=== PATIENT | male | born 1965 | race Caucasian/White ===

== ENCOUNTER 2018-03-22 14:25 | Outpatient (CLI) | payer MEDICAID, SELFPAY ==
--- NOTE | 2018-03-22 13:02 | DI.RAD_ITS ---
SYMPTOM/DIAGNOSIS: BLUNT TRAUMA, LT SIDE OF HEAD, CERVICAL SPINE: Odontoid, AP and lateral and bilateral oblique views were obtained. There are no priors for comparison. There is normal alignment of the cervical spine. The odontoid is intact. The lateral masses are well aligned. No acute or healing fractures or subluxations are seen. Mild degenerative changes are seen in the cervical spine, particularly at the C 5-6 level. The bones are normally mineralized. There is no prevertebral soft tissue swelling. IMPRESSION: No acute or healing fracture or subluxation in the cervical spine.
== END 2018-03-22 14:45 ==
PROVIDERS: PCP Family Medicine; Visit Provider Family Medicine
DX: S09.90XA Unspecified injury of head, initial encounter
CPT/HCPCS: 72050

== ENCOUNTER 2020-11-04 10:31 | Outpatient (CLI) | payer MEDICAID, SELFPAY ==
[2020-11-04 12:32] LABS: Hemoglobin A1C 5.3 % (<5.7)
[2020-11-04 12:37] LABS: ALT 33 U/L (16-63); AST 23 U/L (15-37); Albumin 3.7 g/dL (3.4-5.0); Alkaline Phosphatase 63 U/L (46-116); Anion Gap 7.9 mmol/L (3-11); BUN 14 mg/dL (7-18); Bilirubin, Total 0.8 mg/dL (0.2-1.0); CO2 30.1 mmol/L (21.0-32.0); CREATININE 1.2 mg/dL (0.70-1.30); Calcium 9.2 mg/dL (8.5-10.1); Calculated LDL 143 mg/dL (<100); Chloride 104 mmol/L (98-107); Cholesterol 200 mg/dL (<200); Glucose 98 mg/dL (74-106); HDL Cholesterol 45 mg/dL (40-60); Potassium 4.2 mmol/L (3.5-5.1); Sodium 142 mmol/L (136-145); Total Protein 6.7 g/dL (6.4-8.2); Triglyceride 62 mg/dL (<150)
[2020-11-04 17:00] LABS: PSA, Screening 0.7 ng/mL (0.0-3.5)
== END 2020-11-04 10:32 | disposition home or self-care (01) ==
LOC: LOS 10:32
PROVIDERS: PCP Nurse Practitioner Family; Referring Provider Nurse Practitioner Family; Visit Provider Nurse Practitioner Family
DX: Z13.228 Encounter for screening for other metabolic disorders (principal); Z13.1 Encounter for screening for diabetes mellitus; Z13.220 Encounter for screening for lipoid disorders; Z12.5 Encounter for screening for malignant neoplasm of prostate; Z00.00 Encounter for general adult medical examination without abnormal findings
CPT/HCPCS: 36415; 80053; 80061; 84153; 83036

== ENCOUNTER 2021-02-10 19:05 | Outpatient (REF) | payer MEDICAID, SELFPAY ==
[2021-02-10 22:03] LABS: Bilirubin Negative (Negative); Blood Trace-intact (Negative); Clarity Sl Cloudy (Clear); Glucose Negative (Negative); Ketones Negative (Negative); Leukocyte Esterase Small (Negative); Nitrite Negative (Negative); Specific Gravity 1.025 (1.005-1.025); Urobilinogen 0.2 EU/dL (Up TO 0.2)
[2021-02-10 22:12] LABS: Bacteria Few HPF (Negative); C & S Indicated? Yes; Casts Negative LPF (Negative); Crystals Negative HPF (Negative); Epithelial Cells Few HPF (Negative); Mucus Negative (Negative)
== END 2021-02-10 19:06 | disposition home or self-care (01) ==
LOC: NCHCN 19:05
PROVIDERS: PCP Nurse Practitioner Family; Visit Provider Physician Assistant
DX: N39.0 Urinary tract infection, site not specified (principal)
CPT/HCPCS: 87077; 81003; 81015; 87086; 87186

== ENCOUNTER 2021-05-14 12:18 | Outpatient (CLI) | payer MEDICAID, SELFPAY ==
--- NOTE | 2021-05-14 12:00 | DI.RAD_ITS ---
Exam(s) XR ANKLE RT COMPLETE EXAM: XR ANKLE RT COMPLETE CLINICAL HISTORY: Dropped a dump truck tailgate on right ankle, injury, S92.580D. TECHNIQUE: 2D digital imaging was performed. COMPARISON: No exams were available for comparison FINDINGS: There is soft tissue swelling laterally but no fracture or widening of the mortise. Talar dome unrem arkable. Base of the 5th metatarsal is unremarkable. No osseous tarsal coalition. Bone density nor mal. IMPRESSION: Soft tissue swelling but no acute fractures evident. DATA REPOSITORY: RADIATION DOSE DELIVERED:
== END 2021-05-14 12:38 ==
PROVIDERS: PCP Nurse Practitioner Family; Visit Provider Nurse Practitioner Family
DX: M79.9 Soft tissue disorder, unspecified (principal)
CPT/HCPCS: 73610

== ENCOUNTER 2022-05-12 13:44 | Inpatient (IN) | payer MEDICAID, SELFPAY ==
[2022-05-12] VITALS (25 sets, daily range): BP systolic 111–124; BP diastolic 69–76; PULSE 59–74; RESP 15–27; TEMP 36.9–37; O2SAT 92–99
--- NOTE | 2022-05-12 14:00 | DI.RAD_ITS ---
Exam(s) XR PORTABLE CHEST AP EXAM: XR PORTABLE CHEST AP CLINICAL HISTORY: Covid Positive, Productive cough, R/O PNA. TECHNIQUE: 2D digital imaging was performed. COMPARISON: CR CHEST 2 VIEWS PA,LAT from 07/27/2017 FINDINGS: Single AP portable view. Heart size is upper normal. The mediastinum is not widened. There are extensive patchy bilateral infiltrates throughout both lung carlin. No obvious pleural eff usions. IMPRESSION: Bilateral extensive patchy infiltrates No obvious pleural effusions evident. DATA REPOSITORY: RADIATION DOSE DELIVERED:
--- NOTE | 2022-05-12 14:31 | ED.GENADUL_ITS ---
Discharge Plan Disposition Patient Disposition: Admit to [facility] Condition: Serious Discharge Details Clinical Impression: COVID-19, Hypoxia Admit Date/Time: 05/12/22 16:39 Admit Provider: Kathia Peterson Attending Provider: Kathia Peterson Primary Care Provider: Nathaniel Gallagher ED Provider: Juan Samuels Discharge Data Discharge Date/Time-TO BE ENTERED AT DEPARTURE: 05/12/22 17:28 Medical Decision Making <Martha Valdez NP - Last Filed: 05/14/22 08:40> 56-year-old male presents to the ER with chief complaint of increased shortness of breath and productive cough with thick brown sputum. He reports that a week ago Wednesday he was tested positive for COVID. He reports that this morning he was given a oximeter and after walking to the bathroom his oxygen dropped to 75% on room air he sat down approximately 15 minutes later it came up above 90. He has no significant past medical history other than obesity. He reports increased fatigue decreased appetite and diarrhea fever and body aches. Patient moved to a monitored room to allow for continuous pulse oximetry, labs ordered including procalcitonin chest x-ray shows bilateral patchy infiltrates consistent with COVID-19. Informed staff development coordinator that patient desatted to 85% on room air upon walking to a different room was placed on 2 L nasal cannula and is now satting 97%. Work-up ordered including CBC, CMP, troponin, procalcitonin, dexamethasone 6 mg IV, normal saline and remdesivir. Blood cultures x2 ordered chest CT without contrast. CBC shows white blood cell count of 3.34, leukopenia, BUN 20 creatinine 1.1, calcium slightly low at 8.3, AST and ALT are elevated at 92 and 105 initial troponin within normal limits less than 50, albumin is 2.8 procalcitonin is pending at this time. 1526: Hospitalist paged, I did discuss possible admission due to the hypoxia with patient who verbalizes understanding and is in agreement with plan. Remdesivir was ordered, 1536: Spoke with Dr. Cardoza with hospitalist she would like to wait till CT chest is completed and D-dimer. I did discuss patient case in details with her. She recommends adding on a D-dimer. This was placed. Care is to be handed off to oncoming provider Yash Samuels NP pending CT chest and admission. ND 1600-patient signed out to me pending CT imaging and admission. Please see previous documentation for initial work-up by Martha Valdez NP. We will co yonis to monitor patient. 1635-received verbal report from radiologist as stated significant COVID- pneumonia was noted but no pulmonary embolism. This was communicated to the hospitalist whom stated she would admit patient for further care. Patient remained stable throughout emergency department stay with stable vital signs. Lab Data Lab results reviewed: Yes I reviewed the patient's lab results. Labs: 05/12/22 14:46 Blood Blood Culture - Pending 05/12/22 14:46 Blood Blood Culture - Pending Laboratory Tests Range/Units 05/12/22 05/12/22 05/12/22 14:40 14:40 14:40 WBC (4.4-10.8) 10^3/uL 3.34 L RBC (4.36-5.78) 10^6/uL 4.55 Hgb (13.5-17.5) g/dL 14.8 Hct (40.0-50.0) % 43.6 MCV (80-95) fL 96 H MCH (27.0-33.0) pg 32.5 MCHC (32.0-36.0) % 33.9 RDW (11.8-14.1) % 12.8 Plt Count (130-400) 10^3/uL 157 MPV (8.0-11.0) fL 8.4 Immature Gran % 0.3 Neutrophils % 70.9 Lymphocytes % 21.9 Monocytes % 6.3 Eosinophils % 0.3 Basophils % 0.3 Nucleated RBC % (0.0-0.3) % 0.0 Absolute Neutrophils (1.2-6.7) 10^3/uL 2.37 Absolute Lymphocytes (1.2-3.4) 10^3/uL 0.73 L Absolute Monocytes (0.1-0.8) 10^3/uL 0.21 Absolute Eosinophils (0.0-0.7) 10^3/uL 0.01 Absolute Basophils (0.0-0.2) 10^3/uL 0.01 Sodium (136-145) mmol/L 141 Potassium (3.5-5.1) mmol/L 3.7 Chloride (98-107) mmol/L 105 Carbon Dioxide (21.0-32.0) mmol/L 29.4 Anion Gap (3-11) mmol/L 6.6 BUN (7-18) mg/dL 20 H Creatinine (0.70-1.30) mg/dL 1.1 Est GFR (CKD-EPI 2020) (mL/min/1.73m2) 78.30 Glucose (74-106) mg/dL 101 Calcium (8.5-10.1) mg/dL 8.3 L Magnesium (1.8-2.4) mg/dL 2.2 Total Bilirubin (0.2-1.0) mg/dL 0.3 AST (15-37) U/L 92 H ALT (16-63) U/L 105 H Alkaline Phosphatase (46-116) U/L 102 Troponin I (<or=60) ng/L < 50 Total Protein (6.4-8.2) g/dL 6.7 Albumin (3.4-5.0) g/dL 2.8 L Procalcitonin ng/mL 0.2 <Juan Samuels DULSER - Last Filed: 05/12/22 21:46> 56-year-old male presents to the ER with chief complaint of increased shortness of breath and productive cough with thick brown sputum. He reports that a week ago Wednesday he was tested positive for COVID. He reports that this morning he was given a oximeter and after walking to the bathroom his oxygen dropped to 75% on room air he sat down approximately 15 minutes later it came up above 90. He has no significant past medical history other than obesity. He reports increased fatigue decreased appetite and diarrhea fever and body aches. Patient moved to a monitored room to allow for continuous pulse oximetry, labs ordered including procalcitonin chest x-ray shows bilateral patchy infiltrates consistent with COVID-19. Informed staff development coordinator that patient desatted to 85% on room air upon walking to a different room was placed on 2 L nasal cannula and is now satting 97%. Work-up ordered including CBC, CMP, troponin, procalcitonin, dexamethasone 6 mg IV, normal saline and remdesivir. Blood cultures x2 ordered chest CT without contrast. CBC shows white blood cell count of 3.34, leukopenia, BUN 20 creatinine 1.1, calcium slightly low at 8.3, AST and ALT are elevated at 92 and 105 initial troponin within normal limits less than 50, albumin is 2.8 procalcitonin is pending at this time. 1526: Hospitalist pageselena, I did discuss possible admission due to the hypoxia with patient who verbalizes understanding and is in agreement with plan. 1536: Spoke with Dr. Redding with hospitalist she would like to wait till CT chest is completed and D-dimer. I did discuss patient case in details with her. Care is to be handed off to oncoming provider Yash Samuels NP pending CT chest and admission. ND 1600-patient signed out to me pending CT imaging and admission. Please see previous documentation for initial work-up by Martha Valdez NP. We will continue to monitor patient. 1635-received verbal report from radiologist as stated significant COVID- pneumonia was noted but no pulmonary embolism. This was communicated to the hospitalist whom stated she would admit patient for further care. Patient remained stable throughout emergency department stay with stable vital signs. HPI <Martha Valdez NP - Last Filed: 05/14/22 08:40> General Mode of arrival: ambulatory . Date/Time Provider Initiated Documentation: 05/12/22 13:59 . Limitations to Documentation: no limitations . Information obtained by: patient, RN notes reviewed and old records reviewed . HPI Narrative: 56-year-old male presents to the ER with chief complaint of increased shortness of breath and productive cough with thick brown sputum. He reports that a week ago Wednesday he was tested positive for COVID. He reports that this morning he was given a oximeter and after walking to the bathroom his oxygen dropped to 75% on room air he sat down approximately 15 minutes later it came up above 90. He has no significant past medical history other than obesity. He reports increased fatigue decreased appetite and diarrhea fever and body aches. Upon arrival of breathing and pulse eupneic he is satting 92% on room air. No abdominal pain. Related Data Home Medications Medication Instructions Recorded Confirmed Unknown [No Known Home Meds] 05/14/21 05/12/22 Allergies Allergy/AdvReac Type Severity Reaction Status Date / Time bee venom protein (honey bee) Allergy Unknown Verified 05/12/22 13:55 General Stated Complaint: SOB BECKI: 3 Review of Systems <Martha Valdez NP - Last Filed: 05/14/22 08:40> All systems reviewed & are unremarkable except as noted in HPI and below Constitutional Constitutional: Reports body ache(s), Reports fatigue, Reports fever(s), Reports headache(s), Reports lethargy, Reports malaise and Reports poor appetite ENT Ears, Nose, Mouth, and Throat: Reports headache(s) Cardiovascular Cardiovascular: Reports dyspnea Respiratory Respiratory: Reports as per HPI, Reports cough, Reports excessive phlegm production and Reports dyspnea Gastrointestinal Gastrointestinal: Denies abdominal pain and Reports diarrhea Neurologic Neurologic: Reports headache(s) Endocrine Endocrine: Reports fatigue PFSH <Martha Valdez NP - Last Filed: 05/14/22 08:40> All Active Problems (Updated 05/12/22 @ 19:04 by Carla Martinez NP) Body aches (Acute) Fatigue (Acute) Discharge planning issues (Acute) DVT prophylaxis (Acute) Hypoxia (Acute) COVID-19 (Acute) Onset-05/03/22 Obesity (BMI 30.0-34.9) (Acute) Sprain of left thumb (Acute) Surgical History Colonoscopy - IV Sedation (10/05/16) Family History Mother , 65 No problems noted. Father , 81 No problems noted. Sister No problems noted. Brother No problems noted. Brother , 53 No problems noted. Brother No problems noted. Maternal Grandfather No problems noted. Paternal Grandfather , 77 No problems noted. Maternal Grandmother No problems noted. Paternal Grandmother , 91 No problems noted. Son No problems noted. Son No problems noted. Daughter No problems noted. Social History Smoking/Tobacco Use Status: Never Second Hand Exposure: Yes Smoking risk assessment performed?: Yes Alcohol Intake: never Drug use: Rarely Substance use type: marijuana Caregiver/Support person: No Household members: children Housing: house Communication Needs: None Do you need help understanding health information?: Never current occupation: DATA ENTRY PROCESSOR Pets and animals: Yes Pets and animals: cat(s) Sexually active: No Do you think of yourself as: straight/heterosexual Current gender identity: male What is your relationship status?: How often do you talk on the phone with friends or family?: three or more times per week How often do you get together with friends or relatives?: three or more times per week How often do you attend lutheran or faith services?: 1-3 times per year Do you belong to any clubs or organized social groups?: no Panel score (0-1 are the most socially isolated patients): 1 What type of physical activity do you participate in: other Details: Work Duration: 15-30 minutes/day Frequency: 5-6 times per week Francie/Taoist: Yazdanism Special francie needs: No Seatbelt use: sometimes Helmet use: Yes Helmet use: always Drive intox or ride w/intox after school driver: No Do you feel safe at home: Yes Do you feel safe in your relationship?: Yes Exam <Martha Valdez NP - Last Filed: 05/14/22 08:40> Narrative Exam Narrative: Constitutional: Alert and oriented x3. Appears stated age. Normal body habitus. Head: Normocephalic, no trauma. Eyes: Pupils PERRL, Red reflex noted, EOM's intact. Eyelids symmetrical without lesions, discharge, or swelling. ENT: Bilateral TM's WNL, External ear normal to inspection, no mastoid TTP, swelling, or erythema, Nasal turbinates WNL, no nasal discharge. Normal dentition, Posterior pharynx WNL, no exudate. Chest: RRR, Normal S1, S2, distal pulses intact. Resp: Lungs somewhat diminished on the basis, no wheezes, rales, or rhonchi. Abdomen: Soft, non-distended, Normoactive bowel sounds all 4 quads. Musculoskeletal: Normal gait, 5/5 strength to all four extremities. Skin: No suspicious rashes or lesions. Capillary refill less than 2 sec. Neurologic: Cranial nerves II-XII intact. Alert and oriented x 3. Motor: No deficits noted. Sensory: Intact bilaterally all 4 extremities. Reflexes: DTR's intact bilaterally.. Hematologic/Lymphatic: No ecchymosis, no lymphadenopathy. Course <Martha Valdez NP - Last Filed: 05/14/22 08:40> Vital Signs Vital signs: Vital Signs Temperature 37.0 C 05/12/22 13:53 Pulse 73 05/12/22 13:53 Respiratory Rate 20 05/12/22 13:53 Blood Pressure 111/69 05/12/22 13:53 Pulse Oximetry 92 05/12/22 13:53 Temperature 37.0 C 05/12/22 13:53 Temperature Source Temporal Artery Scan 05/12/22 13:53 Pulse 73 05/12/22 13:53 Respiratory Rate 20 05/12/22 14:20 Respiratory Effort 05/12/22 14:20 Respiratory Depth Normal 05/12/22 14:20 Respiratory Pattern Normal 05/12/22 14:20 Blood Pressure 111/69 05/12/22 13:53 Blood Pressure Position Sitting 05/12/22 13:53 Pulse Oximetry 92 05/12/22 13:53 Oxygen Delivery Method Room Air 05/12/22 13:53 Oxygen Flow Rate 0 05/12/22 13:53 Pain Level 0 05/12/22 13:53 Sign Out <Martha Valdez NP - Last Filed: 05/14/22 08:40> Sign Out Data: Sign Out Comment: COVID-positive, desats to 85% with exertion. Pending CT chest D-dimer and admission. I did speak with hospitalist regarding patient. Last updated by Martha Valdez NP at 05/12/22 15:46
[2022-05-12 14:46] LABS: Abs Immature Grans 0.01 10^3/uL (0.0-0.06); Absolute Basophil Count 0.01 10^3/uL (0.0-0.2); Absolute Eosinophil Count 0.01 10^3/uL (0.0-0.7); Absolute Lymphocyte Count 0.73 10^3/uL (1.2-3.4); Absolute Monocyte Count 0.21 10^3/uL (0.1-0.8); Absolute Neutrophil Count 2.37 10^3/uL (1.2-6.7); Basophils % 0.3; Eosinophils % 0.3; HCT 43.6 % (40.0-50.0); HGB 14.8 g/dL (13.5-17.5); Immature Grans % 0.3; Lymphocytes % 21.9; MCH 32.5 pg (27.0-33.0); MCHC 33.9 % (32.0-36.0); MCV 96 fL (80-95); MPV 8.4 fL (8.0-11.0); Monocytes % 6.3; Neutrophils % 70.9; Platelet Count 157 10^3/uL (130-400); RBC 4.55 10^6/uL (4.36-5.78); RDW 12.8 % (11.8-14.1); RDW-SD 45.3 fL; WBC 3.34 10^3/uL (4.4-10.8)
[2022-05-12 15:07] LABS: ALT 105 U/L (16-63); AST 92 U/L (15-37); Albumin 2.8 g/dL (3.4-5.0); Alkaline Phosphatase 102 U/L (46-116); Anion Gap 6.6 mmol/L (3-11); BUN 20 mg/dL (7-18); Bilirubin, Total 0.3 mg/dL (0.2-1.0); CO2 29.4 mmol/L (21.0-32.0); CREATININE 1.1 mg/dL (0.70-1.30); Calcium 8.3 mg/dL (8.5-10.1); Chloride 105 mmol/L (98-107); Glucose 101 mg/dL (74-106); Magnesium 2.2 mg/dL (1.8-2.4); Potassium 3.7 mmol/L (3.5-5.1); Sodium 141 mmol/L (136-145); Total Protein 6.7 g/dL (6.4-8.2); Troponin I < 50 ng/L (<or=60)
--- NOTE | 2022-05-12 15:15 | RT.EKG_ITS ---
APPROVED REPORT Exam: Resting ECG Reason for Exam: SOB Patient Location: E HR:75 bpm ECG Measurements Heart Rate 75 AXIS ID 178 P 35 QRSd 106 QRS -22 QT 394 T 15 QTc 439 Conclusion Sinus rhythm...normal P axis, V-rate 60- 99 Probable left ventricular hypertrophy...multiple LVH criteria
--- NOTE | 2022-05-12 15:30 | DI.CT_ITS ---
Exam(s) CT CHEST PE CTA EXAM: CT CHEST PE CTA CLINICAL HISTORY: R/O PE, Covid Positive. TECHNIQUE: Imaging Protocol: CT angiography of the chest was performed using pulmonary embolus elsy col. Multi planar reconstructions were performed. CONTRAST MATERIAL: Intravenous: Omnipaque 350 Contrast volume: 100 cc COMPARISON: CR XR PORTABLE CHEST AP from 05/12/2022 FINDINGS: CHEST: PULMONARY ARTERIES: There are no intraluminal filling defects to suggest acute pulmonary emboli. LUNGS: There are extensive bilateral ground-glass infiltrates involving all lobes both lungs, suspici ous for Covid- 19 pneumonia. There are no pleural effusions. MEDIASTINUM: There is no hilar nor mediastinal adenopathy. CARDIAC: Heart size is upper normal. There is no pericardial effusion.Caliber of the thoracic aorta is within normal limits. There is no significant shift of the interventricular septum. PARTIALLY VISUALIZED UPPERMOST ABDOMEN: No obvious findings OSSEOUS: No significant osseous lesions.There is a compression fracture of the mid-lower thoracic bod y superior endplate which does not have an acute appearance.. IMPRESSION: 1. Extensive bilateral ground-glass infiltrates highly suspicious for Covid-19 pneumonia..No pleural effusions. 2. No evidence of acute pulmonary emboli. 3. No evidence of aortic dissection. RADIATION DOSE DELIVERED: 530.3mGy.cm Total DLP DATA REPOSITORY: All CT scans at this facility are submitted to the National Radiology Data Registry (NRDR) Dose Index Registry (DIR) with the [employer] (ACR). RADIATION OPTIMIZATION: All CT scans at this facility use at least one of these dose optimization te chniques: automated exposure control; mA and/or kV adjustment per patient size (includes targeted exa ms where dose is matched to clinical indication); or iterative reconstruction.
[2022-05-12 15:36] LABS: Procalcitonin 0.2 ng/mL
[2022-05-12] MEDS: Dexamethasone 4 MG/ML VIAL 6 MG IVP (15:39)
[2022-05-12] MEDS: REMDESIVIR 200 MG in Normal Saline 250 ML 250 MG IVPB (15:39)
[2022-05-12] MEDS: Albuterol HFA 8 GM 60 PUFF INH IH (15:39)
[2022-05-12] MEDS: Normal Saline 1,000 ML 250 ML IV (15:39)
[2022-05-12 15:44] LABS: Source Nasal/Nares
[2022-05-12] MEDS: Normal Saline - Diluent 50 ML VIAL IV (15:57)
[2022-05-12] MEDS: Omnipaque 350 MG/ML 500 ML BTL-Imaging package IJ (16:03)
[2022-05-12 16:21] LABS: COVID-19 PCR POSITIVE (Negative)
[2022-05-12 16:38] LABS: D-Dimer 767 ng/mlFEU (<500)
[2022-05-12 17:11] LABS: Lab Add On Test DONE
[2022-05-12 17:23] LABS: C-Reactive Protein 9.76 mg/dL (0.0-0.3)
--- NOTE | 2022-05-12 17:58 | HPE_ITS ---
Date of service: 05/12/22 Time of Service: 17:58 Assessment and Plan Assessment and plan (1) COVID-19: Status: Acute Assessment and plan: Positive covid test at home 10 days ago. Positive Covid PCR here today. Increasing diff breathing - dexamethasone and remdesivir; oxygen as needed CTA of chest - No PE; significant bilat pneumonia Telemetry Continuous SPO2 monitoring (2) Fatigue: Status: Acute Assessment and plan: Rest, nutrition, melatonin @ HS (3) Body aches: Status: Acute Assessment and plan: Tylenol prn (4) Hypoxia: Status: Acute Assessment and plan: SPO2 currently > 92% RA Monitor - oxygen prn Acapella & IS (5) DVT prophylaxis: Status: Acute Assessment and plan: Enoxaparin (6) Discharge planning issues: Status: Acute Assessment and plan: Home when stable History of Present Illness History of Present Illness Chief Complaint: Shortness of breath Narrative: This is a 56-year-old male patient with no significant past medical history other than obesity, non-smoker, presented to the [facility] emergency department with the chief complaint of increased shortness of breath and productive cough, with thick brown sputum.? He reports he tested positive for COVID on 05/03/22.? He reports this morning he was given an oximeter and after walking to the bathroom and feeling short of breath, his oxygen dropped to 75% on room air. He states he then sat down for approximately 15 minutes, was not short of breath at rest, rechecked his SPO2 and it was above 90.? He states he feels fatigue, has a decreased appetite, diarrhea fever and body aches.? In the emergency department, he was not short of breath and SPO2 > 92% on room air.? He denied abdominal pain. Chest x-ray shows extensive bilateral patchy infiltrates consistent with COVID-19, no pleural effusions. Chest CT: 1. Extensive bilateral ground-glass infiltrates highly suspicious for Covid-19 pneumonia..No pleural effusions. 2. No evidence of acute pulmonary emboli. 3. No evidence of aortic dissection. CBC 3.34; H/H 14/43; K 3.7; BUN 20 Creat 1.1; Trop neg; procal 0.2 He has significant covid pneumonia, and is placed on observation status for Remdesevir infusion and steroids. He is stable on room air. Review of Systems All systems reviewed & are unremarkable except as noted in HPI and below PFSH All Active Problems (Updated 05/12/22 @ 19:04 by Carla Martinez NP) Body aches (Acute) Fatigue (Acute) Discharge planning issues (Acute) DVT prophylaxis (Acute) Hypoxia (Acute) COVID-19 (Acute) Onset-05/03/22 Obesity (BMI 30.0-34.9) (Acute) Sprain of left thumb (Acute) Surgical History Colonoscopy - IV Sedation (10/05/16) Family History Mother , 65 No problems noted. Father , 81 No problems noted. Sister No problems noted. Brother No problems noted. Brother , 53 No problems noted. Brother No problems noted. Maternal Grandfather No problems noted. Paternal Grandfather , 77 No problems noted. Maternal Grandmother No problems noted. Paternal Grandmother , 91 No problems noted. Son No problems noted. Son No problems noted. Daughter No problems noted. Social History Smoking/Tobacco Use Status: Never Second Hand Exposure: Yes Smoking risk assessment performed?: Yes Alcohol Intake: never Drug use: Rarely Substance use type: marijuana Caregiver/Support person: No Household members: children Housing: house Communication Needs: None Do you need help understanding health information?: Never current occupation: MEDICAL INSTRUMENT TECHNICIAN Pets and animals: Yes Pets and animals: cat(s) Sexually active: No Do you think of yourself as: straight/heterosexual Current gender identity: male What is your relationship status?: How often do you talk on the phone with friends or family?: three or more times per week How often do you get together with friends or relatives?: three or more times per week How often do you attend scientology or samaritan services?: 1-3 times per year Do you belong to any clubs or organized social groups?: no Panel score (0-1 are the most socially isolated patients): 1 What type of physical activity do you participate in: other Details: Work Duration: 15-30 minutes/day Frequency: 5-6 times per week Francie/Episcopalian: Restorationist Special francie needs: No Seatbelt use: sometimes Helmet use: Yes Helmet use: always Drive intox or ride w/intox emergency vehicle driver: No Do you feel safe at home: Yes Do you feel safe in your relationship?: Yes Meds Allergies and Home Medications Allergies Allergy/AdvReac Type Severity Reaction Status Date / Time bee venom protein (honey bee) Allergy Unknown Verified 05/12/22 13:55 Home Medications Medication Instructions Recorded Confirmed Type benzonatate 200 mg capsule 200 mg PO BID-TID PRN #30 caps 05/14/22 Rx prednisone 20 mg tablet 40 mg PO DAILY #10 tabs 05/14/22 Rx Exam Narrative Exam Narrative: Constitutional: Alert and oriented x3. Appears stated age. Normal body habitus. Head: Normocephalic, no trauma. Eyes: Pupils PERRL, Red reflex noted, EOM's intact. Eyelids symmetrical without lesions, discharge, or swelling. ENT: Bilateral TM's WNL, External ear normal to inspection, no mastoid TTP, swelling, or erythema, Nasal turbinates WNL, no nasal discharge. Normal dentiti on, Posterior pharynx WNL, no exudate. Chest: RRR, Normal S1, S2, distal pulses intact. Resp: Lungs somewhat diminished on the basis, no wheezes, rales, or rhonchi. Abdomen: Soft, non-distended, Normoactive bowel sounds all 4 quads. Musculoskeletal: Normal gait, 5/5 strength to all four extremities. Skin: No suspicious rashes or lesions. Capillary refill less than 2 sec. Neurologic: Cranial nerves II-XII intact. Alert and oriented x 3. Motor: No deficits noted. Sensory: Intact bilaterally all 4 extremities. Reflexes: DTR's intact bilaterally.. Hematologic/Lymphatic: No ecchymosis, no lymphadenopathy. Results Labs Result diagrams: 05/14/22 06:55 05/14/22 06:55 Labs: Laboratory Results - last 24 hr 05/12/22 05/12/22 05/12/22 14:40 14:40 14:40 WBC 3.34 L RBC 4.55 Hgb 14.8 Hct 43.6 MCV 96 H MCH 32.5 MCHC 33.9 RDW 12.8 Plt Count 157 MPV 8.4 Immature Gran % 0.3 Neutrophils % 70.9 Lymphocytes % 21.9 Monocytes % 6.3 Eosinophils % 0.3 Basophils % 0.3 Nucleated RBC % 0.0 Absolute Neutrophils 2.37 Absolute Lymphocytes 0.73 L Absolute Monocytes 0.21 Absolute Eosinophils 0.01 Absolute Basophils 0.01 D-Dimer Sodium 141 Potassium 3.7 Chloride 105 Carbon Dioxide 29.4 Anion Gap 6.6 BUN 20 H Creatinine 1.1 Est GFR (CKD-EPI 2020) 78.30 Glucose 101 Calcium 8.3 L Magnesium 2.2 Total Bilirubin 0.3 AST 92 H ALT 105 H Alkaline Phosphatase 102 Troponin I < 50 C-Reactive Protein Total Protein 6.7 Albumin 2.8 L Procalcitonin 0.2 COVID-19 Source SARS-CoV-2 (PCR) Add-On Test Request 05/12/22 05/12/22 05/12/22 14:40 15:30 15:55 WBC RBC Hgb Hct MCV MCH MCHC RDW Plt Count MPV Immature Gran % Neutrophils % Lymphocytes % Monocytes % Eosinophils % Basophils % Nucleated RBC % Absolute Neutrophils Absolute Lymphocytes Absolute Monocytes Absolute Eosinophils Absolute Basophils D-Dimer 767 H Sodium Potassium Chloride Carbon Dioxide Anion Gap BUN Creatinine Est GFR (CKD-EPI 2020) Glucose Calcium Magnesium Total Bilirubin AST ALT Alkaline Phosphatase Troponin I C-Reactive Protein 9.76 H Total Protein Albumin Procalcitonin COVID-19 Source Nasal/Nares SARS-CoV-2 (PCR) POSITIVE A* Add-On Test Request 05/12/22 16:37 WBC RBC Hgb Hct MCV MCH MCHC RDW Plt Count MPV Immature Gran % Neutrophils % Lymphocytes % Monocytes % Eosinophils % Basophils % Nucleated RBC % Absolute Neutrophils Absolute Lymphocytes Absolute Monocytes Absolute Eosinophils Absolute Basophils D-Dimer Sodium Potassium Chloride Carbon Dioxide Anion Gap BUN Creatinine Est GFR (CKD-EPI 2020) Glucose Calcium Magnesium Total Bilirubin AST ALT Alkaline Phosphatase Troponin I C-Reactive Protein Total Protein Albumin Procalcitonin COVID-19 Source SARS-CoV-2 (PCR) Add-On Test Request DONE Last Vital Signs Temp 37.0 C 05/12/22 13:53 Pulse 73 05/12/22 13:53 Resp 24 05/12/22 17:10 BP 111/69 05/12/22 13:53 Pulse Ox 94 05/12/22 17:10 PAWSS Have you Been Recently Intoxicated or Drunk Within the Last 30 days?: No Have you Ever Experienced Previous Episodes of Alcohol Withdrawal?: No Have you ever Experienced Withdrawal Seizures?: No Have you ever Experienced Delirium Tremens(DT)s?: No Have you ever undergone Alcohol Rehabilitation Treatment (i.e, inpt ot outpatient treatment programs)?: No Have you ever Experienced Blackouts?: No Have you ever Combined Alcohol with other Downers within the last 90 days?: No Have you ever Combined Alcohol with any other Substance of Abuse during the last 90 days?: No Positive Blood Alcohol level on Presentation? [PCS.BAL]: No Evidence of Increased Autonomic Activity (i.e. HR>120, tremor, sweating, agitation, nausea)?: No Result: 0
[2022-05-12] MEDS: Enoxaparin 40 MG/0.4 ML SYR SC (18:23)
[2022-05-12] MEDS: Acetaminophen 325 MG TAB PO (18:32)
[2022-05-12 18:46] LABS: Troponin I < 50 ng/L (<or=60)
[2022-05-12] MEDS: Ipratropium/Albuterol 4 GM 120 PUFF INH IH (21:05)
[2022-05-12] MEDS: Benzonatate 200 MG CAP PO (21:05)
[2022-05-12] MEDS: guaiFENesin 600 MG TABCR PO (21:05)
[2022-05-12] MEDS: Ascorbic Acid 500 MG TAB 1000 MG PO (21:05)
[2022-05-12] MEDS: Famotidine 20 MG TAB PO (21:05)
[2022-05-12] MEDS: Melatonin 3 MG TAB PO (21:06)
[2022-05-13] VITALS (15 sets, daily range): BP systolic 104–135; BP diastolic 62–86; PULSE 57–80; RESP 16–22; TEMP 36.2–37; O2SAT 88–98
[2022-05-13 07:07] LABS: Lactate 0.9 mmol/L (0.6-1.4)
[2022-05-13 07:08] LABS: Abs Immature Grans 0.01 10^3/uL (0.0-0.06); HCT 41.6 % (40.0-50.0); HGB 14.4 g/dL (13.5-17.5); MCH 32.8 pg (27.0-33.0); MCHC 34.6 % (32.0-36.0); MCV 95 fL (80-95); MPV 8.6 fL (8.0-11.0); Platelet Count 175 10^3/uL (130-400); RBC 4.39 10^6/uL (4.36-5.78); RDW 12.9 % (11.8-14.1); RDW-SD 45.2 fL; WBC 3.13 10^3/uL (4.4-10.8)
[2022-05-13 07:19] LABS: INR 0.9 (0.9-1.1); Prothrombin Time 9.3 sec (9.3-11.0)
[2022-05-13 07:44] LABS: D-Dimer 610 ng/mlFEU (<500)
[2022-05-13 07:55] LABS: ALT 116 U/L (16-63); AST 99 U/L (15-37); Albumin 2.5 g/dL (3.4-5.0); Alkaline Phosphatase 105 U/L (46-116); Anion Gap 8.5 mmol/L (3-11); BUN 21 mg/dL (7-18); Bilirubin, Direct 0.1 mg/dL (0.0-0.2); Bilirubin, Total 0.3 mg/dL (0.2-1.0); C-Reactive Protein 7.34 mg/dL (0.0-0.3); CO2 25.5 mmol/L (21.0-32.0); CREATININE 1.1 mg/dL (0.70-1.30); Calcium 8.3 mg/dL (8.5-10.1); Chloride 106 mmol/L (98-107); Glucose 114 mg/dL (74-106); Magnesium 2.1 mg/dL (1.8-2.4); PHOSPHORUS 3.8 mg/dL (2.6-4.7); Potassium 4.5 mmol/L (3.5-5.1); Sodium 140 mmol/L (136-145); Total Protein 6.3 g/dL (6.4-8.2)
[2022-05-13 08:07] LABS: Vitamin D 25 Total 98.6 ng/mL (30-100)
[2022-05-13 08:11] LABS: Absolute Neutrophil Count 2.47 10^3/uL (1.2-6.7)
[2022-05-13] MEDS: Zinc Sulfate 220 MG TAB PO (08:11)
[2022-05-13] MEDS: guaiFENesin 600 MG TABCR PO ×2 (08:11→21:19)
[2022-05-13] MEDS: Benzonatate 200 MG CAP PO ×3 (08:11→21:19)
[2022-05-13 08:12] LABS: Absolute Monocyte Count 0.16 10^3/uL (0.1-0.8); Atypical Lymphocytes % 5; Diff Comment Manual Differential; RBC Morphology Normal
[2022-05-13] MEDS: Ascorbic Acid 500 MG TAB 1000 MG PO ×2 (08:12→21:19)
[2022-05-13] MEDS: Cholecalciferol (Vitamin D3) 1,000 UNIT TAB 2000 UNITS PO (08:12)
[2022-05-13] MEDS: Dexamethasone 10 MG/ML VIAL 6 MG IVP (08:12)
[2022-05-13] MEDS: Ipratropium/Albuterol 4 GM 120 PUFF INH IH ×4 (08:21→20:15)
[2022-05-13 09:07] LABS: Ferritin 1857 ng/mL (26-388)
--- NOTE | 2022-05-13 14:00 | PHA.REVIEW2 ---
Pharmacy Admission Review - Admission Clinical Review (Last Reviewed 05/12/22 @ 14:34 by Martha Valdez NP) Body aches (Acute) Fatigue (Acute) Discharge planning issues (Acute) DVT prophylaxis (Acute) Hypoxia (Acute) COVID-19 (Acute) bee venom protein (honey bee) Allergy (Unknown, Verified 05/12/22 13:55) Resuscitation Status Full Code Height 5 ft 9 in Weight 87.8 kg - Comments Comments/Follow Ups: Remdesivir and dexamethasone initiated on 05/12, 0-3L sats in mid nineties - Renal Dosing Renal Dosing: BUN 21 mg/dL (7-18) H 05/13/22 06:55 Creatinine 1.1 mg/dL (0.70-1.30) 05/13/22 06:55 Medications needing adjustments: Reviewed List of meds needing interventions: eCrCl 81 ml/min - Anticoagulation Anticoagulation: Hgb 14.4 g/dL (13.5-17.5) 05/13/22 06:55 Hct 41.6 % (40.0-50.0) 05/13/22 06:55 Plt Count 175 10^3/uL (130-400) 05/13/22 06:55 INR 0.9 (0.9-1.1) 05/13/22 06:55 Creatinine 1.1 mg/dL (0.70-1.30) 05/13/22 06:55 DVT Prophylaxis: Reviewed Medications: Enoxaparin - Opiate Usage Evaluate Pain Scale/Pains Meds: N/A Scheduled Bowel Reg ordered if on Opiates?: No - Relevant Labs Sodium 140 mmol/L (136-145) 05/13/22 06:55 Potassium 4.5 mmol/L (3.5-5.1) 05/13/22 06:55 Chloride 106 mmol/L (98-107) 05/13/22 06:55 Phosphorus 3.8 mg/dL (2.6-4.7) 05/13/22 06:55 Magnesium 2.1 mg/dL (1.8-2.4) 05/13/22 06:55 C-Reactive Protein 7.34 mg/dL (0.0-0.3) H 05/13/22 06:55 Electrolytes, C-Reactive P, ESR: Reviewed - DM Control DM Control: Glucose 114 mg/dL (74-106) H 05/13/22 06:55 DM Control: N/A - Cardiac Review Cardiac Review: Troponin I < 50 ng/L (<or=60) 05/12/22 18:15 BP, HR, EF%: N/A - Qtc Review QTc: Reviewed If Elevated, List meds needing intervention: QTc 439 on admission - IV to PO Switch IV Medications: Reviewed - Home Meds Home Med List reviewed: Reviewed - Current meds Current Medication Order Review: Reviewed
[2022-05-13] MEDS: REMDESIVIR 100 MG in Normal Saline 250 ML 250 MG IVPB (14:20)
[2022-05-13] MEDS: Normal Saline Flush 10 ML SYR IVP (14:21)
[2022-05-13] MEDS: Normal Saline 500 ML IV (14:21)
--- NOTE | 2022-05-13 17:51 | INITIAL_ITS ---
- If Service Date Differs Date of service: 05/13/22 Time of Service: 17:51 Care Management Initial Assess REASON FOR HOSPITALIZATION:: COVID-19 Pneumonia with hypoxia PAST MEDICAL HISTORY/PAST SURGICAL HISTORY:: Body aches (Acute). Fatigue (Acute). Discharge planning issues (Acute). DVT prophylaxis (Acute). Hypoxia (Acute). COVID-19 (Acute). Onset-05/03/22. Obesity (BMI 30.0-34.9) (Acute). Sprain of left thumb (Acute). Surgical History . Colonoscopy - IV Sedation (10/05/16) PREVIOUS FUNCTIONAL STATUS/SOCIAL/FAMILY SUPPORTS:: Resides in [facility] at baseline. His son, Eddie resides in [place]. CURRENT FUNCTIONAL STATUS:: Assessment per chart review only; patient on COVID precautions. ADVANCE DIRECTIVES:: None on file. Has patient been provided with info about the portal/API?: Yes Did the patient sign up for the portal?: Yes CODE STATUS:: Full Code INSURANCE COVERAGE / FINANCIAL ISSUES:: [place] Medicaid PRIMARY CARE PHYSICIAN:: Nathaniel Gallagher POTENTIAL DISCHARGE NEEDS:: Follow up appointments. PATIENT/FAMILY EDUCATION NEEDS:: Review discharge instructions, discuss Ask Me Three. TRANSPORTATION:: Via private vehicle with [id number]. PLAN:: Anticipate Shawn will return home when ready per MD with no additional services anticipated at this time. He will transport via private vehicle with natural support or via EMS due to COVID. He will follow up with his PCP and plan of care as prescribed.
[2022-05-13] MEDS: Enoxaparin 40 MG/0.4 ML SYR SC (18:03)
--- NOTE | 2022-05-13 18:31 | W.PM.PROGNOT ---
Date of Service Date of service: 05/13/22 Time of Service: 18:32 Assessment and Plan Assessment and plan (1) COVID-19: Status: Acute Assessment and plan: Positive covid test at home 10 days ago. Positive Covid PCR here today. Increasing diff breathing - dexamethasone and remdesivir; oxygen as needed CTA of chest - No PE; significant bilat pneumonia Telemetry Continuous SPO2 monitoring (2) Fatigue: Status: Acute Assessment and plan: Rest, nutrition, melatonin @ HS (3) Body aches: Status: Acute Assessment and plan: Tylenol prn (4) Hypoxia: Status: Acute Assessment and plan: SPO2 currently > 92% RA Monitor - oxygen prn Acapella & IS (5) DVT prophylaxis: Status: Acute Assessment and plan: Enoxaparin (6) Discharge planning issues: Status: Acute Assessment and plan: Home when weaned off oxygen, hoping for tomorrow. discussed with DR Peterson Subjective Subjective Patient reports: no new complaints, feels better, tolerating liquids well, tolerating a regular diet, shortness of breath (markedly improved, remains hypoxic with activity) and afebrile Exam Const General: cooperative, healthy appearing, comfortable and no acute distress Nutritional Appearance: overweight Orientation: alert, awake and oriented x3 HENMT Head: normal to inspection, normocephalic and atraumatic Mouth: oral mucosae normal Chest Chest: normal inspection of the chest Resp Effort & Inspection: normal respiratory effort and able to speak in complete sentences Auscultation: rales bilaterally (fine) throughout, no rhonchi and no wheezes GI Inspection: normal to inspection Palpation: soft and nontender Auscultation: normal bowel sounds Skin General skin exam: no rashes or lesions noted Neuro General: patient alert, patient awake, patient oriented x3 and no focal motor deficits Cognition: normal cognition Speech: speech normal Motor: muscle tone normal throughout Extrem General: normal to inspection and full ROM Psych Appearance: grossly normal Speech and Movement: speech and movement normal Affect: normal affect Attitude: cooperative Objective Last Vital Signs Temp 36.2 C L 05/13/22 18:06 Pulse 60 05/13/22 18:06 Resp 20 05/13/22 18:06 BP 110/70 05/13/22 18:06 Pulse Ox 93 05/13/22 18:06 Laboratory Results - last 24 hr 05/12/22 05/13/2205/13/22 18:15 06:55 06:55 WBC RBC Hgb Hct MCV MCH MCHC RDW Plt Count MPV Immature Gran % Neutrophils % Lymphocytes % Atypical Lymphs % Monocytes % Eosinophils % Basophils % Nucleated RBC % Absolute Neutrophils Absolute Lymphocytes Absolute Monocytes Absolute Eosinophils Absolute Basophils RBC Morphology PT INR D-Dimer VBG Lactate Sodium 140 Potassium 4.5 Chloride 106 Carbon Dioxide 25.5 Anion Gap 8.5 BUN 21 H Creatinine 1.1 Est GFR (CKD-EPI 2020) 78.30 Glucose 114 H Calcium 8.3 L Phosphorus 3.8 Magnesium 2.1 Ferritin 1857 H Total Bilirubin 0.3 Conjugated Bilirubin 0.1 AST 99 H ALT 116 H Alkaline Phosphatase 105 Troponin I < 50 C-Reactive Protein 7.34 H Total Protein 6.3 L Albumin 2.5 L 25-OH Vitamin D Total 98.6 05/13/22 05/13/22 05/13/22 06:55 06:55 06:55 WBC 3.13 L RBC 4.39 Hgb 14.4 Hct 41.6 MCV 95 MCH 32.8 MCHC 34.6 RDW 12.9 Plt Count 175 MPV 8.6 Immature Gran % 0.0 Neutrophils % 79.0 Lymphocytes % 11.0 Atypical Lymphs % 5 Monocytes % 5.0 Eosinophils % 0.0 Basophils % 0.0 Nucleated RBC % 0.0 Absolute Neutrophils 2.47 Absolute Lymphocytes 0.50 L Absolute Monocytes 0.16 Absolute Eosinophils 0.00 Absolute Basophils 0.00 RBC Morphology Normal PT 9.3 INR 0.9 D-Dimer 610 H VBG Lactate 0.9 Sodium Potassium Chloride Carbon Dioxide Anion Gap BUN Creatinine Est GFR (CKD-EPI 2020) Glucose Calcium Phosphorus Magnesium Ferritin Total Bilirubin Conjugated Bilirubin AST ALT Alkaline Phosphatase Troponin I C-Reactive Protein Total Protein Albumin 25-OH Vitamin D Total PAWSS Have you Been Recently Intoxicated or Drunk Within the Last 30 days?: No Have you Ever Experienced Previous Episodes of Alcohol Withdrawal?: No Have you ever Experienced Withdrawal Seizures?: No Have you ever Experienced Delirium Tremens(DT)s?: No Have you ever undergone Alcohol Rehabilitation Treatment (i.e, inpt ot outpatient treatment programs)?: No Have you ever Experienced Blackouts?: No Have you ever Combined Alcohol with other Downers within the last 90 days?: No Have you ever Combined Alcohol with any other Substance of Abuse during the last 90 days?: No Positive Blood Alcohol level on Presentation? [PCS.BAL]: No Evidence of Increased Autonomic Activity (i.e. HR>120, tremor, sweating, agitation, nausea)?: No Result: 0
[2022-05-13] MEDS: Famotidine 20 MG TAB PO (21:19)
[2022-05-13] MEDS: Melatonin 3 MG TAB PO (21:19)
[2022-05-14] VITALS (8 sets, daily range): BP systolic 102–119; BP diastolic 64–75; PULSE 52–74; RESP 16–21; TEMP 36.2–36.9; O2SAT 89–95
[2022-05-14 07:17] LABS: Abs Immature Grans 0.04 10^3/uL (0.0-0.06); HCT 41.1 % (40.0-50.0); HGB 13.9 g/dL (13.5-17.5); MCH 32.4 pg (27.0-33.0); MCHC 33.8 % (32.0-36.0); MCV 96 fL (80-95); MPV 8.7 fL (8.0-11.0); Platelet Count 219 10^3/uL (130-400); RBC 4.29 10^6/uL (4.36-5.78); RDW 12.7 % (11.8-14.1); RDW-SD 45.4 fL; WBC 5.72 10^3/uL (4.4-10.8)
[2022-05-14 07:31] LABS: INR 0.9 (0.9-1.1); Prothrombin Time 9.4 sec (9.3-11.0)
[2022-05-14 07:36] LABS: ALT 107 U/L (16-63); AST 65 U/L (15-37); Albumin 2.5 g/dL (3.4-5.0); Alkaline Phosphatase 89 U/L (46-116); Anion Gap 6.5 mmol/L (3-11); BUN 28 mg/dL (7-18); Bilirubin, Direct 0.1 mg/dL (0.0-0.2); Bilirubin, Total 0.3 mg/dL (0.2-1.0); C-Reactive Protein 2.71 mg/dL (0.0-0.3); CO2 27.5 mmol/L (21.0-32.0); CREATININE 1.1 mg/dL (0.70-1.30); Calcium 8.5 mg/dL (8.5-10.1); Chloride 108 mmol/L (98-107); Glucose 114 mg/dL (74-106); Magnesium 2.1 mg/dL (1.8-2.4); Potassium 4.6 mmol/L (3.5-5.1); Sodium 142 mmol/L (136-145); Total Protein 6.4 g/dL (6.4-8.2)
[2022-05-14 07:45] LABS: Absolute Neutrophil Count 4.92 10^3/uL (1.2-6.7); Bands % 0
[2022-05-14 07:46] LABS: Absolute Lymphocyte Count 0.69 10^3/uL (1.2-3.4); Absolute Monocyte Count 0.11 10^3/uL (0.1-0.8); Atypical Lymphocytes % 5; Diff Comment Manual Differential; RBC Morphology Normal
[2022-05-14 07:54] LABS: D-Dimer 420 ng/mlFEU (<500)
[2022-05-14] MEDS: Ipratropium/Albuterol 4 GM 120 PUFF INH IH ×2 (08:08→12:00)
[2022-05-14] MEDS: guaiFENesin 600 MG TABCR PO (08:42)
[2022-05-14] MEDS: Zinc Sulfate 220 MG TAB PO (08:42)
[2022-05-14] MEDS: Ascorbic Acid 500 MG TAB 1000 MG PO (08:42)
[2022-05-14] MEDS: Cholecalciferol (Vitamin D3) 1,000 UNIT TAB 2000 UNITS PO (08:42)
[2022-05-14] MEDS: Benzonatate 200 MG CAP PO ×2 (08:43→13:36)
[2022-05-14] MEDS: Dexamethasone 10 MG/ML VIAL 6 MG IVP (08:43)
[2022-05-14] MEDS: Normal Saline Flush 10 ML SYR IVP (08:43)
--- NOTE | 2022-05-14 09:37 | PDOC.CMPRO ---
- If Service Date Differs Date of service: 05/14/22 Time of Service: 09:38 Care Management Progress Note S/O: A: Shawn is a 56 year old man admitted with Covid and pneumonia on 05/12/22 P:Anticipate Shawn will be discharged home with no new services when medically cleared by provider. He will follow up with his PCP and plan of care and transport with family. CM will support Shawn and assess for discharge planning needs.
[2022-05-14] MEDS: REMDESIVIR 100 MG in Normal Saline 250 ML 250 MG IVPB (13:37)
--- NOTE | 2022-05-14 14:51 | W.PM.DS.N ---
Date of service: 05/14/22 Time of Service: 14:51 DS: Diagnosis Discharge Diagnosis (1) COVID-19: Status: Acute Asessment and Plan: >10 days out; breathing improved; no oxygen requirements (2) Fatigue: Status: Resolved Asessment and Plan: Reports feeling more rested (3) Body aches: Status: Resolved (4) Hypoxia: Status: Resolved Asessment and Plan: no oxygen requirement Discharge Plan Disposition Patient Disposition: Home Condition: Improving Discharge Details Reason For Visit: COVID-19 Pneumonia with Hypoxia Admit Date/Time: 05/12/22 16:39 Admit Provider: Kathia Peterson Attending Provider: Kathia Peterson Primary Care Provider: Nathaniel Gallagher Hospital Course Hospital Course: This is a 56-year-old male patient with no significant past medical history other than obesity, non-smoker, presented to the [facility] emergency department with the chief complaint of increased shortness of breath and productive cough, with thick brown sputum.? He tested positive for COVID 19 on 05/03/22.? He was given an oximeter and after walking to the bathroom and also feeling short of breath, his oxygen dropped to 75% on room air.? He stated he then sat down for approximately 15 minutes, was not short of breath at rest, rechecked his SPO2 and it was above 90.? He complained of fatigue, having a decreased appetite, diarrhea fever and body aches.Chest x-ray showed extensive bilateral patchy infiltrates consistent with COVID-19, no pleural effusions. Chest CT: 1. Extensive bilateral ground-glass infiltrates highly suspicious for Covid-19 pneumonia..No pleural effusions. 2. No evidence of acute pulmonary emboli. 3. No evidence of aortic dissection. ?CBC 3.34; H/H 14/43; K 3.7; BUN 20 Creat 1.1; Trop neg; procal 0.2 He was diagnosed with significant covid pneumonia, and was placed on observation status for Remdesevir infusion and steroids.? He no longer has an oxygen requirement, vital signs have been stable, afebrile. He has received 3 doses of remdesevir. He is discharged stable to home with steroids and Benzonatate for cough as needed, along with albutlerol and combivent with a spacer as needed. Discussed with Dr Cherry Home Meds and New Rx's Prescriptions: New prednisone 20 mg tablet 40 mg PO DAILY Qty: 10 0RF benzonatate 200 mg capsule 200 mg PO BID-TID PRNQty: 30 0RF Discharge Instructions Instructions: Benzonatate (By mouth), Albuterol (By breathing), Ipratropium/Albuterol (By breathing), How to Use an Incentive Spirometer (DC), COVID-19 (Coronavirus Disease 2019) (DC) Stand Alone Forms: Nursing Discharge Form Referrals: Nathaniel Gallagher VINER OPERATOR [Primary Care Provider] - 06/08/22 3:40 pm () Activity:: Activity as Tolerated Equipment/Supplies:: No Equipment Needed Diet:: As Tolerated Discharge Orders Discharge Orders: Discharge Order (Routine); Ordered 05/14/22 Ordered By: Carla Martinez Discharge Data Discharge Date/Time-TO BE ENTERED AT DEPARTURE: 05/14/22 17:38 DS: Summary Time Spent with Patient providing and/or coordinating discharge services: Greater than 30 minutes Status at Discharge Functional status at discharge: independent ambulation Overall status at discharge: patient is back to baseline Mental Status: mental status grossly normal Speech and Movement: speech and movement normal Mood: congruent mood Affect: normal affect Exam Psych Mental Status: mental status grossly normal Speech and Movement: speech and movement normal Mood: congruent mood Affect: normal affect DS: Data Vitals/I&O Vitals and I&O: Vital Signs Temperature 36.9 C 05/14/22 14:38 Temperature Source Tympanic 05/14/22 14:38 Pulse 57 L 05/14/22 14:38 Pulse Rhythm Regular 05/14/22 08:45 Pulse 71 05/12/22 17:10 Respiratory Rate 16 05/14/22 14:38 Respiratory Effort Non-Labored 05/14/22 08:45 Respiratory Depth Normal 05/14/22 08:45 Respiratory Pattern Normal 05/14/22 08:45 Blood Pressure 119/64 05/14/22 14:38 Blood Pressure Position Sitting 05/12/22 13:53 Pulse Oximetry 92 05/14/22 14:38 Oxygen Delivery Method Room Air 05/14/22 14:38 Oxygen Flow Rate 0 05/14/22 14:38 Pain Level 0 05/14/22 14:38 Comment Sinus Rhythm 60-62- on monitor 05/13/22 01:22 Intake & Output 05/13/22 05/14/22 05/14/22 23:59 11:59 23:59 Intake Total 771.677 / 771.677 250 / 250 Output Total 200 / 500 1300 / 1300 Balance 571.677 / 271.677 -1300 / -1050 250 / -1050 Intake: IV 291.677 / 291.677 250 / 250 Oral 480 / 480 Output: Urine 200 / 500 1300 / 1300 Other: Urine Color Yellow Light Marni Urine Appearance Clear Clear Urine Odor None Voiding Methods Toilet Toilet Data Completed and Pending Labs on day of discharge: Labs from last 24 hours 05/14/22 05/14/22 05/14/22 06:55 06:55 06:55 WBC 5.72 RBC 4.29 L Hgb 13.9 Hct 41.1 MCV 96 H MCH 32.4 MCHC 33.8 RDW 12.7 Plt Count 219 MPV 8.7 Immature Gran % 0.0 Neutrophils % 86.0 Band Neutrophils % 0 Lymphocytes % 7.0 Atypical Lymphs % 5 Monocytes % 2.0 Eosinophils % 0.0 Basophils % 0.0 Nucleated RBC % 0.0 Absolute Neutrophils 4.92 Absolute Lymphocytes 0.69 L Absolute Monocytes 0.11 Absolute Eosinophils 0.00 Absolute Basophils 0.00 RBC Morphology Normal PT 9.4 INR 0.9 D-Dimer 420 Sodium 142 Potassium 4.6 Chloride 108 H Carbon Dioxide 27.5 Anion Gap 6.5 BUN 28 H Creatinine 1.1 Est GFR (CKD-EPI 2020) 78.30 Glucose 114 H Calcium 8.5 Magnesium 2.1 Total Bilirubin 0.3 Conjugated Bilirubin 0.1 AST 65 H ALT 107 H Alkaline Phosphatase 89 C-Reactive Protein 2.71 H Total Protein 6.4 Albumin 2.5 L Preliminary micro results at discharge 05/12/22 15:55 Blood Culture - Preliminary Blood NO GROWTH 24 HOURS 05/12/22 15:45 Blood Culture - Preliminary Blood NO GROWTH 24 HOURS PFSH All Active Problems (Updated 05/14/22 @ 17:35 by Carla Martinez NP) Discharge planning issues (Acute) DVT prophylaxis (Acute) COVID-19 (Acute) Onset-05/03/22 Obesity (BMI 30.0-34.9) (Acute) Sprain of left thumb (Acute) Surgical History Colonoscopy - IV Sedation (10/05/16) Family History Mother , 65 No problems noted. Father , 81 No problems noted. Sister No problems noted. Brother No problems noted. Brother , 53 No problems noted. Brother No problems noted. Maternal Grandfather No problems noted. Paternal Grandfather , 77 No problems noted. Maternal Grandmother No problems noted. Paternal Grandmother , 91 No problems noted. Son No problems noted. Son No problems noted. Daughter No problems noted. Social History Smoking/Tobacco Use Status: Never Second Hand Exposure: Yes Smoking risk assessment performed?: Yes Alcohol Intake: never Drug use: Rarely Substance use type: marijuana Caregiver/Support person: No Household members: children Housing: house Communication Needs: None Do you need help understanding health information?: Never current occupation: AMBULATORY TECHNOLOGIST Pets and animals: Yes Pets and animals: cat(s) Sexually active: No Do you think of yourself as: straight/heterosexual Current gender identity: male What is your relationship status?: How often do you talk on the phone with friends or family?: three or more times per week How often do you get together with friends or relatives?: three or more times per week How often do you attend mormonism or congregational services?: 1-3 times per year Do you belong to any clubs or organized social groups?: no Panel score (0-1 are the most socially isolated patients): 1 What type of physical activity do you participate in: other Details: Work Duration: 15-30 minutes/day Frequency: 5-6 times per week Francie/Buddhist: Zoroastrian Special francie needs: No Seatbelt use: sometimes Helmet use: Yes Helmet use: always Drive intox or ride w/intox airport shuttle driver: No Do you feel safe at home: Yes Do you feel safe in your relationship?: Yes
--- NOTE | 2022-05-14 17:11 | PDOC.CMDIS ---
- If Service Date Differs Date of service: 05/14/22 Time of Service: 17:11 LACE Index Scoring Tool - Questions: Length of Stay (in days): 2 Acuity (Admit via E.D.?): Yes E.D. Visits: 1 - Answers: Total Score: 6 Risk of Readmission: Low Risk Care Management Discharge Reason for Hospitalization: COVID-19 Pneumonia with hypoxia Discharge Plan: Shawn will return home with no additional services. He will transport via private vehicle with natural supportand follow up with his PCP and plan of care as prescribed. Patient/Family Education Needs: Review discharge instructions, activity, limitations, and discuss Ask Me Three.
== END 2022-05-14 17:38 | disposition home or self-care (01) | DRG 177 ==
LOC: ER 16:07 → MS 17:32
PROVIDERS: Registered Nurse Emergency; Admitting Provider Internal Medicine; Emergency Provider Nurse Practitioner Family; PCP Nurse Practitioner Family; Visit Provider Internal Medicine
DX: U07.1 COVID-19 (principal); J12.82 Pneumonia due to coronavirus disease 2019; R19.7 Diarrhea, unspecified; R09.02 Hypoxemia; M79.10 Myalgia, unspecified site; R53.83 Other fatigue; F12.90 Cannabis use, unspecified, uncomplicated; E66.9 Obesity, unspecified
CPT/HCPCS: 36415; 71275; 80048; 80053; 80076; 82306; 84145; 87040; 87635; 93005; 94618; 94640; 96361; 96365; 96375; 99285; J1650; 71045; 82728; 83605; 83735; 84100; 84484; 85025; 85379; 85610; 86140; 93010; 94664; 94667; 94760; 99222; 99232; 99239; J0248; J1100; J3490

== ENCOUNTER 2022-05-23 10:56 | Emergency (ER) | payer MEDICAID, SELFPAY ==
--- NOTE | 2022-05-23 10:45 | RT.EKG_ITS ---
APPROVED REPORT Exam: Resting ECG Reason for Exam: SOB Patient Location: E HR:72 bpm ECG Measurements Heart Rate 72 AXIS OR 183 P 32 QRSd 105 QRS -23 QT 376 T 8 QTc 410 Conclusion Sinus rhythm...normal P axis, V-rate 60- 99 Probable left ventricular hypertrophy...multiple LVH criteria
[2022-05-23 11:15] LABS: Lactate 1.6 mmol/L (0.6-1.4)
--- NOTE | 2022-05-23 11:16 | DI.CT_ITS ---
Exam(s) CT CHEST PE CTA EXAM: CT CHEST PE CTA CLINICAL HISTORY: Hx of Covid, SOB, Hypoxia. TECHNIQUE: Imaging Protocol: Axial CT angiography was performed with multi-slice acquisition and mu lti-planar reconstructions as well as axial, coronal and sagittal MIP reconstructions. CONTRAST MATERIAL: Intravenous: Omnipaque 350 Contrast volume:100 ml COMPARISON: CT CT CHEST PE CTA from 05/12/2022 FINDINGS: Pulmonary Arteries: No evidence of filling defect to suggest pulmonary emboli. Tracheobronchial tree: Patent where visualized. Mediastinum and Divya: No dominant adenopathy or fluid collection. Pulmonary parenchyma: Evaluation of the pulmonary parenchyma is limited by expiratory changes. Patch y bilateral infiltrates are again demonstrated, not significantly changed from prior exam, consistent with COVID- 19 pneumonia. Pleura: No effusion or pneumothorax. Heart: The heart is not dilated. No coronary artery calcifications are seen. Aorta: Thoracic aorta non-dilated. No aneurysm. No dissection. Upper abdomen: Unremarkable. Bones: Unremarkable for age. Tubes, Catheters, and Lines: None IMPRESSION: No evidence of pulmonary embolism. Roughly stable bilateral infiltrates. RADIATION DOSE DELIVERED: 485.37mGy.cm Total DLP DATA REPOSITORY: All CT scans at this facility are submitted to the National Radiology Data Registry (NRDR) Dose Index Registry (DIR) with the [employer] (ACR). RADIATION OPTIMIZATION: All CT scans at this facility use at least one of these dose optimization te chniques: automated exposure control; mA and/or kV adjustment per patient size (includes targeted exa ms where dose is matched to clinical indication); or iterative reconstruction.
[2022-05-23 11:18] LABS: Abs Immature Grans 0.06 10^3/uL (0.0-0.06); Absolute Basophil Count 0.02 10^3/uL (0.0-0.2); Absolute Monocyte Count 0.54 10^3/uL (0.1-0.8); Absolute Neutrophil Count 7.53 10^3/uL (1.2-6.7); Basophils % 0.2; HCT 46.2 % (40.0-50.0); HGB 15.7 g/dL (13.5-17.5); Immature Grans % 0.7; Lymphocytes % 8.9; MCH 31.9 pg (27.0-33.0); MCV 94 fL (80-95); MPV 8.5 fL (8.0-11.0); Neutrophils % 84.2; Platelet Count 249 10^3/uL (130-400); RBC 4.92 10^6/uL (4.36-5.78); RDW 11.8 % (11.8-14.1); RDW-SD 41.1 fL; WBC 8.95 10^3/uL (4.4-10.8)
--- NOTE | 2022-05-23 11:19 | W.ED.GENAD ---
Discharge Plan Disposition Patient Disposition: Home Condition: Stable Discharge Details Clinical Impression: Pneumonia due to COVID-19 virus Primary Care Provider: Nathaniel Gallagher ED Provider: Martha Valdez Home Meds and New Rx's Prescriptions: New doxycycline hyclate 100 mg tablet 100 mg PO BID 10 Days Qty: 20 0RF Rx Instructions: Take 1 tablet twice daily x10 days No Action prednisone 20 mg tablet 10 - 60 mg PO DAILY Qty: 11 0RF Rx Instructions: take 2 tabs x 3 days , then 1 tab x 3 days, then 1/2 tab x 4 days benzonatate 200 mg capsule 200 mg PO BID-TID PRNQty: 30 0RF Discharge Instructions Instructions: Pneumonia (ED) Additional Instructions: Please continue to use the inhaler as previously prescribed 1 to 2 puffs every 4-6 hours. Take the antibiotic twice daily with yogurt or probiotic for the next 10 days. Please continue to monitor your oxygen saturation at home please return to the ER for any worsening in condition, continued shortness of breath, O2 sat 85% or less. Follow up with primary care provider in 3-5 days. Return to ED sooner if any worsening or concerns. Increase oral fluids. Please take Tylenol or Ibuprofen with food every 4-6 hours as needed for pain and swelling. At this time until testing positive for COVID however you may continue to do so for the next 7 to 10 days. Referrals: Nathaniel Gallagher, TECHNOLOGY SERVICES MANAGER [Primary Care Provider] - 5 days Medical Decision Making 56-year-old male presents to the ER with chief complaint of shortness of breath. He had a recent diagnosis of COVID-19 pneumonia was admitted into the hospital and released on May 14 he was seen in express care yesterday after having some exertional dyspnea. Patient was placed on a prednisone taper which she is taking currently, had home O2 ordered for him which he has not received yet. Cardiac work-up ordered including serial troponins, EKG was obtained by staff development coordinator, CT chest rule out PE ordered. Lactate blood cultures ordered. proBNP added on due to increase shortness of breath upon lying flat. CBC shows no leukocytosis, absolute neutrophils 7.53, lactate slightly elevated at 1.6, sodium 137 potassium 3.7, glucose 129, ALT 64 which is improved from his previous AST 20 alk phos 92, initial troponin within normal limits less than 50, C-reactive protein is elevated at 3.50, proBNP within normal limits at 56. Procalcitonin is less than 0.1 COVID swab is positive. CT chest shows that previously seen groundglass densities now appear as areas of lung consolidation with continued diffuse and bilateral distribution most likely multifocal pneumonia. No PE. Road test performed with pulse oximeter, RN reports that O2 sat dropped to 88% for couple of seconds and then came back up to 92. Patient has been satting 93-94% the majority of his stay while at rest. Discussed at length options and did offer admission to the patient. Patient prefers to be discharged home for antibiotic trial at this time. He is scheduled to have oxygen on Wednesday. I did discuss strict return instructions instructed him to continue using the inhaler, monitoring his oxygen saturation and to return if you feel sicker at any time. He verbalizes understanding. Patient was given a gram of Rocephin here in the department IV and was prescribed 100 mg of doxycycline twice daily x10 days. This text was generated using [employer] dictation system, please disregard any oddities of phrase or misspellings. Imaging Data Radiologic Study: Imaging: CT Scan Radiologist's impression: CT chest CTA rule out PE: FINDINGS: Pulmonary arteries: Negative for acute pulmonary embolism. Aorta: Unremarkable. No aortic aneurysm. No aortic dissection. Lungs: Previously seen ground-glass densities now appear as areas of lung consolidation, with air bronchograms. Continued diffuse and bilateral distribution. Pleural spaces: Unremarkable. No pneumothorax. No pleural effusion. Heart: Unremarkable. No cardiomegaly. No pericardial effusion. Lymph nodes: Unremarkable. No enlarged lymph nodes. Bones/joints: Unremarkable. No acute fracture. Soft tissues: Unremarkable. IMPRESSION: 1. Negative for acute pulmonary embolism. 2. Previously seen ground-glass densities now appear as areas of lung consolidation, with air bronchograms. Continued diffuse and bilateral distribution. Likely multifocal pneumonia. Thank you for allowing us to participate in the care of your patient. Dictated and Authenticated by: Bonnie Stanford MD Lab Data Lab results reviewed: Yes I reviewed the patient's lab results. Labs: 05/23/22 11:35 Blood Blood Culture - Pending 05/23/22 11:05 Blood Blood Culture - Pending Laboratory Tests Range/Units 05/23/22 05/23/22 05/23/22 11:08 11:08 11:08 WBC (4.4-10.8) 10^3/uL 8.95 RBC (4.36-5.78) 10^6/uL 4.92 Hgb (13.5-17.5) g/dL 15.7 Hct (40.0-50.0) % 46.2 MCV (80-95) fL 94 MCH (27.0-33.0) pg 31.9 MCHC (32.0-36.0) % 34.0 RDW (11.8-14.1) % 11.8 Plt Count (130-400) 10^3/uL 249 MPV (8.0-11.0) fL 8.5 Immature Gran % 0.7 Neutrophils % 84.2 Lymphocytes % 8.9 Monocytes % 6.0 Eosinophils % 0.0 Basophils % 0.2 Nucleated RBC % (0.0-0.3) % 0.0 Absolute Neutrophils (1.2-6.7) 10^3/uL 7.53 H Absolute Lymphocytes (1.2-3.4) 10^3/uL 0.80 L Absolute Monocytes (0.1-0.8) 10^3/uL 0.54 Absolute Eosinophils (0.0-0.7) 10^3/uL 0.00 Absolute Basophils (0.0-0.2) 10^3/uL 0.02 VBG Lactate (0.6-1.4) mmol/L 1.6 H Sodium (136-145) mmol/L 137 Potassium (3.5-5.1) mmol/L 3.7 Chloride (98-107) mmol/L 101 Carbon Dioxide (21.0-32.0) mmol/L 29.1 Anion Gap (3-11) mmol/L 6.9 BUN (7-18) mg/dL 17 Creatinine (0.70-1.30) mg/dL 1.2 Est GFR (CKD-EPI 2020) (mL/min/1.73m2) 70.53 Glucose (74-106) mg/dL 129 H Calcium (8.5-10.1) mg/dL 9.2 Total Bilirubin (0.2-1.0) mg/dL 0.7 AST (15-37) U/L 20 ALT (16-63) U/L 64 H Alkaline Phosphatase (46-116) U/L 92 Troponin I (<or=60) ng/L < 50 C-Reactive Protein (0.0-0.3) mg/dL 3.50 H NT-Pro-B Natriuret Pep (<300) pg/mL 56 Total Protein (6.4-8.2) g/dL 8.0 Albumin (3.4-5.0) g/dL 3.1 L Procalcitonin ng/mL < 0.1 COVID-19 Source SARS-CoV-2 (PCR) (Negative) Range/Units 05/23/22 05/23/22 11:23 11:25 WBC (4.4-10.8) 10^3/uL RBC (4.36-5.78) 10^6/uL Hgb (13.5-17.5) g/dL Hct (40.0-50.0) % MCV (80-95) fL MCH (27.0-33.0) pg MCHC (32.0-36.0) % RDW (11.8-14.1) % Plt Count (130-400) 10^3/uL MPV (8.0-11.0) fL Immature Gran % Neutrophils % Lymphocytes % Monocytes % Eosinophils % Basophils % Nucleated RBC % (0.0-0.3) % Absolute Neutrophils (1.2-6.7) 10^3/uL Absolute Lymphocytes (1.2-3.4) 10^3/uL Absolute Monocytes (0.1-0.8) 10^3/uL Absolute Eosinophils (0.0-0.7) 10^3/uL Absolute Basophils (0.0-0.2) 10^3/uL VBG Lactate (0.6-1.4) mmol/L Sodium (136-145) mmol/L Potassium (3.5-5.1) mmol/L Chloride (98-107) mmol/L Carbon Dioxide (21.0-32.0) mmol/L Anion Gap (3-11) mmol/L BUN (7-18) mg/dL Creatinine (0.70-1.30) mg/dL Est GFR (CKD-EPI 2020) (mL/min/1.73m2) Glucose (74-106) mg/dL Calcium (8.5-10.1) mg/dL Total Bilirubin (0.2-1.0) mg/dL AST (15-37) U/L ALT (16-63) U/L Alkaline Phosphatase (46-116) U/L Troponin I (<or=60) ng/L C-Reactive Protein (0.0-0.3) mg/dL NT-Pro-B Natriuret Pep (<300) pg/mL Cancelled Total Protein (6.4-8.2) g/dL Albumin (3.4-5.0) g/dL Procalcitonin ng/mL COVID-19 Source Nasal/Nares SARS-CoV-2 (PCR) (Negative) POSITIVE A* HPI General Mode of arrival: ambulatory. Date/Time Provider Initiated Documentation: 05/23/22 10:59. Limitations to Documentation: no limitations. Information obtained by: patient, RN/MD (PCP/ Express Care), RN notes reviewed and old records reviewed. HPI Narrative: 56-year-old male presents to the ER with chief complaint of shortness of breath. He had a recent diagnosis of COVID-19 pneumonia was admitted into the hospital and released on May 14 he was seen in express care yesterday after having some exertional dyspnea. Patient was placed on a prednisone taper which she is taking currently, had home O2 ordered for him which he has not received yet. He is reporting some neck stiffness. Denies any nausea vomiting does report some diarrhea which seems to be resolving. No other associated symptoms. He does state that he is taking an inhaler with 2 medications in it he is unsure of the name. Related Data Home Medications Medication Instructions Recorded Confirmed benzonatate 200 mg capsule 200 mg PO BID-TID PRN #30 caps 05/14/22 05/22/22 prednisone 20 mg tablet 10 - 60 mg PO DAILY #11 tabs 05/22/22 05/22/22 doxycycline hyclate 100 mg tablet 100 mg PO BID pneumonia 10 days 05/23/22 #20 tabs Previous Rx's Medication Instructions Recorded benzonatate 200 mg capsule 200 mg PO BID-TID PRN #30 caps 05/14/22 prednisone 20 mg tablet 10 - 60 mg PO DAILY #11 tabs 05/22/22 doxycycline hyclate 100 mg tablet 100 mg PO BID pneumonia 10 days 05/23/22 #20 tabs Allergies Allergy/AdvReac Type Severity Reaction Status Date / Time bee venom protein (honey bee) Allergy Unknown Verified 05/22/22 14:03 General BECKI: 3 Review of Systems All systems reviewed & are unremarkable except as noted in HPI and below Cardiovascular Cardiovascular: Reports dyspnea and Reports dyspnea on exertion Respiratory Respiratory: Reports as per HPI, Reports chest congestion, Reports cough, Denies hemoptysis, Reports dyspnea, Reports dyspnea on exertion and Reports other (Worse with lying flat) PFSH All Active Problems (Updated 05/23/22 @ 14:23 by Martha Valdez NP) Pneumonia due to COVID-19 virus (Acute) COVID-19 (Acute) Onset-05/03/22 Obesity (BMI 30.0-34.9) (Acute) Sprain of left thumb (Acute) Surgical History Colonoscopy - IV Sedation (10/05/16) Family History Mother , 65 No problems noted. Father , 81 No problems noted. Sister No problems noted. Brother No problems noted. Brother , 53 No problems noted. Brother No problems noted. Maternal Grandfather No problems noted. Paternal Grandfather , 77 No problems noted. Maternal Grandmother No problems noted. Paternal Grandmother , 91 No problems noted. Son No problems noted. Son No problems noted. Daughter No problems noted. Social History Smoking/Tobacco Use Status: Never Second Hand Exposure: Yes Smoking risk assessment performed?: Yes Alcohol Intake: never Drug use: Rarely Substance use type: marijuana Caregiver/Support person: No Household members: children Housing: house Communication Needs: None Do you need help understanding health information?: Never current occupation: CIRCULAR DISTRIBUTOR Pets and animals: Yes Pets and animals: cat(s) Sexually active: No Do you think of yourself as: straight/heterosexual Current gender identity: male What is your relationship status?: How often do you talk on the phone with friends or family?: three or more times per week How often do you get together with friends or relatives?: three or more times per week How often do you attend anglican or alevism services?: 1-3 times per year Do you belong to any clubs or organized social groups?: no Panel score (0-1 are the most socially isolated patients): 1 What type of physical activity do you participate in: other Details: Work Duration: 15-30 minutes/day Frequency: 5-6 times per week Francie/Restorationist: Religious Special francie needs: No Seatbelt use: sometimes Helmet use: Yes Helmet use: always Drive intox or ride w/intox restaurant delivery driver: No Do you feel safe at home: Yes Do you feel safe in your relationship?: Yes Exam Narrative Exam Narrative: Constitutional: Alert and oriented x3. Appears stated age. Normal body habitus. Head: Normocephalic, no trauma. Eyes: Pupils PERRL, Red reflex noted, EOM's intact. Eyelids symmetrical without lesions, discharge, or swelling. ENT: Bilateral TM's WNL, External ear normal to inspection, no mastoid TTP, swelling, or erythema, Nasal turbinates WNL, no nasal discharge. Normal dentition, Posterior pharynx WNL, no exudate. Chest: RRR, Normal S1, S2, distal pulses intact. Resp: Lungs clear to auscultation bilaterally, no wheezes, rales, or rhonchi. Abdomen: Soft, non-distended, Normoactive bowel sounds all 4 quads. Musculoskeletal: Unable to assess gait, 5/5 strength to all four extremities. No edema noted to his lower extremities. Skin: No suspicious rashes or lesions. Capillary refill less than 2 sec. Neurologic: Cranial nerves II-XII intact. Alert and oriented x 3. Motor: No deficits noted. Sensory: Intact bilaterally all 4 extremities. Hematologic/Lymphatic: No ecchymosis, no lymphadenopathy. Course Lab/Test Results Lab/Test Results: 05/23/22 11:05 Blood Blood Culture - Pending 05/23/22 11:05 Blood Blood Culture - Pending Laboratory Tests Range/Units 05/23/22 11:08 VBG Lactate (0.6-1.4) mmol/L 1.6 H
[2022-05-23 11:21] VITALS: BP 106/71; PULSE 74; RESP 19; TEMP 36.7; O2SAT 93
[2022-05-23 11:43] LABS: Source Nasal/Nares
[2022-05-23 11:46] LABS: ALT 64 U/L (16-63); AST 20 U/L (15-37); Albumin 3.1 g/dL (3.4-5.0); Alkaline Phosphatase 92 U/L (46-116); Anion Gap 6.9 mmol/L (3-11); BUN 17 mg/dL (7-18); Bilirubin, Total 0.7 mg/dL (0.2-1.0); CO2 29.1 mmol/L (21.0-32.0); CREATININE 1.2 mg/dL (0.70-1.30); Calcium 9.2 mg/dL (8.5-10.1); Chloride 101 mmol/L (98-107); Estimated GFR 70.53 (mL/min/1.73m2); Glucose 129 mg/dL (74-106); NT-proBNP 56 pg/mL (<300); Potassium 3.7 mmol/L (3.5-5.1); Sodium 137 mmol/L (136-145); Troponin I < 50 ng/L (<or=60)
[2022-05-23] MEDS: Normal Saline Flush 10 ML SYR IVP (11:51)
[2022-05-23] MEDS: Normal Saline - Diluent 50 ML VIAL IJ (11:51)
[2022-05-23] MEDS: Omnipaque 350 MG/ML 100 ML BTL IJ (11:52)
[2022-05-23 12:01] LABS: Procalcitonin < 0.1 ng/mL
[2022-05-23 12:41] LABS: COVID-19 PCR POSITIVE (Negative)
--- NOTE | 2022-05-23 12:54 | DI.VRAD_ITS ---
PROCEDURE INFORMATION: Exam: CTA Chest With Contrast Exam date and time: 05/23/2022 12:01 PM Age: 56 years old Clinical indication: Shortness of breath and other: HX of covid x 3 weeks ago, hypoxia TECHNIQUE: Imaging protocol: Computed tomographic angiography of the chest with contrast. 3D rendering (Not supervised by radiologist): MIP and/or 3D reconstructed images were created by the technologist. Contrast material: OMNIPAQUE 350; Contrast volume: 100 ml; Contrast route: INTRAVENOUS (IV); COMPARISON: CT CHEST PE CTA 05/12/2022 3:39 PM FINDINGS: Pulmonary arteries: Negative for acute pulmonary embolism. Aorta: Unremarkable. No aortic aneurysm. No aortic dissection. Lungs: Previously seen ground-glass densities now appear as areas of lung consolidation, with air bronchograms. Continued diffuse and bilateral distribution. Pleural spaces: Unremarkable. No pneumothorax. No pleural effusion. Heart: Unremarkable. No cardiomegaly. No pericardial effusion. Lymph nodes: Unremarkable. No enlarged lymph nodes. Bones/joints: Unremarkable. No acute fracture. Soft tissues: Unremarkable. IMPRESSION: 1. Negative for acute pulmonary embolism. 2. Previously seen ground-glass densities now appear as areas of lung consolidation, with air bronchograms. Continued diffuse and bilateral distribution. Likely multifocal pneumonia. Dictated and Authenticated by: Bonnie Stanford MD. Ordering:ANH Thomas MD
[2022-05-23] MEDS: Normal Saline 1,000 ML 300 ML IV (12:57)
[2022-05-23] MEDS: methylPREDNISolone SUCC 125 MG VIAL IVP (12:57)
[2022-05-23 12:58] VITALS: BP 113/66; PULSE 67; RESP 20; O2SAT 93
[2022-05-23] MEDS: Albuterol/Ipratropium 3 ML UPD VIAL UPD (12:58)
[2022-05-23] MEDS: cefTRIAXone 1 GM/50 ML BAG IVPB (13:11)
[2022-05-23] MEDS: Doxycycline Hyclate 100 MG CAP PO (13:11)
[2022-05-23 13:28] VITALS: PULSE 89; RESP 20; O2SAT 94
[2022-05-23 14:45] VITALS: BP 113/69; PULSE 84; RESP 20; O2SAT 93
== END 2022-05-23 14:40 | disposition home or self-care (01) ==
PROVIDERS: Emergency Provider Registered Nurse Emergency; PCP Nurse Practitioner Family
DX: U07.1 COVID-19 (principal); J12.82 Pneumonia due to coronavirus disease 2019; R74.02 Elevation of levels of lactic acid dehydrogenase [LDH]; R79.82 Elevated C-reactive protein (CRP)
CPT/HCPCS: 36415; 71275; 80053; 84145; 87040; 87635; 93005; 94640; 96361; 96365; 96375; 99285; 83605; 83880; 84484; 85025; 86140; 93010; 99284; J0696; J2930; J3490; J7620

== ENCOUNTER 2022-05-29 11:58 | Outpatient (REF) | payer MEDICAID, SELFPAY ==
[2022-05-29 11:38] LABS: Bilirubin Negative (Negative); Blood Negative (Negative); Clarity Clear (Clear); Glucose Negative (Negative); Ketones Negative (Negative); Leukocyte Esterase Negative (Negative); Nitrite Negative (Negative); Specific Gravity 1.015 (1.005-1.025); Urobilinogen 0.2 EU/dL (Up TO 0.2)
[2022-05-29 12:04] LABS: C-Reactive Protein 0.92 mg/dL (0.0-0.3); TSH (W/Ref FT4) 1.82 uIU/mL (0.36-3.74)
[2022-05-29 19:32] LABS: Rheumatoid Factor 9.9 IU/mL (<12.0)
[2022-05-30 09:39] LABS: HIV-1/2 Ag & Ab Screen Negative (Negative)
[2022-05-31 12:29] LABS: Fungitell Qualitative Negative (Negative); Fungitell Quantitative Value <31 pg/mL (<60 pg/mL)
[2022-06-01 08:53] LABS: IgE 272 IU/mL (<158)
[2022-06-01 09:36] LABS: Cyclic Citrullinated Peptide <2.5 U/mL (<5.0)
[2022-06-01 10:24] LABS: IgA 236 mg/dL (85-499); IgG 905 mg/dL (610-1616); IgM 185 mg/dL (35-242)
[2022-06-01 14:03] LABS: ANA Interpretation Positive (Negative); ANA Titer Pattern 1:640 Speckled
[2022-06-02 20:04] LABS: Blastomyces Ag Result Not Detected; Blastomyces Ag Value Not Detected
== END 2022-05-29 11:59 | disposition home or self-care (01) ==
LOC: LBN 11:58
PROVIDERS: PCP Nurse Practitioner Family; Visit Provider Student in an Organized Health Care Education/Training Program
DX: U07.1 COVID-19 (principal); J84.89 Other specified interstitial pulmonary diseases
CPT/HCPCS: 82784; 86200; 87389; 87449; 81003; 82785; 82787; 84443; 86038; 86140; 86431; 87385

== ENCOUNTER 2022-06-17 03:07 | Outpatient (CLI) | payer MEDICAID, SELFPAY ==
--- NOTE | 2022-06-17 08:15 | DI.CT_ITS ---
Exam(s) CT CHEST WO EXAM: CT CHEST WO CLINICAL HISTORY: f/u infiltrates after treatment,PNEUMONIA,J84.89 TECHNIQUE: Imaging Protocol: Axial computed tomography images with coronal and sagittal reformatted images were created and reviewed CONTRAST MATERIAL: Intravenous: Omnipaque 350 Contrast volume:structured data ml. COMPARISON: CR CHEST 2 VIEWS PA,LAT from 05/14/2017 CR CHEST 2 VIEWS PA,LAT from 07/27/[address] CHEST PE CTA from 05/12/2022 CR XR PORTABLE CHEST AP from 05/12/[address] CHEST PE CTA from 05/23/2022 FINDINGS: Pulmonary parenchyma: Interval improvement in bilateral infiltrates. Residual mild ground-glass opac ities and interstitial coarsening. No dominant measurable mass. Tracheobronchial tree: No bronchiectasis or mucous plugging. Mediastinum and Divya: No dominant adenopathy or fluid collection. Pleura: No effusion or pneumothorax. Heart: The heart is not dilated. No coronary artery calcifications are seen. Aorta: Thoracic aorta non-dilated. Upper abdomen: Unremarkable. Bones: Stable midthoracic compression fracture.Degenerative changes. Soft tissues: Unremarkable. IMPRESSION: Some interval improvement of bilateral infiltrates. Residual infiltrates and interstitial changes pe rsist. RADIATION DOSE DELIVERED: 586.05mGy.cm Total DLP DATA REPOSITORY: All CT scans at this facility are submitted to the National Radiology Data Registry (NRDR) Dose Index Registry (DIR) with the [employer] (ACR). RADIATION OPTIMIZATION: All CT scans at this facility use at least one of these dose optimization te chniques: automated exposure control; mA and/or kV adjustment per patient size (includes targeted exa ms where dose is matched to clinical indication); or iterative reconstruction.
== END 2022-06-17 03:27 ==
PROVIDERS: PCP Nurse Practitioner Family; Visit Provider Student in an Organized Health Care Education/Training Program
DX: J84.89 Other specified interstitial pulmonary diseases (principal); J18.9 Pneumonia, unspecified organism
CPT/HCPCS: 71250

== ENCOUNTER 2022-07-30 10:15 | Inpatient (IN) | payer MEDICAID, SELFPAY ==
[2022-07-30] VITALS (26 sets, daily range): BP systolic 98–114; BP diastolic 55–78; PULSE 74–116; RESP 1–36; TEMP 34–37.4; O2SAT 91–98
--- NOTE | 2022-07-30 10:15 | RT.EKG_ITS ---
APPROVED REPORT Exam: Resting ECG Reason for Exam: sob Patient Location: E HR:70 bpm ECG Measurements Heart Rate 70 AXIS MO 155 P 28 QRSd 99 QRS -21 QT 354 T 33 QTc 384 Conclusion Sinus rhythm...normal P axis, V-rate 60- 99
[2022-07-30] MEDS: methylPREDNISolone SUCC 125 MG VIAL IVP (10:37)
[2022-07-30] MEDS: Albuterol/Ipratropium 3 ML UPD VIAL 6 ML UPD (10:37)
[2022-07-30 10:39] LABS: Absolute Basophil Count 0.03 10^3/uL (0.0-0.2); Absolute Eosinophil Count 0.27 10^3/uL (0.0-0.7); Absolute Lymphocyte Count 2.68 10^3/uL (1.2-3.4); Absolute Monocyte Count 1.05 10^3/uL (0.1-0.8); Absolute Neutrophil Count 9.84 10^3/uL (1.2-6.7); Basophils % 0.2; Eosinophils % 1.9; HCT 46.1 % (40.0-50.0); HGB 15.1 g/dL (13.5-17.5); Immature Grans % 0.7; Lymphocytes % 19.2; MCH 31.5 pg (27.0-33.0); MCHC 32.8 % (32.0-36.0); MCV 96 fL (80-95); MPV 7.9 fL (8.0-11.0); Monocytes % 7.5; Neutrophils % 70.5; Platelet Count 196 10^3/uL (130-400); RDW 13.8 % (11.8-14.1); RDW-SD 48.2 fL; WBC 13.96 10^3/uL (4.4-10.8)
--- NOTE | 2022-07-30 10:41 | W.ED.GENAD ---
Discharge Plan Disposition Patient Disposition: Admit to [facility] Discharge Details Clinical Impression: Dyspnea, COVID-19 robert parker manifesting chronic dyspnea Admit Date/Time: 07/30/22 16:41 Admit Provider: Kathia Peterson Attending Provider: Kathia Peterson Primary Care Provider: Nathaniel Gallagher ED Provider: Juan Samuels Discharge Data Discharge Date/Time-TO BE ENTERED AT DEPARTURE: 07/30/22 17:31 Medical Decision Making Patient presenting to the emergency department for chief complaint of worsening shortness of breath. Patient has had ongoing shortness of breath and has become oxygen dependent after having COVID in April 2022. Since then he has had multiple visits with pulmonology and some med changes. He states that he has been seeing [facility] pulmonology clinic and had been placed recently on Levaquin for consideration of possible secondary pneumonia. He finished his medication yesterday but this morning had continued worsening shortness of breath. Patient has been using his inhalers and taking his steroids. Patient denies fever chills, does state chest pain with cough but otherwise no chest pain noted. Patient denies all other symptoms. Physical exam does show tachypneic patient with obvious shortness of breath, able to speak in 3 word sentences, diminished lung sounds mostly in bases but no obvious crackles are appreciated on my exam. We will plan on checking patient's labs, EKG, D-dimer and advanced imaging to be chest x-ray or CTA pending upon D-dimer results. Pending results we will give 2 DuoNebs [id number] and Solu-Medrol IV. Please see physician interpretation for full interpretation of EKG but upon my review patient is in sinus rhythm and no findings to suggest acute STEMI. Reviewed patient's labs and patient does have slight leukocytosis with WBC of 13.69 neutrophils of 9.84 and monocytes of 1.05. This elevation could be secondary to steroids patient has been on but also considered is that patient does have underlying reported pneumonia secondary to COVID. CMP does show potassium of 3.2 which will give oral potassium to replete that, carbon dioxide is 32.9 albumin of 2.9 otherwise CMP is unremarkable. BNP is 26 and patient is undetectable elevation of troponin. CTA showed no signs of pulmonary embolism but did have interval changes suggesting worsening infiltrate bilaterally. Reassessed patient and he stated slight improvement after the 2 DuoNebs but otherwise denied drastic improvement of symptoms. We will plan on contacting [facility] unix administrator due to patient having worsening CT findings in spite of multiple rounds of antibiotics. Patient is otherwise stable and I do not feel needs any other interventions but continued oxygen via nasal cannula. Spoke with Dr. Rodriguez at [facility] pulmonology department. She recommended sputum cultures, blood cultures, Solu-Medrol 125 daily or 60 twice daily. She reviewed CT imaging and said we could attempt trial of Lasix which 20 mg was ordered as push dose to see if that helps. We discussed antibiotics and she said she did not feel that there was directly any specific recommendation given that patient just finished Levaquin but we could consider doxycycline if we felt it was necessary. She stated there did not have bed capacity there but that patient could follow-up with them if he improved and could be discharged. Reassessed patient and patient stated that he did not feel comfortable going home. Contacted hospitalist for admission. She requested that we reach out to additional facilities to see if there was any availability pulmonology for bronchoscopy. Reached out to [facility] and [facility] which had no capacity for admissions. Recontacted hospitalist who agreed to have patient admitted at our facility. Medical Records Medical records reviewed: Yes I reviewed the patient's medical records. Imaging Data Radiologic Study: Attestation: I personally reviewed and interpreted this imaging study as follows: Imaging: CT Scan Radiologist's impression: Exam(s) CT CHEST PE CTA EXAM: CT CHEST PE CTA CLINICAL HISTORY: Shortness of breath, elevated D-dimer. TECHNIQUE: Imaging Protocol: Axial CT angiography was performed with multi-slice acquisition and multi-planar reconstructions as well as axial, coronal and sagittal MIP reconstructions. CONTRAST MATERIAL: Intravenous: Omnipaque 350 Contrast volume:100 ml COMPARISON: CR XR PORTABLE CHEST AP from 05/12/[address] CHEST PE CTA from 05/12/[address] CHEST PE CTA from 05/23/[address] CHEST WO from 06/17/2022 FINDINGS: Pulmonary Arteries: No evidence of filling defect to suggest pulmonary emboli. Tracheobronchial tree: Patent where visualized. Mediastinum and Divya: No dominant adenopathy or fluid collection. Pulmonary parenchyma: Limited evaluation due due to expiratory changes and respiratory motion. Bilateral infiltrates upper and lower lobe findings appear worse compared with prior. This could in part be secondary due to differences in inspiration. Pleura: No effusion or pneumothorax. Heart: The heart is not dilated. No coronary artery calcifications are seen. Aorta: Thoracic aorta non-dilated. No aneurysm. No dissection. Upper abdomen: Unremarkable. Bones: Stable midthoracic compression fracture. Tubes, Catheters, and Lines: None IMPRESSION: No evidence of pulmonary embolism. Interval worsening of bilateral infiltrates HPI General Mode of arrival: EMS. Date/Time Provider Initiated Documentation: 07/30/22 10:41. Limitations to Documentation: no limitations. Information obtained by: patient, RN notes reviewed and old records reviewed. History of Present Illness 56 year old M presents to the emergency department with the chief complaint of Shortness of breath, described as moderate, severe and similar to prior episodes, with intensity rated at 3. Quality is described as aching, and is localized to the chest. Patient reports no radiation. Patient started experiencing this week(s) (Chronic but worse over the last 3 weeks) and it has been constant. No relieving factors improve symptom(s), Other factors that worsen symptoms (Coughing worsens chest tightness) . Patient notes no other symptoms.. Patient did receive the following treatments prior to arrival, none Related Data Home Medications Medication Instructions Recorded Confirmed sulfamethoxazole 800 1 tab PO DAILY #60 tabs 05/29/22 07/31/22 mg-trimethoprim 160 mg tablet (Bactrim DS) ipratropium 20 mcg-albuterol 100 See Rx Instructions inhalation QID 06/09/22 07/31/22 mcg/actuation mist for inhalation PRN shortness of breath or wheezing #4 grams umeclidinium 62.5 mcg-vilanterol 1 inh inhalation DAILY 07/15/22 07/31/22 25 mcg/actuation powdr for inhalation (Anoro Ellipta) dextromethorphan-guaifenesin 30 1 tab PO BID 07/30/22 07/31/22 mg-600 mg tablet extended [id number] hr (Mucinex DM) prednisone 20 mg tablet 40 mg PO DAILY 07/30/22 07/31/22 Lactobacillus acidophilus 10 10,000 mmu cells PO DAILY 07/31/22 07/31/22 billion cell capsule (Probiotic) azithromycin 500 mg tablet 500 mg PO DAILY 07/31/22 07/31/22 Previous Rx's Medication Instructions Recorded sulfamethoxazole 800 1 tab PO DAILY #60 tabs 05/29/22 mg-trimethoprim 160 mg tablet (Bactrim DS) ipratropium 20 mcg-albuterol 100 See Rx Instructions inhalation QID 06/09/22 mcg/actuation mist for inhalation PRN shortness of breath or wheezing #4 grams Allergies Allergy/AdvReac Type Severity Reaction Status Date / Time bee venom protein (honey bee) Allergy Unknown Verified 07/30/22 10:44 General Stated Complaint: SOB BECKI: 3 Review of Systems Constitutional Constitutional: Denies chills and Denies fever(s) Cardiovascular Cardiovascular: Reports chest pain (Only with coughing), Denies syncope, Denies pedal edema, Denies lightheadedness, Reports dyspnea and Reports dyspnea on exertion Respiratory Respiratory: Reports as per HPI, Reports cough, Reports pain with cough, Reports dyspnea and Reports dyspnea on exertion Neurologic Neurologic: Denies syncope PFSH All Active Problems (Updated 08/08/22 @ 00:01 by NINO MONTOYA) Human metapneumovirus (hMPV) pneumonia (Acute) Right leg DVT (Acute) Edema of right ankle (Acute) Infiltrate of lung present on computed tomography (Acute) Dyspnea (Acute) COVID-19 long hauler manifesting chronic dyspnea (Acute) Respiratory failure with hypoxia (Acute) Organizing pneumonia (Acute) COVID-19 (Acute) Onset-05/03/22 Obesity (BMI 30.0-34.9) (Acute) Sprain of left thumb (Acute) Surgical History Colonoscopy - IV Sedation (10/05/16) H/O right wrist surgery x2 Family History Mother , 65 No problems noted. Father , 81 No problems noted. Sister No problems noted. Brother No problems noted. Brother , 53 No problems noted. Brother No problems noted. Maternal Grandfather No problems noted. Paternal Grandfather , 77 No problems noted. Maternal Grandmother No problems noted. Paternal Grandmother , 91 No problems noted. Son No problems noted. Son No problems noted. Daughter No problems noted. Social History Smoking/Tobacco Use Status: Never Second Hand Exposure: Yes Smoking risk assessment performed?: Yes Alcohol Intake: never Drug use: Rarely Substance use type: marijuana Details: The patient takes a teaspoon of CBD/THC oil at night to help him sleep Caregiver/Support person: No Household members: children Housing: house Communication Needs: None Do you need help understanding health information?: Never current occupation: JOB COUNSELOR Pets and animals: Yes Pets and animals: cat(s) Sexually active: No Do you think of yourself as: straight/heterosexual Current gender identity: male What is your relationship status?: How often do you talk on the phone with friends or family?: three or more times per week How often do you get together with friends or relatives?: three or more times per week How often do you attend pentecostalism or protestant services?: 1-3 times per year Do you belong to any clubs or organized social groups?: no Panel score (0-1 are the most socially isolated patients): 1 What type of physical activity do you participate in: other Details: Work Duration: 15-30 minutes/day Frequency: 5-6 times per week Francie/Cheondoism: Confucianist Special francie needs: No Seatbelt use: sometimes Helmet use: Yes Helmet use: always Drive intox or ride w/intox drivers license examiner: No Do you feel safe at home: Yes Do you feel safe in your relationship?: Yes Exam Const General: cooperative and not diaphoretic Nutritional Appearance: average body habitus Orientation: alert, awake and oriented x3 Limitations: mental status not altered Neck Neck: normal visual inspection, full ROM, trachea midline, supple and no anterior neck swelling Chest Chest: normal inspection of the chest Resp Effort & Inspection: not able to speak in complete sentences, labored, no respiratory distress and tachypneic Auscultation: diminished lung sounds Cardio Jugular venous pressure: no JVD Palpation: normal PMI Rate: regular rate Rhythm: regular rhythm Heart Sounds: S1 normal, S2 normal, no click, no gallops, no murmurs and no rubs Bruits: no abdominal aortic bruits and no carotid bruits Pulses: radial pulses present bilaterally 2+ Skin General skin exam: no rashes or lesions noted Neuro General: patient alert, patient awake, patient oriented x3, tone normal and moves all extremities Course Vital Signs Vital signs: Vital Signs Temperature 37.4 C 07/30/22 10:19 Pulse 99 H 07/30/22 10:19 Respiratory Rate 24 07/30/22 10:19 Blood Pressure 107/75 07/30/22 10:19 Pulse Oximetry 91 L 07/30/22 10:19 Temperature 37.4 C 07/30/22 10:19 Temperature Source Temporal Artery Scan 07/30/22 10:19 Pulse 99 H 07/30/22 10:19 Respiratory Rate 24 07/30/22 10:27 Respiratory Effort Short of Breath, Labored 07/30/22 10:27 Respiratory Depth Normal 07/30/22 10:27 Respiratory Pattern Normal 07/30/22 10:27 Blood Pressure 107/75 07/30/22 10:19 Pulse Oximetry 96 07/30/22 10:37 Oxygen Delivery Method Nasal Cannula 07/30/22 10:37 Oxygen Flow Rate 8 07/30/22 10:37 Pain Level 0 07/30/22 10:19 Lab/Test Results Lab/Test Results: Laboratory Tests Range/Units 07/30/22 10:25 WBC (4.4-10.8) 10^3/uL 13.96 H RBC (4.36-5.78) 10^6/uL 4.80 Hgb (13.5-17.5) g/dL 15.1 Hct (40.0-50.0) % 46.1 MCV (80-95) fL 96 H MCH (27.0-33.0) pg 31.5 MCHC (32.0-36.0) % 32.8 RDW (11.8-14.1) % 13.8 Plt Count (130-400) 10^3/uL 196 MPV (8.0-11.0) fL 7.9 L Immature Gran % 0.7 Neutrophils % 70.5 Lymphocytes % 19.2 Monocytes % 7.5 Eosinophils % 1.9 Basophils % 0.2 Nucleated RBC % (0.0-0.3) % 0.0 Absolute Neutrophils (1.2-6.7) 10^3/uL 9.84 H Absolute Lymphocytes (1.2-3.4) 10^3/uL 2.68 Absolute Monocytes (0.1-0.8) 10^3/uL 1.05 H Absolute Eosinophils (0.0-0.7) 10^3/uL 0.27 Absolute Basophils (0.0-0.2) 10^3/uL 0.03
[2022-07-30 10:55] LABS: PTT Activated 24.1 sec (21.5-31.9); Prothrombin Time 9.9 sec (9.3-11.0)
[2022-07-30 11:04] LABS: ALT 25 U/L (16-63); AST 20 U/L (15-37); Albumin 2.9 g/dL (3.4-5.0); Alkaline Phosphatase 75 U/L (46-116); Anion Gap 4.1 mmol/L (3-11); BUN 16 mg/dL (7-18); Bilirubin, Total 0.7 mg/dL (0.2-1.0); CO2 32.9 mmol/L (21.0-32.0); CREATININE 1.3 mg/dL (0.70-1.30); Calcium 8.9 mg/dL (8.5-10.1); Chloride 102 mmol/L (98-107); Estimated GFR 64.07 (mL/min/1.73m2); Glucose 92 mg/dL (74-106); Magnesium 2.1 mg/dL (1.8-2.4); NT-proBNP 26 pg/mL (<300); Potassium 3.2 mmol/L (3.5-5.1); Sodium 139 mmol/L (136-145); Total Protein 6.7 g/dL (6.4-8.2); Troponin I < 50 ng/L (<or=60)
[2022-07-30 11:13] LABS: D-Dimer 1869 ng/mlFEU (<500)
--- NOTE | 2022-07-30 11:15 | DI.CT_ITS ---
Exam(s) CT CHEST PE CTA EXAM: CT CHEST PE CTA CLINICAL HISTORY: Shortness of breath, elevated D-dimer. TECHNIQUE: Imaging Protocol: Axial CT angiography was performed with multi-slice acquisition and mu lti-planar reconstructions as well as axial, coronal and sagittal MIP reconstructions. CONTRAST MATERIAL: Intravenous: Omnipaque 350 Contrast volume:100 ml COMPARISON: CR XR PORTABLE CHEST AP from 05/12/[address] CHEST PE CTA from 05/12/[address] CHEST PE CTA from 05/23/[address] CHEST WO from 06/17/2022 FINDINGS: Pulmonary Arteries: No evidence of filling defect to suggest pulmonary emboli. Tracheobronchial tree: Patent where visualized. Mediastinum and Divya: No dominant adenopathy or fluid collection. Pulmonary parenchyma: Limited evaluation due due to expiratory changes and respiratory motion. Bilat eral infiltrates upper and lower lobe findings appear worse compared with prior. This could in part be secondary due to differences in inspiration. Pleura: No effusion or pneumothorax. Heart: The heart is not dilated. No coronary artery calcifications are seen. Aorta: Thoracic aorta non-dilated. No aneurysm. No dissection. Upper abdomen: Unremarkable. Bones: Stable midthoracic compression fracture. Tubes, Catheters, and Lines: None IMPRESSION: No evidence of pulmonary embolism. Interval worsening of bilateral infiltrates RADIATION DOSE DELIVERED: 534.77mGy.cm Total DLP DATA REPOSITORY: All CT scans at this facility are submitted to the National Radiology Data Registry (NRDR) Dose Index Registry (DIR) with the [employer] (ACR). RADIATION OPTIMIZATION: All CT scans at this facility use at least one of these dose optimization te chniques: automated exposure control; mA and/or kV adjustment per patient size (includes targeted exa ms where dose is matched to clinical indication); or iterative reconstruction.
[2022-07-30] MEDS: Potassium Chloride 20 MEQ TABCR 40 MEQ PO (11:28)
[2022-07-30] MEDS: Omnipaque 350 MG/ML 500 ML BTL-Imaging package 100 ML IJ (11:56)
[2022-07-30] MEDS: Normal Saline - Diluent 50 ML VIAL IJ (11:57)
--- NOTE | 2022-07-30 13:30 | DI.US_ITS ---
APPROVED REPORT EXAM: Comprehensive 2D, Doppler, and color-flow Echocardiogram Patient Location: ER Room/Bed: 7 Intellectual Property Lawyer: Estelle Rene RDCS (AE) Indications: Dyspne Other Information Study Quality: Fair. Technically limited study due to body habitus exam done bedside er. Conclusion Normal left ventricular wall thickness and chamber size. Estimated ejection fraction is 55 to 60%. Wall motion is normal Normal right ventricular size and systolic function The atria are normal in size There is no structural or hemodynamically significant valvular disease Estimated right ventricular systolic pressure is 33 mmHg Wall motion Left Ventricle The left ventricle is normal size. The overall left ventricular systolic function appears normal. The re is normal left ventricular wall thickness. There is normal LV segmental wall motion. LVEF is 55-6 0%. Right Ventricle Right ventricle is grossly normal in size. Right ventricular systolic function is grossly normal. Atria The left atrium size is normal. The right atrium size is normal. Aortic Valve The aortic valve is normal in structure. Aortic valve is trileaflet. There is no aortic valvular sten osis. No aortic regurgitation is present. Mitral Valve The mitral valve is normal in structure. No evidence of mitral valve stenosis. Trace to mild mitral r egurgitation. Tricuspid Valve The tricuspid valve is normal in structure. There is no tricuspid valve stenosis. Trace tricuspid reg urgitation. Pulmonic Valve The pulmonary valve is normal in structure. There is no pulmonic valvular stenosis. There is no pulmo aliza valvular regurgitation. Great Vessels The aortic root is normal in size. The ascending aorta is normal in size. The IVC was not visualized. Pericardium Technically limited subcostal imaging 2D Dimensions IVSD d PLAX 0.90 cm M: 0.6-1.2 LV Vol A2C d MOD 98.5 mL LVPW d PLAX 0.92 cm M: 0.6 - 1.2 LV Vol A4C d MOD 115.6 mL LVID d PLAX 4.77 cm M: 4.2 - 5.8 LA vol/ BSA A2C s A-L 22.2 mL/m2 LVDs 3.40 cm M: 2.5 - 4.0 LA vol/ BSA A4C s A-L 19.6 mL/m2 Ao Root d 2.84 cm M: 3.1 - 3.7 LA Vol/ BSA Biplane s A-L 21.1 mL/m2 Ao Asc Diam d 2.85 cm M: 2.6 - 3.4 LA Area A4C s MOD 15.35 cm2 LV EF Teichholz 54.1 % LA Area A2C s MOD 16.09 cm2 LVEF (Gasca's) 56.34 % M: 52 - 72 LV EF A4C MOD 55.8 % LV Volume 81.54 mL M: 62 - 150 LV EF A2C MOD 56.4 % LV Volume Index 41.60 mL/m2 M: 34 - 74 LV EF Biplane MOD 56.3 % LV Vol Biplane MOD 108.0 mL SV 60.82 mL FS 27.95 % SV Index 31.06 mL/m2 M-Mode TAPSE 1.52 cm (M/F) >1.7 LV Diastology MV E' medial 0.088 (>0.07 m/s) E/A Ratio 1.0 LV E/e MED 8.90 (<14) MV E Vmax 0.78 (0.4-1.3 m/s) MV E' lateral 0.121 (>0.1 m/s) MV A Vmax 0.75 (0.4-1.3 m/s) LV E/e LAT 6.50 (<14) MV E/A Ratio 1.03 MV E/E' medial 8.91 MV E/E' lateral 6.50 Aortic Valve LVOT Area 3.25 cm2 AoV Area Vmax 2.26 cm2 LVOT Vmax 1.10 m/s AoV Area/ BSA (Vmax) 1.16 cm2/m2 LVOT Mean Yung. 0.70 m/s MALCOLM Mean Yung. 2.07 cm2 LVOT Peak Grad 4.8 mmHg MALCOLM Mean Yung. Index 1.06 cm2/m2 LVOT Mean Grad 2.3 mmHg LVOT VTI 0.183 m LVOT Diam s 2.00 cm AoV Vmax 1.57 m/s Velocity Ratio 0.70 AoV Mean Yung. 1.10 m/s AoV Peak Grad 9.9 mmHg LVOT SV 59.45 mL AoV Mean Grad 5.6 mmHg AoV VTI 0.245 m AoV Area VTI 2.42 cm2 AoV Area/ BSA (VTI) 1.24 cm/m2 Mitral Valve MV DT 207 (160-240 msec) MV PHT 60 msec MV Area PHT 3.66 cm2 MV VTI 0.198 m MV Area VTI 3.00 (4.0-6.0 cm2) Pulmonary Valve PV Vmax 1.37 (0.5-1.5 m/s) RVOT Peak Gr. 3.38 mmHg PV Peak Grad 7.5 mmHg RVOT Mean Gr. 1.90 mmHg PV Mean Grad 4.4 mmHg RVOT VTI 0.180 m PV VTI 0.206 m RVOT Vmax 0.92 m/s Tricuspid Valve TR Peak Grad 30.5 mmHg TR Vmax 2.76 m/s
[2022-07-30 14:15] LABS: COVID-19 PCR Negative (Negative); Influenza A PCR Negative (Negative); Influenza B PCR Negative (Negative); RSV PCR Negative (Negative)
[2022-07-30 14:18] LABS: Source Nasopharynx
[2022-07-30] MEDS: Furosemide 20 MG/2 ML VIAL IVP (14:27)
[2022-07-30 16:28] LABS: Procalcitonin < 0.1 ng/mL
[2022-07-30] MEDS: Enoxaparin 40 MG/0.4 ML SYR SC (18:29)
--- NOTE | 2022-07-30 18:32 | HPE_ITS ---
Date of service: 07/30/22 Time of Service: 18:32 Assessment and Plan Assessment and plan (1) Infiltrate of lung present on computed tomography: Status: Acute Assessment and plan: I am concerned that these are worsening and that the patient, who has been on high dose steroids. He confirms he is on PJP prophylaxis. He describes purulent sputum. He has been taking mucinex DM which perhaps was not permitting him to expectorate easily. I am also not sure about humidification on his home oxygen, which may have made it difficult for him to clear his sputum. Will trial humidified heated high flow, high dose mucinex, cefepime. Obtain sputum culture and pneumonia studies. I believe he would benefit from a bronchoscopy which is not currently available at our facility (our cardio clinician is not in house until 08/03/22 and the patient might be considered too high risk of a procedure for our facility regardless). I will reach out to [facility] and see if they would consider taking the patient as a [id number] transfer for a bronchoscopy. Meanwhile, I will follow [facility] recommendations and treat the patient with high dose steroids. I do not believe that this is a fluid issue with the patient's pro-BNP being low. Will provide scheduled + prn nebs, continue PJP ppx, substitute tiotropium + olodaterol with symbicort + spiriva. (2) Respiratory failure with hypoxia: Status: Acute Assessment and plan: As above (3) Organizing pneumonia: Status: Acute Assessment and plan: As above (4) COVID-19 long hauler manifesting chronic dyspnea: Status: Acute Assessment and plan: As above (5) Edema of right ankle: Status: Acute Assessment and plan: Obtain a venous doppler RLE (6) DVT prophylaxis: Status: Acute Assessment and plan: SC enoxaparin (7) Discharge planning issues: Status: Acute Assessment and plan: Full code History of Present Illness History of Present Illness Chief Complaint: Worsening shortness of breath Narrative: Mr Ospina is a 56 year old male with PMHx of chronic hypoxic respiratory failure post COVID-19 in 05/07, on 5L of O2 by NE at baseline as well as on prednisone 40 mg PO daily and bactrim for PJP prophylaxis, as well as h/o organizing pneumonia, suspected conventional bacterial pneumonia that he just completed levofloxacin for yesterday, Obesity with BMI of 30 kg/m2, who presented to [facility] ED today c/o worsening shortness of breath x 3 weeks, especially so this morning. The patient admits to not sleeping with his oxygen on for the last 4-5 days because he is usually more comfortable in bed without it, but this morning he could not get up from the bed or talk when he woke up. He endorses green hard sputum productive, denies fevers. He also reports RLE/R ankle swelling in the last few days, not normal for him. He remains on 5 L of O2 by NE, but is very symptomatic of his shortness of breath/dyspnea on exertion/tachypnea. His d- dimer was elevated, and he underwent a CTA of the chest which showed no evidence of PE but did reveal an interval worsening of bilateral infiltrates. His procalcitonin was negative. [facility] pulmonology, who follows him, was consulted and recommended high dose steroids (either solumedrol 125 mg daily or 60 mg BID). The role for antibiotics was unclear. There were no beds available at [facility] for inpatient transfer and no ability to do bronchoscopy until next week. [facility] and [facility] were also at capacity. We do not have pulmonology in house until next week. Hospitalist admission was requested. Review of Systems All systems reviewed & are unremarkable except as noted in HPI and below PFSH All Active Problems (Updated 07/30/22 @ 19:19 by Kathia Peterson MD) Edema of right ankle (Acute) Discharge planning issues (Acute) DVT prophylaxis (Acute) Infiltrate of lung present on computed tomography (Acute) Dyspnea (Acute) COVID-19 long hauler manifesting chronic dyspnea (Acute) Respiratory failure with hypoxia (Acute) Organizing pneumonia (Acute) COVID-19 (Acute) Onset-05/03/22 Obesity (BMI 30.0-34.9) (Acute) Sprain of left thumb (Acute) Surgical History (Updated 07/30/22 @ 19:15 by Kathia Peterson MD) Colonoscopy - IV Sedation (10/05/16) H/O right wrist surgery x2 Family History Mother , 65 No problems noted. Father , 81 No problems noted. Sister No problems noted. Brother No problems noted. Brother , 53 No problems noted. Brother No problems noted. Maternal Grandfather No problems noted. Paternal Grandfather , 77 No problems noted. Maternal Grandmother No problems noted. Paternal Grandmother , 91 No problems noted. Son No problems noted. Son No problems noted. Daughter No problems noted. Social History (Updated 07/30/22 @ 19:16 by Kathia Peterson MD) Smoking/Tobacco Use Status: Never Second Hand Exposure: Yes Smoking risk assessment performed?: Yes Alcohol Intake: never Drug use: Rarely Substance use type: marijuana Details: The patient takes a teaspoon of CBD/THC oil at night to help him sleep Caregiver/Support person: No Household members: children Housing: house Communication Needs: None Do you need help understanding health information?: Never current occupation: DIRECTOR OF DISTRICT OFFICE Pets and animals: Yes Pets and animals: cat(s) Sexually active: No Do you think of yourself as: straight/heterosexual Current gender identity: male What is your relationship status?: How often do you talk on the phone with friends or family?: three or more times per week How often do you get together with friends or relatives?: three or more times per week How often do you attend temple or yazdanism services?: 1-3 times per year Do you belong to any clubs or organized social groups?: no Panel score (0-1 are the most socially isolated patients): 1 What type of physical activity do you participate in: other Details: Work Duration: 15-30 minutes/day Frequency: 5-6 times per week Francie/Zoroastrianism: Evangelical Special francie needs: No Seatbelt use: sometimes Helmet use: Yes Helmet use: always Drive intox or ride w/intox taxi driver: No Do you feel safe at home: Yes Do you feel safe in your relationship?: Yes Meds Allergies and Home Medications Allergies Allergy/AdvReac Type Severity Reaction Status Date / Time bee venom protein (honey bee) Allergy Unknown Verified 07/30/22 10:44 Home Medications Medication Instructions Recorded Confirmed Type sulfamethoxazole 800 1 tab PO DAILY #60 tabs 05/29/22 07/30/22 Rx mg-trimethoprim 160 mg tablet (Bactrim DS) ipratropium 20 mcg-albuterol 100 See Rx Instructions inhalation QID 06/09/22 07/30/22 Rx mcg/actuation mist for inhalation PRN shortness of breath or wheezing #4 grams benzonatate 200 mg capsule 200 mg PO BID-TID PRN 07/15/22 07/30/22 History umeclidinium 62.5 mcg-vilanterol 1 inh inhalation DAILY 07/15/22 07/30/22 History 25 mcg/actuation powdr for inhalation (Anoro Ellipta) dextromethorphan-guaifenesin 30 1 tab PO BID 07/30/22 07/30/22 History mg-600 mg tablet extended [id number] hr (Mucinex DM) prednisone 20 mg tablet 40 mg PO DAILY 07/30/22 07/30/22 History Exam Narrative Exam Narrative: General: Pleasant tachypneic middle-aged male who is A&Ox3, quite talkative but does have to pause to breathe after 4-5 words, on 5L of O2 by NC Neurological: A&Ox3, no focal deficits Psychiatric: Appropriate speech pattern/content Skin: Visible skin intact HEENT: Atraumatic, normocephalic, EOMI, dry MM, clear oropharynx, no submandibular or cervical lymphadenopathy, no goiter or JVD Cardiovascular: RRR, no m/r/g Lungs: Diminished breath sounds B. Gastrointestinal: soft, nontender, nondistended Genitourinary: deferred Extremities: +1 edema to ankle on RLE, no edema LLE, trace pedal pulses B, no c/c Results Imaging Additional studies: CTA chest: No evidence of pulmonary embolism. Interval worsening of bilateral infiltrates Echo: Normal left ventricular wall thickness and chamber size.? Estimated ejection fraction is 55 to 60%.? Wall motion is normal Normal right ventricular size and systolic function The atria are normal in size There is no structural or hemodynamically significant valvular disease Estimated right ventricular systolic pressure is 33 mmHg Labs 07/30/22 10:25 07/30/22 10:25 Labs: Laboratory Results - last 24 hr 07/30/22 07/30/22 07/30/22 10:25 10:25 10:25 WBC 13.96 H RBC 4.80 Hgb 15.1 Hct 46.1 MCV 96 H MCH 31.5 MCHC 32.8 RDW 13.8 Plt Count 196 MPV 7.9 L Immature Gran % 0.7 Neutrophils % 70.5 Lymphocytes % 19.2 Monocytes % 7.5 Eosinophils % 1.9 Basophils % 0.2 Nucleated RBC % 0.0 Absolute Neutrophils 9.84 H Absolute Lymphocytes 2.68 Absolute Monocytes 1.05 H Absolute Eosinophils 0.27 Absolute Basophils 0.03 PT 9.9 INR 1.0 APTT 24.1 D-Dimer 1869 H Sodium 139 Potassium 3.2 L Chloride 102 Carbon Dioxide 32.9 H Anion Gap 4.1 BUN 16 Creatinine 1.3 Est GFR (CKD-EPI 2020) 64.07 Glucose 92 Calcium 8.9 Magnesium 2.1 Total Bilirubin 0.7 AST 20 ALT 25 Alkaline Phosphatase 75 Troponin I < 50 NT-Pro-B Natriuret Pep 26 Total Protein 6.7 Albumin 2.9 L Procalcitonin COVID-19 Source SARS-CoV-2 (PCR) Influenza Type A (PCR) Influenza Type B (PCR) RSV (PCR) 07/30/22 07/30/22 10:25 13:30 WBC RBC Hgb Hct MCV MCH MCHC RDW Plt Count MPV Immature Gran % Neutrophils % Lymphocytes % Monocytes % Eosinophils % Basophils % Nucleated RBC % Absolute Neutrophils Absolute Lymphocytes Absolute Monocytes Absolute Eosinophils Absolute Basophils PT INR APTT D-Dimer Sodium Potassium Chloride Carbon Dioxide Anion Gap BUN Creatinine Est GFR (CKD-EPI 2020) Glucose Calcium Magnesium Total Bilirubin AST ALT Alkaline Phosphatase Troponin I NT-Pro-B Natriuret Pep Total Protein Albumin Procalcitonin < 0.1 COVID-19 Source Nasopharynx SARS-CoV-2 (PCR) Negative Influenza Type A (PCR) Negative Influenza Type B (PCR) Negative RSV (PCR) Negative Last Vital Signs Temp 36.7 C 07/30/22 17:30 Pulse 90 07/30/22 17:30 Resp 22 07/30/22 17:30 BP 108/73 07/30/22 17:30 Pulse Ox 95 07/30/22 17:30 Time Spent Time spent with Patient: 55-74 minutes Time was spent: preparing to see the patient(eg.review tests), obtaining and/or reviewing separately otained hiistory, ordering medications,tests, procedures, referring, communicating with other health personal care attendant, indepentently interpreting results, counseling the patient and care coordination
[2022-07-30] MEDS: Albuterol/Ipratropium 3 ML UPD VIAL UPD ×2 (18:38→23:55)
[2022-07-30] MEDS: Normal Saline Flush 10 ML SYR IVP ×2 (19:29→20:35)
[2022-07-30] MEDS: methylPREDNISolone SUCC 125 MG VIAL 60 MG IVP (19:29)
[2022-07-30] MEDS: Benzonatate 200 MG CAP PO (19:29)
[2022-07-30] MEDS: guaiFENesin 600 MG TABCR 1200 MG PO (19:29)
[2022-07-30] MEDS: CEFEPIME 2 GM in Normal Saline 100 ML IVPB (20:29)
[2022-07-31] VITALS (21 sets, daily range): BP systolic 90–113; BP diastolic 54–69; PULSE 65–105; RESP 1–26; TEMP 31–36.8; O2SAT 92–96
--- NOTE | 2022-07-31 | DI.US_ITS ---
Exam(s) US LOWER EXTREMITY VENOUS RT EXAM: US LOWER EXTREMITY VENOUS RT CLINICAL HISTORY: RLE edema post COVID-19 TECHNIQUE: Right lower extremity venous ultrasound performed using grayscale, color-flow, and spectr al Doppler analysis. COMPARISON: No exams were available for comparison FINDINGS: The right common femoral, greater saphenous, per fundal and femoral veins demonstrate normal compress ibility, augmentation, and color Doppler. There is hypoechoic occlusive thrombus seen in the poplitea l vein, posterior tibialis veins and peroneal veins. The saphenofemoral junction is unremarkable. T here is no evidence of a Weaver cyst. The soft tissues are unremarkable. IMPRESSION: 1. Hypoechoic occlusive thrombus seen in the right popliteal, posterior tibialis and peroneal veins. 2. Findings were discussed with Dr. Peterson at 11:11 a.m. on 07/31/2022. DATA REPOSITORY:
[2022-07-31 02:27] LABS: Adenovirus DNA Result Negative (Negative); Metapneumovirus RNA Result Negative (Negative); Parainfluenza Type1 RNA Result Negative (Negative); Parainfluenza Type2 RNA Result Negative (Negative); Parainfluenza Type3 RNA Result Negative (Negative); Parainfluenza Type4 RNA Result Negative (Negative); Rhinovirus RNA Result Negative (Negative)
[2022-07-31] MEDS: CEFEPIME 2 GM in Normal Saline 100 ML IVPB ×3 (03:51→20:09)
[2022-07-31] MEDS: Normal Saline Flush 10 ML SYR IVP ×5 (03:51→20:09)
[2022-07-31] MEDS: Albuterol/Ipratropium 3 ML UPD VIAL UPD ×4 (05:55→23:27)
[2022-07-31 07:18] LABS: Abs Immature Grans 0.06 10^3/uL (0.0-0.06); Absolute Lymphocyte Count 0.84 10^3/uL (1.2-3.4); HCT 40.1 % (40.0-50.0); HGB 13.4 g/dL (13.5-17.5); Immature Grans % 0.6; Lymphocytes % 7.7; MCHC 33.4 % (32.0-36.0); MCV 93 fL (80-95); MPV 8.5 fL (8.0-11.0); Neutrophils % 86.7; Platelet Count 214 10^3/uL (130-400); RBC 4.32 10^6/uL (4.36-5.78); RDW 13.6 % (11.8-14.1); RDW-SD 46.5 fL
[2022-07-31 07:32] LABS: Absolute Monocyte Count 0.55 10^3/uL (0.1-0.8); Absolute Neutrophil Count 9.45 10^3/uL (1.2-6.7)
[2022-07-31 07:35] LABS: Anion Gap 6.5 mmol/L (3-11); BUN 27 mg/dL (7-18); C-Reactive Protein 6.06 mg/dL (0.0-0.3); CO2 28.5 mmol/L (21.0-32.0); Calcium 9.2 mg/dL (8.5-10.1); Chloride 103 mmol/L (98-107); Estimated GFR 87.78 (mL/min/1.73m2); Glucose 136 mg/dL (74-106); Magnesium 2.3 mg/dL (1.8-2.4); Potassium 4.2 mmol/L (3.5-5.1); Sodium 138 mmol/L (136-145)
[2022-07-31] MEDS: Pantoprazole 40 MG TABCR PO (08:24)
[2022-07-31] MEDS: Sulfameth/Trimeth DS TAB 1 TAB PO (08:24)
[2022-07-31] MEDS: Benzonatate 200 MG CAP PO ×3 (08:24→20:10)
[2022-07-31] MEDS: guaiFENesin 600 MG TABCR 1200 MG PO ×2 (08:24→20:10)
[2022-07-31] MEDS: methylPREDNISolone SUCC 125 MG VIAL 60 MG IVP ×2 (08:24→20:10)
[2022-07-31] MEDS: Budesonide/Formoterol 160/4.5 6 GM 60 PUFF INH IH ×2 (08:52→19:19)
[2022-07-31] MEDS: Tiotropium Bromide-Respimat 10 PUFF INH 2 PUFF IH (08:53)
--- NOTE | 2022-07-31 11:52 | TELEP.MEDR_ITS ---
Date of service: 07/31/22 Time of Service: 11:54 Telepharmacy Home Med Rec Allergies Allergies: bee venom protein (honey bee) Allergy (Unknown, Verified 07/30/22 10:44) Interview Person Interviewed: * patient Quality Quality of Interview/Accuracy of Medication List: Excellent Sources Sources used to compile medication list: [facility] Medication List and Patient List Changes made to Home Medication List: ADDITIONS: * Probiotic 1 capsule PO daily * Zithromax 500mg PO daily x 3 days (has not started) DELETIONS: * Benzonatate CHANGES: * none Recommended Changes Attestation: The home medication list is now updated to the best of my knowledge and is ready to be reconciled by the provider. Please contact the TelePharmacy Medication Reconciliation Pharmacist at for any questions.
--- NOTE | 2022-07-31 11:52 | TELEP.MEDREC ---
Date of service: 07/31/22 Time of Service: 11:54 Telepharmacy Home Med Rec Allergies Allergies: bee venom protein (honey bee) Allergy (Unknown, Verified 07/30/22 10:44) Interview Person Interviewed: patient Quality Quality of Interview/Accuracy of Medication List: Excellent Sources Sources used to compile medication list: [facility] Medication List and Patient List Changes made to Home Medication List: ADDITIONS: Probiotic 1 capsule PO daily Zithromax 500mg PO daily x 3 days (has not started) DELETIONS: Benzonatate CHANGES: none Recommended Changes Attestation: The home medication list is now updated to the best of my knowledge and is ready to be reconciled by the provider. Please contact the TelePharmacy Medication Reconciliation Pharmacist at for any questions.
[2022-07-31] MEDS: Enoxaparin 100 MG/ML SYR 90 MG SC ×2 (12:09→21:40)
--- NOTE | 2022-07-31 13:21 | PGE_ITS ---
Date of Service Date of service: 07/31/22 Time of Service: 13:21 Assessment and Plan Assessment and plan (1) Infiltrate of lung present on computed tomography: Status: Acute Assessment and plan: Discussed with [facility] pulmonology. Will expand abx empirically to vancomycin/cefepime. Continue high dose steroids. Repeat PARAM (previously positive - autoimmune process?), check fungitell, blasto/histo urine antigens. Await expanded respiratory panel. Continue hmidified heated high flow O2. Add saline enbs. Await sputum culture and legionella/strep/mycoplasma studies. If not improved over the next couple of days, would benefit from bronchoscopy. Hospitalists are to reach out to Dr Balderrama of [facility] pulmonology on Wednesday to discuss patient's progress. Continue scheduled + prn nebs, continue PJP ppx, substitute tiotropium + olodaterol with symbicort + spiriva. There is a concern that a small PE would not have been picked up on CTA but could be triggering respiratory decompensation, in which case a VQ scan would be more useful. Ultimately, if the patient does not respond to steroids/abx, his prognosis is guarded. A transfer to a tertiary care facility would need to be considered as well as a possible lung transplant. (2) Respiratory failure with hypoxia: Status: Acute Assessment and plan: As above (3) Organizing pneumonia: Status: Acute Assessment and plan: As above (4) Right leg DVT: Status: Acute Assessment and plan: Started on therapeutic lovenox. Would not transition to a DOAC until plans re bronchoscopy are solidified. (5) COVID-19 long hauler manifesting chronic dyspnea: Status: Acute Assessment and plan: As above (6) Discharge planning issues: Status: Acute Assessment and plan: Full code Continues to require hospitalization. Subjective Subjective Interval history since last seen: Mr Ospina states that he is not meaningfully better. He got very winded when he went to the bathroom on 6L of O2 and had to have a wheelchair taking him back. When on humidified heated high flow at rest, he is requiring 30L 35% FIO2 to saturate in the 90s. He did cough up a large amount of green sputum this morning. He now thinks that the leg swelling in his right leg has been going on for a couple of months. (He does have a DVT there as we found out). He denies dizziness, CP, nausea. Case was discussed with Dr Balderrama of pulmonology at [facility] who made the following recommendations: -expand antibiotics by adding vanco and testing MRSA nares -recheck PARAM -checking beta-glucan/histo/blasto urine antigens -adding on saline nebs and ensuring they don't cause bronchospasm as he does have bronchiectasis. -if not better in a few days (we made a preliminary plan for next contact on Wednesday), a bronchoscopy should be pursued. -VQ scan could be considered as the patient does have a DVT. His negative CTA does not rule out small distal PEs. Exam Narrative Exam Narrative: General: Pleasant tachypneic middle-aged male who is A&Ox3, on humidified heated high flow NC (30 L 35% FiO2), looks a little bit less d yspneic. HEENT: EOMI, MMM Cardiovascular: RRR, no m/r/g Lungs: Diminished breath sounds B. Gastrointestinal: soft, nontender, nondistended Extremities: +1 edema to ankle on RLE, no edema LLE, trace pedal pulses B, no c/c Objective Last Vital Signs Temp 36.2 C L 07/31/22 11:32 Pulse 105 H 07/31/22 12:42 Resp 24 07/31/22 12:42 BP 113/67 07/31/22 11:32 Pulse Ox 93 07/31/22 12:42 Laboratory Results - last 24 hr 07/30/22 07/30/22 07/30/22 10:25 13:30 13:30 WBC RBC Hgb Hct MCV MCH MCHC RDW Plt Count MPV Immature Gran % Neutrophils % Lymphocytes % Monocytes % Eosinophils % Basophils % Nucleated RBC % Absolute Neutrophils Absolute Lymphocytes Absolute Monocytes Absolute Eosinophils Absolute Basophils Sodium Potassium Chloride Carbon Dioxide Anion Gap BUN Creatinine Est GFR (CKD-EPI 2020) Glucose Calcium Magnesium C-Reactive Protein Procalcitonin < 0.1 Adenovirus DNA Negative COVID-19 Source Nasopharynx SARS-CoV-2 (PCR) Negative Human Metapneumovir RNA Negative Influenza Type A (PCR) Negative Influenza Type B (PCR) Negative Parainfluenza 1 (PCR) Negative Parainfluenza 2 (PCR) Negative Parainfluenza 3 (PCR) Negative Parainfluenza 4 (PCR) Negative RSV (PCR) Negative Resp Viral Spec Desc Not Applicable Rhinovirus (PCR) Negative 07/31/22 07/31/22 06:10 06:10 WBC 10.90 H RBC 4.32 L Hgb 13.4 L Hct 40.1 MCV 93 MCH 31.0 MCHC 33.4 RDW 13.6 Plt Count 214 MPV 8.5 Immature Gran % 0.6 Neutrophils % 86.7 Lymphocytes % 7.7 Monocytes % 5.0 Eosinophils % 0.0 Basophils % 0.0 Nucleated RBC % 0.0 Absolute Neutrophils 9.45 H Absolute Lymphocytes 0.84 L Absolute Monocytes 0.55 Absolute Eosinophils 0.00 Absolute Basophils 0.00 Sodium 138 Potassium 4.2 D Chloride 103 Carbon Dioxide 28.5 Anion Gap 6.5 BUN 27 H Creatinine 1.0 Est GFR (CKD-EPI 2020) 87.78 Glucose 136 H Calcium 9.2 Magnesium 2.3 C-Reactive Protein 6.06 H Procalcitonin Adenovirus DNA COVID-19 Source SARS-CoV-2 (PCR) Human Metapneumovir RNA Influenza Type A (PCR) Influenza Type B (PCR) Parainfluenza 1 (PCR) Parainfluenza 2 (PCR) Parainfluenza 3 (PCR) Parainfluenza 4 (PCR) RSV (PCR) Resp Viral Spec Desc Rhinovirus (PCR) Objective Narrative Objective Narrative: Venous doppler RLE: 1. Hypoechoic occlusive thrombus seen in the right popliteal, posterior tibialis and peroneal veins. Time Spent with Patient Time Spent with Patient: 35-49 minutes Time was spent: preparing to see the patient(eg.review tests), obtaining and/or reviewing separately otained hiistory, ordering medications,tests, procedures, referring, communicating with other health career law clerk, indepentently interpreting results, counseling the patient and care coordination
--- NOTE | 2022-07-31 15:15 | PDOC.CMIN ---
- If Service Date Differs Date of service: 07/31/22 Time of Service: 15:15 Care Management Initial Assess REASON FOR HOSPITALIZATION:: Organizing pneumonia, pulmonary fibrosis PAST MEDICAL HISTORY/PAST SURGICAL HISTORY:: All Active Problems. Edema of right ankle (Acute). Discharge planning issues (Acute). DVT prophylaxis (Acute). Infiltrate of lung present on computed tomography (Acute). Dyspnea (Acute). COVID-19 long hauler manifesting chronic dyspnea (Acute). Respiratory failure with hypoxia (Acute). Organizing pneumonia (Acute). COVID-19 (Acute). Onset-05/03/22. Obesity (BMI 30.0-34.9) (Acute). Sprain of left thumb (Acute). Surgical History. Colonoscopy - IV Sedation (10/05/16). H/O right wrist surgery. x2 PREVIOUS FUNCTIONAL STATUS/SOCIAL/FAMILY SUPPORTS:: Shawn lives in [place]. He reported that he has several family members who live in close proximity to him. He is independent at baseline, but has been out of work since mid April 2022 due to long haul Covid. CURRENT FUNCTIONAL STATUS:: Shawn was sitting up in bed when CM met with him. His ex was in the room visiting, and Shawn stated that they are still friends. Shawn talked about his experience having Covid in April, and how he is still oxygen dependent, making him unable to work. He remains independent with ADL's, although he struggles, as he can't walk far without becoming short of breath. CM will continue to follow. ADVANCE DIRECTIVES:: Not on file. Has patient been provided with info about the portal/API?: Yes Did the patient sign up for the portal?: No CODE STATUS:: Full Code INSURANCE COVERAGE / FINANCIAL ISSUES:: [employer] CURRENT HOME/COMMUNITY SERVICES/EQUIPMENT:: Home O2 PRIMARY CARE PHYSICIAN:: Nathaniel Gallagher POTENTIAL DISCHARGE NEEDS:: [place] [facility]. PATIENT/FAMILY EDUCATION NEEDS:: Review discharge instructions and limitations, discussion of self care needs including ask me three. ANTICIPATED BARRIERS TO DISCHARGE:: None identified TRANSPORTATION:: Depends on disposition. PLAN:: Shawn may [place] [facility] [place], and will transport via EMS vs return home once medically cleared. He does not feel that services are indicated at this time, as he has support from family and friends. He will follow up with his PCP and discharge plan of care. CM will continue to follow.
[2022-07-31] MEDS: VANCOMYCIN/WATER (PEG) 1.25 GM/250 ML BAG IVPB (16:06)
[2022-07-31] MEDS: Sodium Chloride 0.9% for Inhalation 3 ML VIAL UPD ×2 (18:00→23:28)
[2022-07-31] MEDS: Melatonin 3 MG TAB PO (21:40)
[2022-07-31 23:36] LABS: Legionella Ag Detection Urine Negative (Negative)
[2022-08-01] VITALS (13 sets, daily range): BP systolic 97–111; BP diastolic 59–72; PULSE 57–80; RESP 1–22; TEMP 31–37; O2SAT 92–95
[2022-08-01] MEDS: Normal Saline Flush 10 ML SYR IVP ×3 (01:50→20:51)
[2022-08-01] MEDS: VANCOMYCIN/WATER (PEG) 1.25 GM/250 ML BAG IVPB ×2 (01:50→13:39)
[2022-08-01] MEDS: CEFEPIME 2 GM in Normal Saline 100 ML IVPB ×3 (03:47→21:02)
[2022-08-01] MEDS: Albuterol/Ipratropium 3 ML UPD VIAL UPD ×2 (05:37→13:05)
[2022-08-01] MEDS: Sodium Chloride 0.9% for Inhalation 3 ML VIAL UPD ×2 (05:38→13:10)
[2022-08-01] MEDS: Albuterol 2.5 MG/3 ML INH SOLN VIAL UPD (06:10)
--- NOTE | 2022-08-01 06:33 | RESPIRATORY ---
RT called to patient's room for increased shortness of breath. Patient stated that after patient was given updraft he went to the bathroom and when he returned he started coughing and became short of breath. Patient described rattling in chest. Patient's lung sounds were clear in upper and middle lung carlin, but course crackles in bases bilaterally. RT observed patient's SpO2 decrease to 78% while coughing, but would return to 92% following coughing fits. Highflow was increased to 40 liters and PRN albuterol was given to patient. After albuterol patient stated that he was feeling better. Patient also stated that he would experience similar episodes of shortness of breath caused from coughing and in those instances would have to wait and try not to cough. Patient stated that he felt better and patient appeared to be comfortable. Patient remains on 40 liters, 35% FiO2 Highflow nasal cannula.
[2022-08-01 06:42] LABS: Abs Immature Grans 0.12 10^3/uL (0.0-0.06); Absolute Basophil Count 0.01 10^3/uL (0.0-0.2); Absolute Monocyte Count 0.57 10^3/uL (0.1-0.8); Basophils % 0.1; HCT 40.4 % (40.0-50.0); HGB 13.4 g/dL (13.5-17.5); Immature Grans % 0.8; Lymphocytes % 6.9; MCHC 33.2 % (32.0-36.0); MCV 94 fL (80-95); MPV 8.3 fL (8.0-11.0); Monocytes % 3.9; Neutrophils % 88.3; Platelet Count 212 10^3/uL (130-400); RBC 4.32 10^6/uL (4.36-5.78); RDW 13.4 % (11.8-14.1); RDW-SD 46.2 fL; WBC 14.58 10^3/uL (4.4-10.8)
[2022-08-01 06:45] LABS: Absolute Lymphocyte Count 1.01 10^3/uL (1.2-3.4); Absolute Neutrophil Count 12.87 10^3/uL (1.2-6.7)
[2022-08-01 07:01] LABS: Anion Gap 6.9 mmol/L (3-11); BUN 27 mg/dL (7-18); C-Reactive Protein 2.79 mg/dL (0.0-0.3); CO2 26.1 mmol/L (21.0-32.0); CREATININE 1.1 mg/dL (0.70-1.30); Chloride 104 mmol/L (98-107); Glucose 130 mg/dL (74-106); Magnesium 2.3 mg/dL (1.8-2.4); Potassium 3.9 mmol/L (3.5-5.1); Sodium 137 mmol/L (136-145)
[2022-08-01] MEDS: Budesonide/Formoterol 160/4.5 6 GM 60 PUFF INH IH ×2 (08:44→19:19)
[2022-08-01] MEDS: Tiotropium Bromide-Respimat 10 PUFF INH 2 PUFF IH (08:44)
[2022-08-01] MEDS: Pantoprazole 40 MG TABCR PO (09:09)
[2022-08-01] MEDS: methylPREDNISolone SUCC 125 MG VIAL 60 MG IVP ×2 (09:09→20:50)
[2022-08-01] MEDS: guaiFENesin 600 MG TABCR 1200 MG PO ×2 (09:09→19:15)
[2022-08-01] MEDS: Sulfameth/Trimeth DS TAB 1 TAB PO (09:09)
[2022-08-01] MEDS: Benzonatate 200 MG CAP PO ×3 (09:12→19:14)
[2022-08-01] MEDS: Enoxaparin 100 MG/ML SYR 90 MG SC ×2 (10:08→21:01)
[2022-08-01] MEDS: Normal Saline 500 ML 100 ML IV (13:39)
--- NOTE | 2022-08-01 14:07 | PGE_ITS ---
Date of Service Date of service: 08/01/22 Time of Service: 14:07 Assessment and Plan Assessment and plan (1) Organizing pneumonia: Status: Acute Assessment and plan: blood cultures 07/30: NGTD MRSA screen neg. legionella urine antigen: neg. urine strep pneumoniae antigen: pending fungitell pending histoplasmosis studies pending blastomyces studies pending respiratory viral panel negative (rhinovirus, RSV, parainfluenza, influenza A and influenza B, SARS-COV2). PARAM pending. inflammatory markers are improving: CRP 6.06>2.79 continue Cefepime; dc Vancomycin. continue high dose corticosteroids (solumedorol 60 mg iv q12h), encourage pulmonary toiletry (IS, acapella), continue aerosolized bronchodilators. Professional time spent interviewing and examining patient, discussion of goals of care with hospital team (care management, nursing and consulting professionals) was 30 minutes. (2) Respiratory failure with hypoxia: Status: Acute Assessment and plan: As above (3) Right leg DVT: Status: Acute Assessment and plan: Started on therapeutic lovenox. Would not transition to a DOAC until plans re bronchoscopy are solidified. (4) COVID-19 long hauler manifesting chronic dyspnea: Status: Acute Assessment and plan: As above (5) Discharge planning issues: Status: Acute Assessment and plan: Full code Continues to require hospitalization. Subjective Subjective Interval history since last seen: patient is feeling better. Less dyspneic at rest but still gets dyspneic w/ light activities such as walking to the bathroom. However his oxygen requirements have improved. He has been weaned off HFNC to simple NC @ 5 lpm ( he was on 4 lpm until he was up to the bathroom when they increased it to 5 lpm to alleviate his dyspnea). His cough is still productive but now is more yellow than green. He is afebrile. He remains on Vancomycin and cefepime per Dr. Peterson's discussion w/ [facility] [place] pulmonary. I reviewed his CT of his chest and he has diffuse bilateral interstitial and alveolar densities w/ some ground glass changes. Exam Narrative Exam Narrative: Shawn is sitting up in bed talking on the phone. He is not dyspneic w/ prolon ged conversations. Lungs: diffuse fine dry rales w/ more predominance at the bases; no rhonchi or wheezing Heart: RRR Abdomen: soft, obese, nontender Extremities: no calf swelling or tenderness (despite his venous US being positive for RLE popliteal and post. tibial and peroneal DVT Objective Last Vital Signs Temp 37 C 08/01/22 11:32 Pulse 74 08/01/22 11:32 Resp 22 08/01/22 11:32 BP 103/63 08/01/22 11:32 Pulse Ox 92 08/01/22 13:32 Laboratory Results - last 24 hr 07/31/22 08/01/22 08/01/22 05:54 06:12 06:12 WBC 14.58 H RBC 4.32 L Hgb 13.4 L Hct 40.4 MCV 94 MCH 31.0 MCHC 33.2 RDW 13.4 Plt Count 212 MPV 8.3 Immature Gran % 0.8 Neutrophils % 88.3 Lymphocytes % 6.9 Monocytes % 3.9 Eosinophils % 0.0 Basophils % 0.1 Nucleated RBC % 0.0 Absolute Neutrophils 12.87 H Absolute Lymphocytes 1.01 L Absolute Monocytes 0.57 Absolute Eosinophils 0.00 Absolute Basophils 0.01 Sodium 137 Potassium 3.9 Chloride 104 Carbon Dioxide 26.1 Anion Gap 6.9 BUN 27 H Creatinine 1.1 Est GFR (CKD-EPI 2020) 78.30 Glucose 130 H Calcium 9.0 Magnesium 2.3 C-Reactive Protein 2.79 H Urine Legionella Ag Negative Time Spent with Patient Time Spent with Patient: 25-34 minutes Time was spent: preparing to see the patient(eg.review tests), obtaining and/or reviewing separately otained hiistory, ordering medications,tests, procedures, indepentently interpreting results, counseling the patient and care coordination
[2022-08-01] MEDS: Melatonin 3 MG TAB PO (21:02)
[2022-08-02] VITALS (8 sets, daily range): BP systolic 108–126; BP diastolic 61–78; PULSE 64–93; RESP 4–26; TEMP 36–36.7; O2SAT 88–95
[2022-08-02] MEDS: Albuterol/Ipratropium 3 ML UPD VIAL UPD ×4 (00:59→18:06)
[2022-08-02] MEDS: Sodium Chloride 0.9% for Inhalation 3 ML VIAL UPD ×4 (01:00→18:09)
[2022-08-02] MEDS: CEFEPIME 2 GM in Normal Saline 100 ML IVPB ×3 (03:48→20:09)
[2022-08-02 06:41] LABS: Abs Immature Grans 0.11 10^3/uL (0.0-0.06); Absolute Basophil Count 0.01 10^3/uL (0.0-0.2); Absolute Eosinophil Count 0.01 10^3/uL (0.0-0.7); Absolute Lymphocyte Count 0.66 10^3/uL (1.2-3.4); Absolute Monocyte Count 0.53 10^3/uL (0.1-0.8); Basophils % 0.1; ESR 21 mm/hr (0-20); Eosinophils % 0.1; HCT 40.5 % (40.0-50.0); HGB 13.5 g/dL (13.5-17.5); Immature Grans % 0.9; Lymphocytes % 5.5; MCH 31.3 pg (27.0-33.0); MCHC 33.3 % (32.0-36.0); MCV 94 fL (80-95); MPV 8.5 fL (8.0-11.0); Monocytes % 4.4; Platelet Count 197 10^3/uL (130-400); RBC 4.31 10^6/uL (4.36-5.78); RDW 13.4 % (11.8-14.1); RDW-SD 46.7 fL; WBC 11.94 10^3/uL (4.4-10.8)
[2022-08-02 06:46] LABS: Absolute Neutrophil Count 10.63 10^3/uL (1.2-6.7)
[2022-08-02 07:00] LABS: C-Reactive Protein 1.36 mg/dL (0.0-0.3)
[2022-08-02 07:40] LABS: Procalcitonin < 0.1 ng/mL
[2022-08-02] MEDS: Normal Saline Flush 10 ML SYR IVP ×2 (08:20→12:19)
[2022-08-02] MEDS: Sulfameth/Trimeth DS TAB 1 TAB PO (08:21)
[2022-08-02] MEDS: methylPREDNISolone SUCC 125 MG VIAL 60 MG IVP ×2 (08:21→20:04)
[2022-08-02] MEDS: guaiFENesin 600 MG TABCR 1200 MG PO ×2 (08:21→20:06)
[2022-08-02] MEDS: Benzonatate 200 MG CAP PO ×3 (08:21→19:52)
[2022-08-02] MEDS: Pantoprazole 40 MG TABCR PO (08:22)
[2022-08-02] MEDS: Tiotropium Bromide-Respimat 10 PUFF INH 2 PUFF IH (08:56)
[2022-08-02] MEDS: Budesonide/Formoterol 160/4.5 6 GM 60 PUFF INH IH ×2 (08:56→19:52)
[2022-08-02] MEDS: Enoxaparin 100 MG/ML SYR 90 MG SC ×2 (10:47→21:57)
--- NOTE | 2022-08-02 15:05 | PGE_ITS ---
Date of Service Date of service: 08/02/22 Time of Service: 15:05 Assessment and Plan Assessment and plan (1) Organizing pneumonia: Status: Acute Assessment and plan: blood cultures 07/30: NGTD MRSA screen neg. legionella urine antigen: neg. urine strep pneumoniae antigen: pending fungitell pending histoplasmosis studies pending blastomyces studies pending respiratory viral panel negative (rhinovirus, RSV, parainfluenza, influenza A and influenza B, SARS-COV2). PARAM pending. inflammatory markers are improving: CRP 6.06>2.79 continue Cefepime; now off vancomycin.. continue high dose corticosteroids (solumedorol 60 mg iv q12h), encourage pulmonary toiletry (IS, acapella), continue aerosolized bronchodilators. I will ask our teacher of the deaf/hard of hearing, Dr. Torres consult and review his case tomorrow. Professional time spent interviewing and examining patient, discussion of goals of care with hospital team (care management, nursing and consulting professionals, Dr. Balderrama) was 30 minutes. The patient never received coverage for atyicals w/ doxycycline or azithromycin. However, given that he is improving w/out this and he had levaquin as outpatient, Dr. Balderrama indicated that as he is improving, she does not feel it necessary to add for atypicals however, if he plateaus or worsens, then she would recommend adding atypical coverage. (2) Respiratory failure with hypoxia: Status: Acute Assessment and plan: As above (3) Right leg DVT: Status: Acute Assessment and plan: Started on therapeutic lovenox. Would not transition to a DOAC until plans re bronchoscopy are solidified. (4) COVID-19 long hauler manifesting chronic dyspnea: Status: Acute Assessment and plan: As above (5) Discharge planning issues: Status: Acute Assessment and plan: Full code Continues to require hospitalization. Subjective Subjective Interval history since last seen: Patient is improving he is now down to 4 L/min per nasal cannula w/ SPO2 remaining 91-94%. Still gets winded with prolonged conversations or with ambulating around the room. During paroxysms of coughing he is able to produce some sputum. Unfortunately we did not get a repeat sputum sample for culturing. so far all cultures and infectious workup has been negative (BC no growth, spu viktoria NOF, MRSA screen neg., urine legionella antigen neg., rest of workup still pending including blastomyces, fungitel, TB, histoplasmosis; all respiratory virus panel has been neg. Mr Ospina has been faithful in using his acapella and IS. Exam Narrative Exam Narrative: Middle age white male, sitting up in bed; not dyspneic w/ quiet conversation but if he gets animated and talks incessantly then he will get mildly dyspneic, noted by his need to stop in mid sentence to catch his breath He is not using his accessory muscles Lungs: bilateral diffuse dry rales, more so at both bases Heart: RRR Abdomen: obese, soft, nontender, nondistended lower extremities: no edema or tenderness Objective Last Vital Signs Temp 36.4 C L 08/02/22 11:40 Pulse 88 08/02/22 12:50 Resp 22 08/02/22 11:40 BP 120/61 08/02/22 11:40 Pulse Ox 91 L 08/02/22 12:50 Laboratory Results - last 24 hr 08/02/22 08/02/22 08/02/22 06:12 06:12 06:12 WBC RBC Hgb Hct MCV MCH MCHC RDW Plt Count MPV Immature Gran % Neutrophils % Lymphocytes % Monocytes % Eosinophils % Basophils % Nucleated RBC % Absolute Neutrophils Absolute Lymphocytes Absolute Monocytes Absolute Eosinophils Absolute Basophils ESR 21 H C-Reactive Protein 1.36 H Procalcitonin < 0.1 08/02/22 06:12 WBC 11.94 H RBC 4.31 L Hgb 13.5 Hct 40.5 MCV 94 MCH 31.3 MCHC 33.3 RDW 13.4 Plt Count 197 MPV 8.5 Immature Gran % 0.9 Neutrophils % 89.0 Lymphocytes % 5.5 Monocytes % 4.4 Eosinophils % 0.1 Basophils % 0.1 Nucleated RBC % 0.0 Absolute Neutrophils 10.63 H Absolute Lymphocytes 0.66 L Absolute Monocytes 0.53 Absolute Eosinophils 0.01 Absolute Basophils 0.01 ESR C-Reactive Protein Procalcitonin Reviewed Pertinent PMH: Yes Time Spent with Patient Time Spent with Patient: 25-34 minutes Time was spent: preparing to see the patient(eg.review tests), obtaining and/or reviewing separately otained hiistory, ordering medications,tests, procedures, referring, communicating with other health health and social care teacher (Dr. Balderrama, [facility]), indepentently interpreting results, counseling the patient and care co ordination
[2022-08-02 15:48] LABS: Streptococcus Pneumoniae Ag, U Negative (Negative)
[2022-08-02] MEDS: Melatonin 3 MG TAB PO (21:57)
[2022-08-03] VITALS (8 sets, daily range): BP systolic 105–120; BP diastolic 65–75; PULSE 68–93; RESP 14–20; TEMP 35.7–36.9; O2SAT 89–95
[2022-08-03] MEDS: Albuterol/Ipratropium 3 ML UPD VIAL UPD ×3 (00:33→12:57)
[2022-08-03] MEDS: Sodium Chloride 0.9% for Inhalation 3 ML VIAL UPD ×3 (00:34→12:57)
[2022-08-03] MEDS: Normal Saline Flush 10 ML SYR IVP ×4 (04:22→19:01)
[2022-08-03] MEDS: Normal Saline 500 ML 30 ML IV (04:22)
[2022-08-03] MEDS: CEFEPIME 2 GM in Normal Saline 100 ML IVPB ×3 (04:23→19:02)
[2022-08-03] MEDS: Budesonide/Formoterol 160/4.5 6 GM 60 PUFF INH IH ×2 (07:36→19:02)
[2022-08-03] MEDS: Tiotropium Bromide-Respimat 10 PUFF INH 2 PUFF IH (07:36)
[2022-08-03] MEDS: Benzonatate 200 MG CAP PO ×3 (09:37→19:02)
[2022-08-03] MEDS: Enoxaparin 100 MG/ML SYR 90 MG SC ×2 (09:38→21:28)
--- NOTE | 2022-08-03 09:38 | W.PULMCON ---
General Date Of Service Date of service: 08/03/22 Time of Service: 09:38 Reason for Consult: Abnormal chest CT Assessment and Plan Assessment and plan (1) Infiltrate of lung present on computed tomography: Status: Acute (2) Respiratory failure with hypoxia: Status: Acute (3) Organizing pneumonia: Status: Acute Assessment and plan: This is a 56 yo with worsening pulmonary infiltrates since May (s/p COVID) who has not responded to three course of prednisone and two courses of antibiotics. He has been on steroids for months and although was on ppx for PJP, it is possible he has a fungal infection that is causing this worsening. Blasto and histo urine antigens have been collected, as has a Fungitell, all of which are pending. I will investigate the PARAM more thoroughly with more rheumatologic testing. Ultimately, I do recommend a bronchoscopy for diagnostic purposes. We discussed BAL versus BAL and transbronchial biopsies. In shared decision making we will complete a BAL but forego the biopsies due to his concern for increased complication risk and small added benefit in this case. We discussed the risk given his current oxygen needs and that he may require HFNC as well as a possible ICU observation after the bronchoscopy. He is scheduled for bronchoscopy 08/04/22 at 1200. I have reached out to Dr. Macedo (his bulk plant supervisor) at [facility] to discuss him as well as my plan moving forward. Hypoxic respiratory failure - supplemental O2 for sats >90% Abnormal chest CT - worsening, despite significant steroid courses - histo, blasto and fungitell pending - blood cultures negative - anti-DNA, aspergillus Ag, ANCA, Scl-70, SSA/SSB, anti-Sm ordered - bronchoscopy 08/04/22 at 1200 - sent a message to Dr. Macedo at [facility] pulmonary to discuss - NPO at midnight - order placed History of Present Illness Narrative: This is a 56 yo admitted for hypoxic respiratory failure and an abnromal chest CT. I saw this patient in the outpatient setting in May for long COVID symptoms. I believed he had an organizing pneumonia due to his recent COVID infection. I started him on a prolonged prednisone course. He then saw [facility] pulmonary for a second opinion and opted to continue follow up care with them. Since that time he has had 2 antibiotic courses and two more steroid courses but has not gotten better despite these. He states he did not feel improved with any of the steroid treatments. His chest CT from this admission is worse than his prior image. His oxygen requirements have also been increasing since I saw him last. He is very worried that he is not going to get better. I had previously drawn an PARAM which was significantly positive, but he did not have follow up with me and I cannot see that more rheumatologic testing was performed with [facility]. He has considerable dyspnea even at rest. He does have a cough that is somewhat productive. Review of Systems All systems reviewed & are unremarkable except as noted in HPI and below PFSH All Active Problems (Updated 07/31/22 @ 14:47 by Kathia Peterson MD) Right leg DVT (Acute) Edema of right ankle (Acute) Discharge planning issues (Acute) DVT prophylaxis (Acute) Infiltrate of lung present on computed tomography (Acute) Dyspnea (Acute) COVID-19 long hauler manifesting chronic dyspnea (Acute) Respiratory failure with hypoxia (Acute) Organizing pneumonia (Acute) COVID-19 (Acute) Onset-05/03/22 Obesity (BMI 30.0-34.9) (Acute) Sprain of left thumb (Acute) Surgical History (Updated 07/30/22 @ 19:15 by Kathia Peterson MD) Colonoscopy - IV Sedation (10/05/16) H/O right wrist surgery x2 Family History Mother , 65 No problems noted. Father , 81 No problems noted. Sister No problems noted. Brother No problems noted. Brother , 53 No problems noted. Brother No problems noted. Maternal Grandfather No problems noted. Paternal Grandfather , 77 No problems noted. Maternal Grandmother No problems noted. Paternal Grandmother , 91 No problems noted. Son No problems noted. Son No problems noted. Daughter No problems noted. 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 Pets and animals: Yes Pets and animals: cat(s) Sexually active: No Do you think of yourself as: straight/heterosexual Current gender identity: male What is your relationship status?: How often do you talk on the phone with friends or family?: three or more times per week How often do you get together with friends or relatives?: three or more times per week How often do you attend yazdanism or catholic services?: 1-3 times per year Do you belong to any clubs or organized social groups?: no Panel score (0-1 are the most socially isolated patients): 1 What type of physical activity do you participate in: other Details: Work Duration: 15-30 minutes/day Frequency: 5-6 times per week Francie/Baptism: Evangelical Special francie needs: No Seatbelt use: sometimes Helmet use: Yes Helmet use: always Drive intox or ride w/intox entry level truck driver: No Do you feel safe at home: Yes Do you feel safe in your relationship?: Yes Visit Medication and Allergies Active Medications Generic Name Dose Route Start Last Admin Trade Name Freq PRN Reason Stop Dose Admin Acetaminophen 0 mg 07/30/22 16:40 Acetaminophen 325 Mg Tab PO Q4H PRN PRN Al Hydrox/Mg Hydrox/Simethicone 30 ml 07/30/22 16:40 Mylanta Suspension 30 Ml Cup PO Q2H PRN PRN Albuterol Sulfate 2.5 mg 07/30/22 16:40 08/01/22 06:10 Albuterol 2.5 Mg/3 Ml Inh Soln Vial UPD 2.5 mg Q2H PRN PRN Administration Albuterol/Ipratropium 3 ml 07/30/22 18:00 08/03/22 06:21 Albuterol/Ipratropium 3 Ml Upd Vial UPD 3 ml Q6H DRISS Administration Benzonatate 200 mg 07/30/22 20:00 08/02/22 19:52 Benzonatate 200 Mg Cap PO 200 mg TID DRISS Administration Budesonide/Formoterol Fumarate 2 puff 07/30/22 20:00 08/03/22 07:36 Budesonide/Formoterol 160/4.5 6 Gm 60 Puff Inh IH 2 puffs BID DRISS Administration Device 1 each 07/30/22 19:00 Inhaler, Assist Device MC DIRECTED DRISS Dimethicone/Zinc Oxide 0 gm 07/30/22 16:40 Patrick Protect Cream 142 Gm Tube TP PRN PRN Docusate Sodium 100 mg 07/30/22 16:40 Docusate Sodium 100 Mg Cap PO TID PRN PRN Enoxaparin Sodium 90 mg 07/31/22 10:00 08/02/22 21:57 Enoxaparin 100 Mg/Ml Syr SC 90 mg Q12H DRISS Administration Guaifenesin 1,200 mg 07/30/22 20:00 08/02/22 20:06 Guaifenesin 600 Mg Tabcr PO 1,200 mg BID DRISS Administration Cefepime HCl 2 gm/ Sodium 100 mls @ 200 mls/hr 07/30/22 20:00 08/03/22 04:23 Chloride IVPB 200 mls/hr Q8H DRISS Administration Sodium Chloride 500 mls @ 0 mls/hr 07/30/22 20:33 08/03/22 06:21 Saline 500ml Bag IV 0 mls/hr PRN PRN Infusion As Directed IV Miscellaneous Supplies 1 each 07/30/22 10:30 Iv Access IV DIRECTED DRISS Lactobacillus Acidophilus/Casei 1 cap 08/01/22 08:30 08/02/22 08:21 L. Acidophilus, Casei, Rhamnosus Cap PO 1 cap DAILY DRISS Administration Magnesium Hydroxide 30 ml 07/30/22 16:40 Milk Of Magnesia 30 Ml Cup PO DAILY PRN PRN Melatonin 3 mg 07/31/22 22:00 08/02/22 21:57 Melatonin 3 Mg Tab PO 3 mg HS DRISS Administration Methylprednisolone Sodium Succinate 60 mg 07/30/22 20:00 08/02/22 20:04 Methylprednisolone Succ 125 Mg Vial IVP 60 mg BID DRISS Administration Pantoprazole Sodium 40 mg 07/31/22 07:30 08/02/22 08:22 Pantoprazole 40 Mg Tabcr PO 40 mg DAILY@0730 DRISS Administration Sodium Chloride 0 ml 07/30/22 10:26 08/03/22 04:22 Normal Saline Flush 10 Ml Syr IVP 20 ml PRN PRN Administration Sodium Chloride 3 ml 07/31/22 18:00 08/03/22 06:21 Sodium Chloride 0.9% For Inhalation 3 Ml Vial UPD 3 ml Q6H DRISS Administration Tiotropium [place] 2 puff 07/31/22 08:30 08/03/22 07:36 Tiotropium [place]-Respimat 10 Puff Inh IH 2 puffs DAILY DRISS Administration Trimethoprim/Sulfamethoxazole 1 tab 07/31/22 08:30 08/02/22 08:21 Sulfameth/Trimeth Ds Tab PO 1 tab DAILY DRISS Administration Allergies bee venom protein (honey bee) Allergy (Unknown, Verified 07/30/22 10:44) Exam Narrative Exam Narrative: Gen: in mild to moderate respiratory distress at rest HENT: PERRL Chest: Mild to moderate respiratory distress, crackles present throughout Heart: regular rate and rhythym, no murmurs, rubs or gallops Abdomen: Non-distended, soft, non tender Extremities: No clubbing, edema, cyanosis, rashes Neuro: AAOx3 , non focal Psych: cooperative, appropriate mental affect Results Last Vital Signs Temp 36 C L 08/03/22 07:31 Pulse 93 H 08/03/22 07:31 Resp 14 08/03/22 07:31 BP 112/67 08/03/22 07:31 Pulse Ox 89 L 08/03/22 07:37 Labs 08/02/22 06:12 08/01/22 06:12
[2022-08-03] MEDS: guaiFENesin 600 MG TABCR 1200 MG PO ×2 (09:41→19:02)
[2022-08-03] MEDS: methylPREDNISolone SUCC 125 MG VIAL 60 MG IVP ×2 (09:43→19:00)
[2022-08-03] MEDS: Pantoprazole 40 MG TABCR PO (09:48)
[2022-08-03] MEDS: Sulfameth/Trimeth DS TAB 1 TAB PO (09:48)
--- NOTE | 2022-08-03 10:53 | W.PM.PROGNOT ---
Date of Service Date of service: 08/03/22 Time of Service: 10:53 Assessment and Plan Assessment and plan (1) Organizing pneumonia: Status: Acute Assessment and plan: blood cultures 07/30: NGTD MRSA screen neg. legionella urine antigen: neg. urine strep pneumoniae antigen: pending fungitell pending histoplasmosis studies pending blastomyces studies pending respiratory viral panel negative (rhinovirus, RSV, parainfluenza, influenza A and influenza B, SARS-COV2). PARAM pending. inflammatory markers are improving: CRP 6.06>2.79>1.36>0.64; however his CT findings on admission were worse than over a month ago from 06/17/22. continue Cefepime; now off vancomycin.. continue high dose corticosteroids (solumedorol 60 mg iv q12h), encourage pulmonary toiletry (IS, acapella), continue aerosolized bronchodilators. I spoke w/ Dr. Torres this morning and she is considering whether or not to proceed w/ bronchoscopy. Patient is wary of any bronchial bx d/t family members who had complications from bronchoscopy. . The patient never received coverage for atyicals w/ doxycycline or azithromycin. However, given that he is improving w/out this and he had levaquin as outpatient, Dr. Balderrama indicated that as he is improving, she does not feel it necessary to add for atypicals however, if he plateaus or worsens, then she would recommend adding atypical coverage. Professional time spent interviewing and examining patient, discussion of goals of care with hospital team (care management, nursing and consulting professionals) was 30 minutes. (2) Right leg DVT: Status: Acute Assessment and plan: Started on therapeutic lovenox. Would not transition to a DOAC until plans re bronchoscopy are solidified. (3) COVID-19 long hauler manifesting chronic dyspnea: Status: Acute Assessment and plan: As above (4) Discharge planning issues: Status: Acute Assessment and plan: Full code Continues to require hospitalization. Subjective Subjective Interval history since last seen: Shawn is feeling better although he says that he still gets significantly dyspneic w/ any activity such as performance of ADL and walking to the bathroom. He says that he did cough up a greenish sputum specimen which was collected. I told Shawn that I had been in with Dr. Castillo, pulmonary from [facility] [place] and she was in agreement w/ his treatment. She also relayed that she would contact Dr. Macedo. I also told Shawn that I would have Dr. Torres see him later today. I discussed his care w/ Dr. Torres who indicated she would review his workup, treatment and then make recommendations. 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 Exam Narrative Exam Narrative: Obese white male, talking on his phone w/ his girlfriend whom he had listening to me as I went over his treatment and workup so far He is able to talk in complete sentences w/out getting winded Lungs: diffuse fine rales; no rhonchi or wheezing Heart: RRR w/o murmur or rub Abdomen: soft, nontender (he indicated that he finally has had a BM) Extremities: no edema or tenderness Objective Last Vital Signs Temp 36 C L 08/03/22 07:31 Pulse 93 H 08/03/22 07:31 Resp 14 08/03/22 07:31 BP 112/67 08/03/22 07:31 Pulse Ox 89 L 08/03/22 07:37 Laboratory Results - last 24 hr 07/31/22 05:53 Ur Strep pneumoniae Ag Negative Time Spent with Patient Time Spent with Patient: 25-34 minutes Time was spent: preparing to see the patient(eg.review tests), ordering medications,tests, procedures, referring, communicating with other health floor care specialist (Discussion with Dr. Torres), indepentently interpreting results, counseling the patient and care coordination
[2022-08-03 11:42] LABS: Abs Immature Grans 0.22 10^3/uL (0.0-0.06); Absolute Basophil Count 0.03 10^3/uL (0.0-0.2); Absolute Lymphocyte Count 0.51 10^3/uL (1.2-3.4); Basophils % 0.2; HGB 14.3 g/dL (13.5-17.5); Immature Grans % 1.3; Lymphocytes % 3.1; MCH 30.8 pg (27.0-33.0); MCHC 33.3 % (32.0-36.0); MCV 93 fL (80-95); MPV 8.4 fL (8.0-11.0); Monocytes % 6.7; Neutrophils % 88.7; Platelet Count 201 10^3/uL (130-400); RBC 4.65 10^6/uL (4.36-5.78); RDW 13.6 % (11.8-14.1); RDW-SD 46.5 fL; WBC 16.46 10^3/uL (4.4-10.8)
[2022-08-03 12:15] LABS: ALT 29 U/L (16-63); AST 15 U/L (15-37); Albumin 2.8 g/dL (3.4-5.0); Alkaline Phosphatase 63 U/L (46-116); Anion Gap 6.5 mmol/L (3-11); BUN 28 mg/dL (7-18); Bilirubin, Total 0.4 mg/dL (0.2-1.0); C-Reactive Protein 0.64 mg/dL (0.0-0.3); CO2 32.5 mmol/L (21.0-32.0); CREATININE 1.1 mg/dL (0.70-1.30); Calcium 9.3 mg/dL (8.5-10.1); Chloride 103 mmol/L (98-107); Glucose 119 mg/dL (74-106); Potassium 3.8 mmol/L (3.5-5.1); Sodium 142 mmol/L (136-145); Total Protein 6.4 g/dL (6.4-8.2)
[2022-08-03 14:18] LABS: Mycoplasma Pneumoniae PCR Negative; Specimen source Sputum
[2022-08-03 15:14] LABS: Fungitell Qualitative Negative (Negative); Fungitell Quantitative Value <31 pg/mL (<60 pg/mL)
[2022-08-03 15:15] LABS: Blastomyces Ag Result Not Detected; Blastomyces Ag Value Not Detected
--- NOTE | 2022-08-03 16:45 | CMPROGNOTE_ITS ---
- If Service Date Differs Date of service: 08/03/22 Time of Service: 16:45 Care Management Progress Note S/O: Shawn was sitting up in bed when CM met with him. He stated that he has improved since admission, but is still not feeling well. He reported that he met with Dr. Su, Pulomonologist today who recommended a bronchoscopy, which he is agreeable to. He is not agreeable to a biopsy, as he stated that his brother three days after a lung biopsy. He stated that he is happy with his care at [facility]. CM will continue to follow. A: Shawn is a 56 year old male admitted to [facility] on 07/30/22 for organizing pneumonia. P: Shawn may transfer to [facility] if accepted, and will transport via EMS vs return home once medically cleared. He does not feel that HH services are indicated at this time, as he has support from family and friends. He will follow up with his PCP and discharge plan of care. CM will continue to follow.
[2022-08-03] MEDS: Melatonin 3 MG TAB PO (21:28)
[2022-08-04] VITALS (46 sets, daily range): BP systolic 93–139; BP diastolic 55–83; PULSE 56–90; RESP 1–36; TEMP 31–37.4; O2SAT 79–98; BMI 28.5
[2022-08-04] MEDS: Albuterol/Ipratropium 3 ML UPD VIAL UPD ×5 (00:46→23:52)
[2022-08-04] MEDS: Sodium Chloride 0.9% for Inhalation 3 ML VIAL UPD ×5 (00:46→23:52)
[2022-08-04] MEDS: Normal Saline 500 ML IV (04:12)
[2022-08-04] MEDS: Normal Saline Flush 10 ML SYR IVP ×2 (04:13→10:03)
[2022-08-04] MEDS: CEFEPIME 2 GM in Normal Saline 100 ML IVPB ×2 (04:13→17:27)
[2022-08-04] MEDS: Tiotropium Bromide-Respimat 10 PUFF INH 2 PUFF IH (07:53)
[2022-08-04] MEDS: Budesonide/Formoterol 160/4.5 6 GM 60 PUFF INH IH ×2 (07:53→20:13)
[2022-08-04] MEDS: methylPREDNISolone SUCC 125 MG VIAL 60 MG IVP ×2 (10:02→20:12)
--- NOTE | 2022-08-04 10:13 | W.PULMPROG ---
Assessment and Plan Assessment and plan (1) Infiltrate of lung present on computed tomography: Status: Acute (2) Respiratory failure with hypoxia: Status: Acute (3) Organizing pneumonia: Status: Acute Assessment and plan: This is a 56 yo with worsening pulmonary infiltrates since May (s/p COVID) who has not responded to three course of prednisone and two courses of antibiotics. He has been on steroids for months and although was on ppx for PJP, it is possible he has a fungal infection that is causing this worsening. Blasto and histo urine antigens have been collected, as has a Fungitell, all of which are negative. I have investigated the PARAM more thoroughly with more rheumatologic testing all of which is pending. Ultimately, I do recommend a bronchoscopy for diagnostic purposes. We discussed BAL versus BAL and transbronchial biopsies. In shared decision making we will complete a BAL but forego the biopsies due to his concern for increased complication risk and small added benefit in this case. We discussed the risk given his current oxygen needs and that he may require HFNC as well as a possible ICU observation after the bronchoscopy. He is scheduled for bronchoscopy today at 1200. He was consented for this procedure this morning. Hypoxic respiratory failure - supplemental O2 for sats >90% Abnormal chest CT - worsening, despite significant steroid courses - histo, blasto and fungitell negative - blood cultures negative - anti-DNA, aspergillus Ag, ANCA, Scl-70, SSA/SSB, anti-Sm pending - bronchoscopy today at 1200 - Dr. Macedo on vacation until Wednesday - unable to discuss case with her General Date Of Service Date of service: 08/04/22 Time of Service: 07:25 Reason for Consult: Abnormal chest CT Subjective 24 Hour Events: I received a call from [facility] pulmonary - Dr. Macedo is on vacation and not back until Wednesday so was unable to discuss case with her. Note Note: He continues to require O2 and states he is still not feeling any improvement. He was consented this morning for flexible bronchoscopy. Exam Narrative Exam Narrative: Gen:?in mild to moderate respiratory distress at rest HENT:?PERRL Chest:?Mild to moderate respiratory distress, crackles present throughout Heart:?regular rate and rhythym, no murmurs, rubs or gallops Abdomen:?Non-distended, soft, non tender Extremities:?No clubbing, edema, cyanosis, rashes Neuro:?AAOx3 , non focal Psych:?cooperative, appropriate mental affect Objective Last Vital Signs Temp 36 C L 08/04/22 07:27 Pulse 56 L 08/04/22 07:27 Resp 20 08/04/22 07:27 BP 139/79 08/04/22 07:27 Pulse Ox 93 08/04/22 07:27 Laboratory Results - last 24 hr 07/30/22 07/31/22 07/31/22 17:40 05:53 13:10 WBC RBC Hgb Hct MCV MCH MCHC RDW Plt Count MPV Immature Gran % Neutrophils % Lymphocytes % Monocytes % Eosinophils % Basophils % Nucleated RBC % Absolute Neutrophils Absolute Lymphocytes Absolute Monocytes Absolute Eosinophils Absolute Basophils Sodium Potassium Chloride Carbon Dioxide Anion Gap BUN Creatinine Est GFR (CKD-EPI 2020) Glucose Calcium Total Bilirubin AST ALT Alkaline Phosphatase C-Reactive Protein Total Protein Albumin Blastomyces Ag Result Blastomyces Ag Comment Urine Histoplasma Ag U Histoplasma Ag Index M. pneumoniae Source Sputum M. pneumoniae (PCR) Negative Ur Strep pneumoniae Ag Negative B-(1,3)-D-Glucan Quant <31 B-(1,3)-D-Glucan Qual Negative 07/31/22 07/31/22 08/03/22 14:17 14:17 11:35 WBC 16.46 H RBC 4.65 Hgb 14.3 Hct 43.0 MCV 93 MCH 30.8 MCHC 33.3 RDW 13.6 Plt Count 201 MPV 8.4 Immature Gran % 1.3 Neutrophils % 88.7 Lymphocytes % 3.1 Monocytes % 6.7 Eosinophils % 0.0 Basophils % 0.2 Nucleated RBC % 0.0 Absolute Neutrophils 14.60 H Absolute Lymphocytes 0.51 L Absolute Monocytes 1.10 H Absolute Eosinophils 0.00 Absolute Basophils 0.03 Sodium Potassium Chloride Carbon Dioxide Anion Gap BUN Creatinine Est GFR (CKD-EPI 2020) Glucose Calcium Total Bilirubin AST ALT Alkaline Phosphatase C-Reactive Protein Total Protein Albumin Blastomyces Ag Result Not Detected Blastomyces Ag Comment Not Detected Urine Histoplasma Ag Not Detected U Histoplasma Ag Index Not Detected M. pneumoniae Source M. pneumoniae (PCR) Ur Strep pneumoniae Ag B-(1,3)-D-Glucan Quant B-(1,3)-D-Glucan Qual 08/03/22 11:35 WBC RBC Hgb Hct MCV MCH MCHC RDW Plt Count MPV Immature Gran % Neutrophils % Lymphocytes % Monocytes % Eosinophils % Basophils % Nucleated RBC % Absolute Neutrophils Absolute Lymphocytes Absolute Monocytes Absolute Eosinophils Absolute Basophils Sodium 142 Potassium 3.8 Chloride 103 Carbon Dioxide 32.5 H Anion Gap 6.5 BUN 28 H Creatinine 1.1 Est GFR (CKD-EPI 2020) 78.30 Glucose 119 H Calcium 9.3 Total Bilirubin 0.4 AST 15 ALT 29 Alkaline Phosphatase 63 C-Reactive Protein 0.64 H Total Protein 6.4 Albumin 2.8 L Blastomyces Ag Result Blastomyces Ag Comment Urine Histoplasma Ag U Histoplasma Ag Index M. pneumoniae Source M. pneumoniae (PCR) Ur Strep pneumoniae Ag B-(1,3)-D-Glucan Quant B-(1,3)-D-Glucan Qual Results Medications Medications: Active Medications Generic Name Dose Route Start Last Admin Trade Name Freq PRN Reason Stop Dose Admin Acetaminophen 0 mg 07/30/22 16:40 Acetaminophen 325 Mg Tab PO Q4H PRN PRN Al Hydrox/Mg Hydrox/Simethicone 30 ml 07/30/22 16:40 Mylanta Suspension 30 Ml Cup PO Q2H PRN PRN Albuterol Sulfate 2.5 mg 07/30/22 16:40 08/01/22 06:10 Albuterol 2.5 Mg/3 Ml Inh Soln Vial UPD 2.5 mg Q2H PRN PRN Administration Albuterol/Ipratropium 3 ml 07/30/22 18:00 08/04/22 05:53 Albuterol/Ipratropium 3 Ml Upd Vial UPD 3 ml Q6H DRISS Administration Benzonatate 200 mg 07/30/22 20:00 08/03/22 19:02 Benzonatate 200 Mg Cap PO 200 mg TID DRISS Administration Budesonide/Formoterol Fumarate 2 puff 07/30/22 20:00 08/04/22 07:53 Budesonide/Formoterol 160/4.5 6 Gm 60 Puff Inh IH 2 puffs BID DRISS Administration Device 1 each 07/30/22 19:00 Inhaler, Assist Device DIRECTED DRISS Dimethicone/Zinc Oxide 0 gm 07/30/22 16:40 Patrick Protect Cream 142 Gm Tube TP PRN PRN Docusate Sodium 100 mg 07/30/22 16:40 Docusate Sodium 100 Mg Cap PO TID PRN PRN Enoxaparin Sodium 90 mg 07/31/22 10:00 08/04/22 09:41 Enoxaparin 100 Mg/Ml Syr SC Not Given Q12H DRISS Guaifenesin 1,200 mg 07/30/22 20:00 08/03/22 19:02 Guaifenesin 600 Mg Tabcr PO 1,200 mg BID DRISS Administration Cefepime HCl 2 gm/ Sodium 100 mls @ 200 mls/hr 07/30/22 20:00 08/04/22 04:13 Chloride IVPB 200 mls/hr Q8H DRISS Administration Sodium Chloride 500 mls @ 0 mls/hr 07/30/22 20:33 08/04/22 04:12 Saline 500ml Bag IV 0.1 mls/hr PRN PRN Administration As Directed IV Miscellaneous Supplies 1 each 07/30/22 10:30 Iv Access IV DIRECTED DRISS Lactobacillus Acidophilus/Casei 1 cap 08/01/22 08:30 08/03/22 09:42 L. Acidophilus, Casei, Rhamnosus Cap PO 1 cap DAILY DRISS Administration Magnesium Hydroxide 30 ml 07/30/22 16:40 Milk Of Magnesia 30 Ml Cup PO DAILY PRN PRN Melatonin 3 mg 07/31/22 22:00 08/03/22 21:28 Melatonin 3 Mg Tab PO 3 mg HS DRISS Administration Methylprednisolone Sodium Succinate 60 mg 07/30/22 20:00 08/04/22 10:02 Methylprednisolone Succ 125 Mg Vial IVP 60 mg BID DRISS Administration Pantoprazole Sodium 40 mg 07/31/22 07:30 08/03/22 09:48 Pantoprazole 40 Mg Tabcr PO 40 mg DAILY@0730 DRISS Administration Sodium Chloride 0 ml 07/30/22 10:26 08/04/22 10:03 Normal Saline Flush 10 Ml Syr IVP 10 ml PRN PRN Administration Sodium Chloride 3 ml 07/31/22 18:00 08/04/22 05:53 Sodium Chloride 0.9% For Inhalation 3 Ml Vial UPD 3 ml Q6H DRISS Administration Tiotropium Riggins 2 puff 07/31/22 08:30 08/04/22 07:53 Tiotropium Riggins-Respimat 10 Puff Inh IH 2 puffs DAILY DRISS Administration Trimethoprim/Sulfamethoxazole 1 tab 07/31/22 08:30 08/03/22 09:48 Sulfameth/Trimeth Ds Tab PO 1 tab DAILY DRISS Administration Allergies bee venom protein (honey bee) Allergy (Unknown, Verified 07/30/22 10:44) Labs 08/03/22 11:35 08/03/22 11:35 Labs: 07/30/22 13:44 Blood Blood Culture - Preliminary NO GROWTH 96 HOURS 07/30/22 13:30 Blood Blood Culture - Preliminary NO GROWTH 96 HOURS 08/03/22 09:35 Sputum - Expectorated Sputum Culture - Pending 08/03/22 09:35 Sputum - Expectorated Gram Stain - Final 07/30/22 17:40 Sputum Sputum Culture - Final Normal Beba 07/30/22 17:40 Sputum Gram Stain - Final 07/31/22 14:23 Nose MRSA Screen - Final Laboratory Tests Range/Units 07/30/22 07/30/22 07/30/22 10:25 10:25 10:25 WBC (4.4-10.8) 10^3/uL 13.96 H RBC (4.36-5.78) 10^6/uL 4.80 Hgb (13.5-17.5) g/dL 15.1 Hct (40.0-50.0) % 46.1 MCV (80-95) fL 96 H MCH (27.0-33.0) pg 31.5 MCHC (32.0-36.0) % 32.8 RDW (11.8-14.1) % 13.8 Plt Count (130-400) 10^3/uL 196 MPV (8.0-11.0) fL 7.9 L Immature Gran % 0.7 Neutrophils % 70.5 Lymphocytes % 19.2 Monocytes % 7.5 Eosinophils % 1.9 Basophils % 0.2 Nucleated RBC % (0.0-0.3) % 0.0 Absolute Neutrophils (1.2-6.7) 10^3/uL 9.84 H Absolute Lymphocytes (1.2-3.4) 10^3/uL 2.68 Absolute Monocytes (0.1-0.8) 10^3/uL 1.05 H Absolute Eosinophils (0.0-0.7) 10^3/uL 0.27 Absolute Basophils (0.0-0.2) 10^3/uL 0.03 ESR (0-20) mm/hr PT (9.3-11.0) sec 9.9 INR (0.9-1.1) 1.0 APTT (21.5-31.9) sec 24.1 D-Dimer (<500) ng/mlFEU 1869 H Sodium (136-145) mmol/L 139 Potassium (3.5-5.1) mmol/L 3.2 L Chloride (98-107) mmol/L 102 Carbon Dioxide (21.0-32.0) mmol/L 32.9 H Anion Gap (3-11) mmol/L 4.1 BUN (7-18) mg/dL 16 Creatinine (0.70-1.30) mg/dL 1.3 Est GFR (CKD-EPI 2020) (mL/min/1.73m2) 64.07 Glucose (74-106) mg/dL 92 Calcium (8.5-10.1) mg/dL 8.9 Magnesium (1.8-2.4) mg/dL 2.1 Total Bilirubin (0.2-1.0) mg/dL 0.7 AST (15-37) U/L 20 ALT (16-63) U/L 25 Alkaline Phosphatase (46-116) U/L 75 Troponin I (<or=60) ng/L < 50 C-Reactive Protein (0.0-0.3) mg/dL NT-Pro-B Natriuret Pep (<300) pg/mL 26 Total Protein (6.4-8.2) g/dL 6.7 Albumin (3.4-5.0) g/dL 2.9 L Procalcitonin ng/mL Adenovirus DNA (Negative) Blastomyces Ag Result Blastomyces Ag Comment ng/mL COVID-19 Source SARS-CoV-2 (PCR) (Negative) Urine Histoplasma Ag U Histoplasma Ag Index ng/mL Human Metapneumovir RNA (Negative) Influenza Type A (PCR) (Negative) Influenza Type B (PCR) (Negative) Urine Legionella Ag (Negative) M. pneumoniae Source M. pneumoniae (PCR) Parainfluenza 1 (PCR) (Negative) Parainfluenza 2 (PCR) (Negative) Parainfluenza 3 (PCR) (Negative) Parainfluenza 4 (PCR) (Negative) RSV (PCR) (Negative) Resp Viral Spec Desc Rhinovirus (PCR) (Negative) Ur Strep pneumoniae Ag (Negative) B-(1,3)-D-Glucan Quant (<60 pg/mL) pg/mL B-(1,3)-D-Glucan Qual (Negative) Range/Units 07/30/22 07/30/22 07/30/22 10:25 13:30 13:30 WBC (4.4-10.8) 10^3/uL RBC (4.36-5.78) 10^6/uL Hgb (13.5-17.5) g/dL Hct (40.0-50.0) % MCV (80-95) fL MCH (27.0-33.0) pg MCHC (32.0-36.0) % RDW (11.8-14.1) % Plt Count (130-400) 10^3/uL MPV (8.0-11.0) fL Immature Gran % Neutrophils % Lymphocytes % Monocytes % Eosinophils % Basophils % Nucleated RBC % (0.0-0.3) % Absolute Neutrophils (1.2-6.7) 10^3/uL Absolute Lymphocytes (1.2-3.4) 10^3/uL Absolute Monocytes (0.1-0.8) 10^3/uL Absolute Eosinophils (0.0-0.7) 10^3/uL Absolute Basophils (0.0-0.2) 10^3/uL ESR (0-20) mm/hr PT (9.3-11.0) sec INR (0.9-1.1) APTT (21.5-31.9) sec D-Dimer (<500) ng/mlFEU Sodium (136-145) mmol/L Potassium (3.5-5.1) mmol/L Chloride (98-107) mmol/L Carbon Dioxide (21.0-32.0) mmol/L Anion Gap (3-11) mmol/L BUN (7-18) mg/dL Creatinine (0.70-1.30) mg/dL Est GFR (CKD-EPI 2020) (mL/min/1.73m2) Glucose (74-106) mg/dL Calcium (8.5-10.1) mg/dL Magnesium (1.8-2.4) mg/dL Total Bilirubin (0.2-1.0) mg/dL AST (15-37) U/L ALT (16-63) U/L Alkaline Phosphatase (46-116) U/L Troponin I (<or=60) ng/L C-Reactive Protein (0.0-0.3) mg/dL NT-Pro-B Natriuret Pep (<300) pg/mL Total Protein (6.4-8.2) g/dL Albumin (3.4-5.0) g/dL Procalcitonin ng/mL < 0.1 Adenovirus DNA (Negative) Negative Blastomyces Ag Result Blastomyces Ag Comment ng/mL COVID-19 Source Nasopharynx SARS-CoV-2 (PCR) (Negative) Negative Urine Histoplasma Ag U Histoplasma Ag Index ng/mL Human Metapneumovir RNA (Negative) Negative Influenza Type A (PCR) (Negative) Negative Influenza Type B (PCR) (Negative) Negative Urine Legionella Ag (Negative) M. pneumoniae Source M. pneumoniae (PCR) Parainfluenza 1 (PCR) (Negative) Negative Parainfluenza 2 (PCR) (Negative) Negative Parainfluenza 3 (PCR) (Negative) Negative Parainfluenza 4 (PCR) (Negative) Negative RSV (PCR) (Negative) Negative Resp Viral Spec Desc Not Applicable Rhinovirus (PCR) (Negative) Negative Ur Strep pneumoniae Ag (Negative) B-(1,3)-D-Glucan Quant (<60 pg/mL) pg/mL B-(1,3)-D-Glucan Qual (Negative) Range/Units 07/30/22 07/31/22 07/31/22 17:40 05:53 05:54 WBC (4.4-10.8) 10^3/uL RBC (4.36-5.78) 10^6/uL Hgb (13.5-17.5) g/dL Hct (40.0-50.0) % MCV (80-95) fL MCH (27.0-33.0) pg MCHC (32.0-36.0) % RDW (11.8-14.1) % Plt Count (130-400) 10^3/uL MPV (8.0-11.0) fL Immature Gran % Neutrophils % Lymphocytes % Monocytes % Eosinophils % Basophils % Nucleated RBC % (0.0-0.3) % Absolute Neutrophils (1.2-6.7) 10^3/uL Absolute Lymphocytes (1.2-3.4) 10^3/uL Absolute Monocytes (0.1-0.8) 10^3/uL Absolute Eosinophils (0.0-0.7) 10^3/uL Absolute Basophils (0.0-0.2) 10^3/uL ESR (0-20) mm/hr PT (9.3-11.0) sec INR (0.9-1.1) APTT (21.5-31.9) sec D-Dimer (<500) ng/mlFEU Sodium (136-145) mmol/L Potassium (3.5-5.1) mmol/L Chloride (98-107) mmol/L Carbon Dioxide (21.0-32.0) mmol/L Anion Gap (3-11) mmol/L BUN (7-18) mg/dL Creatinine (0.70-1.30) mg/dL Est GFR (CKD-EPI 2020) (mL/min/1.73m2) Glucose (74-106) mg/dL Calcium (8.5-10.1) mg/dL Magnesium (1.8-2.4) mg/dL Total Bilirubin (0.2-1.0) mg/dL AST (15-37) U/L ALT (16-63) U/L Alkaline Phosphatase (46-116) U/L Troponin I (<or=60) ng/L C-Reactive Protein (0.0-0.3) mg/dL NT-Pro-B Natriuret Pep (<300) pg/mL Total Protein (6.4-8.2) g/dL Albumin (3.4-5.0) g/dL Procalcitonin ng/mL Adenovirus DNA (Negative) Blastomyces Ag Result Blastomyces Ag Comment ng/mL COVID-19 Source SARS-CoV-2 (PCR) (Negative) Urine Histoplasma Ag U Histoplasma Ag Index ng/mL Human Metapneumovir RNA (Negative) Influenza Type A (PCR) (Negative) Influenza Type B (PCR) (Negative) Urine Legionella Ag (Negative) Negative M. pneumoniae Source Sputum M. pneumoniae (PCR) Negative Parainfluenza 1 (PCR) (Negative) Parainfluenza 2 (PCR) (Negative) Parainfluenza 3 (PCR) (Negative) Parainfluenza 4 (PCR) (Negative) RSV (PCR) (Negative) Resp Viral Spec Desc Rhinovirus (PCR) (Negative) Ur Strep pneumoniae Ag (Negative) Negative B-(1,3)-D-Glucan Quant (<60 pg/mL) pg/mL B-(1,3)-D-Glucan Qual (Negative) Range/Units 07/31/22 07/31/22 07/31/22 06:10 06:10 13:10 WBC (4.4-10.8) 10^3/uL 10.90 H RBC (4.36-5.78) 10^6/uL 4.32 L Hgb (13.5-17.5) g/dL 13.4 L Hct (40.0-50.0) % 40.1 MCV (80-95) fL 93 MCH (27.0-33.0) pg 31.0 MCHC (32.0-36.0) % 33.4 RDW (11.8-14.1) % 13.6 Plt Count (130-400) 10^3/uL 214 MPV (8.0-11.0) fL 8.5 Immature Gran % 0.6 Neutrophils % 86.7 Lymphocytes % 7.7 Monocytes % 5.0 Eosinophils % 0.0 Basophils % 0.0 Nucleated RBC % (0.0-0.3) % 0.0 Absolute Neutrophils (1.2-6.7) 10^3/uL 9.45 H Absolute Lymphocytes (1.2-3.4) 10^3/uL 0.84 L Absolute Monocytes (0.1-0.8) 10^3/uL 0.55 Absolute Eosinophils (0.0-0.7) 10^3/uL 0.00 Absolute Basophils (0.0-0.2) 10^3/uL 0.00 ESR (0-20) mm/hr PT (9.3-11.0) sec INR (0.9-1.1) APTT (21.5-31.9) sec D-Dimer (<500) ng/mlFEU Sodium (136-145) mmol/L 138 Potassium (3.5-5.1) mmol/L 4.2 D Chloride (98-107) mmol/L 103 Carbon Dioxide (21.0-32.0) mmol/L 28.5 Anion Gap (3-11) mmol/L 6.5 BUN (7-18) mg/dL 27 H Creatinine (0.70-1.30) mg/dL 1.0 Est GFR (CKD-EPI 2020) (mL/min/1.73m2) 87.78 Glucose (74-106) mg/dL 136 H Calcium (8.5-10.1) mg/dL 9.2 Magnesium (1.8-2.4) mg/dL 2.3 Total Bilirubin (0.2-1.0) mg/dL AST (15-37) U/L ALT (16-63) U/L Alkaline Phosphatase (46-116) U/L Troponin I (<or=60) ng/L C-Reactive Protein (0.0-0.3) mg/dL 6.06 H NT-Pro-B Natriuret Pep (<300) pg/mL Total Protein (6.4-8.2) g/dL Albumin (3.4-5.0) g/dL Procalcitonin ng/mL Adenovirus DNA (Negative) Blastomyces Ag Result Blastomyces Ag Comment ng/mL COVID-19 Source SARS-CoV-2 (PCR) (Negative) Urine Histoplasma Ag U Histoplasma Ag Index ng/mL Human Metapneumovir RNA (Negative) Influenza Type A (PCR) (Negative) Influenza Type B (PCR) (Negative) Urine Legionella Ag (Negative) M. pneumoniae Source M. pneumoniae (PCR) Parainfluenza 1 (PCR) (Negative) Parainfluenza 2 (PCR) (Negative) Parainfluenza 3 (PCR) (Negative) Parainfluenza 4 (PCR) (Negative) RSV (PCR) (Negative) Resp Viral Spec Desc Rhinovirus (PCR) (Negative) Ur Strep pneumoniae Ag (Negative) B-(1,3)-D-Glucan Quant (<60 pg/mL) pg/mL <31 B-(1,3)-D-Glucan Qual (Negative) Negative Range/Units 07/31/22 07/31/22 07/31/22 14:17 14:17 Unknown WBC (4.4-10.8) 10^3/uL RBC (4.36-5.78) 10^6/uL Hgb (13.5-17.5) g/dL Hct (40.0-50.0) % MCV (80-95) fL MCH (27.0-33.0) pg MCHC (32.0-36.0) % RDW (11.8-14.1) % Plt Count (130-400) 10^3/uL MPV (8.0-11.0) fL Immature Gran % Neutrophils % Lymphocytes % Monocytes % Eosinophils % Basophils % Nucleated RBC % (0.0-0.3) % Absolute Neutrophils (1.2-6.7) 10^3/uL Absolute Lymphocytes (1.2-3.4) 10^3/uL Absolute Monocytes (0.1-0.8) 10^3/uL Absolute Eosinophils (0.0-0.7) 10^3/uL Absolute Basophils (0.0-0.2) 10^3/uL ESR (0-20) mm/hr PT (9.3-11.0) sec INR (0.9-1.1) APTT (21.5-31.9) sec D-Dimer (<500) ng/mlFEU Sodium (136-145) mmol/L Potassium (3.5-5.1) mmol/L Chloride (98-107) mmol/L Carbon Dioxide (21.0-32.0) mmol/L Anion Gap (3-11) mmol/L BUN (7-18) mg/dL Creatinine (0.70-1.30) mg/dL Est GFR (CKD-EPI 2020) (mL/min/1.73m2) Glucose (74-106) mg/dL Calcium (8.5-10.1) mg/dL Magnesium (1.8-2.4) mg/dL Total Bilirubin (0.2-1.0) mg/dL AST (15-37) U/L ALT (16-63) U/L Alkaline Phosphatase (46-116) U/L Troponin I (<or=60) ng/L C-Reactive Protein (0.0-0.3) mg/dL NT-Pro-B Natriuret Pep (<300) pg/mL Total Protein (6.4-8.2) g/dL Albumin (3.4-5.0) g/dL Procalcitonin ng/mL Adenovirus DNA (Negative) Blastomyces Ag Result Not Detected Cancelled Blastomyces Ag Comment ng/mL Not Detected Cancelled COVID-19 Source SARS-CoV-2 (PCR) (Negative) Urine Histoplasma Ag Not Detected U Histoplasma Ag Index ng/mL Not Detected Human Metapneumovir RNA (Negative) Influenza Type A (PCR) (Negative) Influenza Type B (PCR) (Negative) Urine Legionella Ag (Negative) M. pneumoniae Source M. pneumoniae (PCR) Parainfluenza 1 (PCR) (Negative) Parainfluenza 2 (PCR) (Negative) Parainfluenza 3 (PCR) (Negative) Parainfluenza 4 (PCR) (Negative) RSV (PCR) (Negative) Resp Viral Spec Desc Rhinovirus (PCR) (Negative) Ur Strep pneumoniae Ag (Negative) B-(1,3)-D-Glucan Quant (<60 pg/mL) pg/mL B-(1,3)-D-Glucan Qual (Negative) Range/Units 08/01/22 08/01/22 08/02/22 06:12 06:12 06:12 WBC (4.4-10.8) 10^3/uL 14.58 H RBC (4.36-5.78) 10^6/uL 4.32 L Hgb (13.5-17.5) g/dL 13.4 L Hct (40.0-50.0) % 40.4 MCV (80-95) fL 94 MCH (27.0-33.0) pg 31.0 MCHC (32.0-36.0) % 33.2 RDW (11.8-14.1) % 13.4 Plt Count (130-400) 10^3/uL 212 MPV (8.0-11.0) fL 8.3 Immature Gran % 0.8 Neutrophils % 88.3 Lymphocytes % 6.9 Monocytes % 3.9 Eosinophils % 0.0 Basophils % 0.1 Nucleated RBC % (0.0-0.3) % 0.0 Absolute Neutrophils (1.2-6.7) 10^3/uL 12.87 H Absolute Lymphocytes (1.2-3.4) 10^3/uL 1.01 L Absolute Monocytes (0.1-0.8) 10^3/uL 0.57 Absolute Eosinophils (0.0-0.7) 10^3/uL 0.00 Absolute Basophils (0.0-0.2) 10^3/uL 0.01 ESR (0-20) mm/hr PT (9.3-11.0) sec INR (0.9-1.1) APTT (21.5-31.9) sec D-Dimer (<500) ng/mlFEU Sodium (136-145) mmol/L 137 Potassium (3.5-5.1) mmol/L 3.9 Chloride (98-107) mmol/L 104 Carbon Dioxide (21.0-32.0) mmol/L 26.1 Anion Gap (3-11) mmol/L 6.9 BUN (7-18) mg/dL 27 H Creatinine (0.70-1.30) mg/dL 1.1 Est GFR (CKD-EPI 2020) (mL/min/1.73m2) 78.30 Glucose (74-106) mg/dL 130 H Calcium (8.5-10.1) mg/dL 9.0 Magnesium (1.8-2.4) mg/dL 2.3 Total Bilirubin (0.2-1.0) mg/dL AST (15-37) U/L ALT (16-63) U/L Alkaline Phosphatase (46-116) U/L Troponin I (<or=60) ng/L C-Reactive Protein (0.0-0.3) mg/dL 2.79 H 1.36 H NT-Pro-B Natriuret Pep (<300) pg/mL Total Protein (6.4-8.2) g/dL Albumin (3.4-5.0) g/dL Procalcitonin ng/mL Adenovirus DNA (Negative) Blastomyces Ag Result Blastomyces Ag Comment ng/mL COVID-19 Source SARS-CoV-2 (PCR) (Negative) Urine Histoplasma Ag U Histoplasma Ag Index ng/mL Human Metapneumovir RNA (Negative) Influenza Type A (PCR) (Negative) Influenza Type B (PCR) (Negative) Urine Legionella Ag (Negative) M. pneumoniae Source M. pneumoniae (PCR) Parainfluenza 1 (PCR) (Negative) Parainfluenza 2 (PCR) (Negative) Parainfluenza 3 (PCR) (Negative) Parainfluenza 4 (PCR) (Negative) RSV (PCR) (Negative) Resp Viral Spec Desc Rhinovirus (PCR) (Negative) Ur Strep pneumoniae Ag (Negative) B-(1,3)-D-Glucan Quant (<60 pg/mL) pg/mL B-(1,3)-D-Glucan Qual (Negative) Range/Units 08/02/22 08/02/22 08/02/22 06:12 06:12 06:12 WBC (4.4-10.8) 10^3/uL 11.94 H RBC (4.36-5.78) 10^6/uL 4.31 L Hgb (13.5-17.5) g/dL 13.5 Hct (40.0-50.0) % 40.5 MCV (80-95) fL 94 MCH (27.0-33.0) pg 31.3 MCHC (32.0-36.0) % 33.3 RDW (11.8-14.1) % 13.4 Plt Count (130-400) 10^3/uL 197 MPV (8.0-11.0) fL 8.5 Immature Gran % 0.9 Neutrophils % 89.0 Lymphocytes % 5.5 Monocytes % 4.4 Eosinophils % 0.1 Basophils % 0.1 Nucleated RBC % (0.0-0.3) % 0.0 Absolute Neutrophils (1.2-6.7) 10^3/uL 10.63 H Absolute Lymphocytes (1.2-3.4) 10^3/uL 0.66 L Absolute Monocytes (0.1-0.8) 10^3/uL 0.53 Absolute Eosinophils (0.0-0.7) 10^3/uL 0.01 Absolute Basophils (0.0-0.2) 10^3/uL 0.01 ESR (0-20) mm/hr 21 H PT (9.3-11.0) sec INR (0.9-1.1) APTT (21.5-31.9) sec D-Dimer (<500) ng/mlFEU Sodium (136-145) mmol/L Potassium (3.5-5.1) mmol/L Chloride (98-107) mmol/L Carbon Dioxide (21.0-32.0) mmol/L Anion Gap (3-11) mmol/L BUN (7-18) mg/dL Creatinine (0.70-1.30) mg/dL Est GFR (CKD-EPI 2020) (mL/min/1.73m2) Glucose (74-106) mg/dL Calcium (8.5-10.1) mg/dL Magnesium (1.8-2.4) mg/dL Total Bilirubin (0.2-1.0) mg/dL AST (15-37) U/L ALT (16-63) U/L Alkaline Phosphatase (46-116) U/L Troponin I (<or=60) ng/L C-Reactive Protein (0.0-0.3) mg/dL NT-Pro-B Natriuret Pep (<300) pg/mL Total Protein (6.4-8.2) g/dL Albumin (3.4-5.0) g/dL Procalcitonin ng/mL < 0.1 Adenovirus DNA (Negative) Blastomyces Ag Result Blastomyces Ag Comment ng/mL COVID-19 Source SARS-CoV-2 (PCR) (Negative) Urine Histoplasma Ag U Histoplasma Ag Index ng/mL Human Metapneumovir RNA (Negative) Influenza Type A (PCR) (Negative) Influenza Type B (PCR) (Negative) Urine Legionella Ag (Negative) M. pneumoniae Source M. pneumoniae (PCR) Parainfluenza 1 (PCR) (Negative) Parainfluenza 2 (PCR) (Negative) Parainfluenza 3 (PCR) (Negative) Parainfluenza 4 (PCR) (Negative) RSV (PCR) (Negative) Resp Viral Spec Desc Rhinovirus (PCR) (Negative) Ur Strep pneumoniae Ag (Negative) B-(1,3)-D-Glucan Quant (<60 pg/mL) pg/mL B-(1,3)-D-Glucan Qual (Negative) Range/Units 08/03/22 08/03/22 11:35 11:35 WBC (4.4-10.8) 10^3/uL 16.46 H RBC (4.36-5.78) 10^6/uL 4.65 Hgb (13.5-17.5) g/dL 14.3 Hct (40.0-50.0) % 43.0 MCV (80-95) fL 93 MCH (27.0-33.0) pg 30.8 MCHC (32.0-36.0) % 33.3 RDW (11.8-14.1) % 13.6 Plt Count (130-400) 10^3/uL 201 MPV (8.0-11.0) fL 8.4 Immature Gran % 1.3 Neutrophils % 88.7 Lymphocytes % 3.1 Monocytes % 6.7 Eosinophils % 0.0 Basophils % 0.2 Nucleated RBC % (0.0-0.3) % 0.0 Absolute Neutrophils (1.2-6.7) 10^3/uL 14.60 H Absolute Lymphocytes (1.2-3.4) 10^3/uL 0.51 L Absolute Monocytes (0.1-0.8) 10^3/uL 1.10 H Absolute Eosinophils (0.0-0.7) 10^3/uL 0.00 Absolute Basophils (0.0-0.2) 10^3/uL 0.03 ESR (0-20) mm/hr PT (9.3-11.0) sec INR (0.9-1.1) APTT (21.5-31.9) sec D-Dimer (<500) ng/mlFEU Sodium (136-145) mmol/L 142 Potassium (3.5-5.1) mmol/L 3.8 Chloride (98-107) mmol/L 103 Carbon Dioxide (21.0-32.0) mmol/L 32.5 H Anion Gap (3-11) mmol/L 6.5 BUN (7-18) mg/dL 28 H Creatinine (0.70-1.30) mg/dL 1.1 Est GFR (CKD-EPI 2020) (mL/min/1.73m2) 78.30 Glucose (74-106) mg/dL 119 H Calcium (8.5-10.1) mg/dL 9.3 Magnesium (1.8-2.4) mg/dL Total Bilirubin (0.2-1.0) mg/dL 0.4 AST (15-37) U/L 15 ALT (16-63) U/L 29 Alkaline Phosphatase (46-116) U/L 63 Troponin I (<or=60) ng/L C-Reactive Protein (0.0-0.3) mg/dL 0.64 H NT-Pro-B Natriuret Pep (<300) pg/mL Total Protein (6.4-8.2) g/dL 6.4 Albumin (3.4-5.0) g/dL 2.8 L Procalcitonin ng/mL Adenovirus DNA (Negative) Blastomyces Ag Result Blastomyces Ag Comment ng/mL COVID-19 Source SARS-CoV-2 (PCR) (Negative) Urine Histoplasma Ag U Histoplasma Ag Index ng/mL Human Metapneumovir RNA (Negative) Influenza Type A (PCR) (Negative) Influenza Type B (PCR) (Negative) Urine Legionella Ag (Negative) M. pneumoniae Source M. pneumoniae (PCR) Parainfluenza 1 (PCR) (Negative) Parainfluenza 2 (PCR) (Negative) Parainfluenza 3 (PCR) (Negative) Parainfluenza 4 (PCR) (Negative) RSV (PCR) (Negative) Resp Viral Spec Desc Rhinovirus (PCR) (Negative) Ur Strep pneumoniae Ag (Negative) B-(1,3)-D-Glucan Quant (<60 pg/mL) pg/mL B-(1,3)-D-Glucan Qual (Negative)
--- NOTE | 2022-08-04 10:19 | W.ANESPRE ---
General Info Date of Service Date Performed: 08/04/22 Height: 5 ft 7 in Weight: 82.8 kg Body Mass Index (BMI): 28.5 Surgical Procedure: Operation Date: 08/04/22 12:10 Proposed Procedure Side Surgeon p Bronchoscopy w/IRENE Torres MD Meds Allergies and Home Medications Allergies Allergy/AdvReac Type Severity Reaction Status Date / Time bee venom protein (honey bee) Allergy Unknown Verified 07/30/22 10:44 Home Medication Medication Instructions Recorded sulfamethoxazole 800 1 tab PO DAILY #60 tabs 05/29/22 mg-trimethoprim 160 mg tablet (Bactrim DS) ipratropium 20 mcg-albuterol 100 See Rx Instructions inhalation QID 06/09/22 mcg/actuation mist for inhalation PRN shortness of breath or wheezing #4 grams umeclidinium 62.5 mcg-vilanterol 1 inh inhalation DAILY 07/15/22 25 mcg/actuation powdr for inhalation (Anoro Ellipta) dextromethorphan-guaifenesin 30 1 tab PO BID 07/30/22 mg-600 mg tablet extended [id number] hr (Mucinex DM) prednisone 20 mg tablet 40 mg PO DAILY 07/30/22 Lactobacillus acidophilus 10 10,000 mmu cells PO DAILY 07/31/22 billion cell capsule (Probiotic) azithromycin 500 mg tablet 500 mg PO DAILY 07/31/22 Current Visit Medications: Current Medications Generic Name Dose Route Start Last Admin Trade Name Freq PRN Reason Stop Dose Admin Acetaminophen 0 mg 07/30/22 16:40 Acetaminophen 325 Mg Tab PO Q4H PRN PRN Al Hydrox/Mg Hydrox/Simethicone 30 ml 07/30/22 16:40 Mylanta Suspension 30 Ml Cup PO Q2H PRN PRN Albuterol Sulfate 2.5 mg 07/30/22 16:40 08/01/22 06:10 Albuterol 2.5 Mg/3 Ml Inh Soln Vial UPD 2.5 mg Q2H PRN PRN Administration Albuterol/Ipratropium 3 ml 07/30/22 18:00 08/04/22 05:53 Albuterol/Ipratropium 3 Ml Upd Vial UPD 3 ml Q6H DRISS Administration Benzonatate 200 mg 07/30/22 20:00 08/03/22 19:02 Benzonatate 200 Mg Cap PO 200 mg TID DRISS Administration Budesonide/Formoterol Fumarate 2 puff 07/30/22 20:00 08/04/22 07:53 Budesonide/Formoterol 160/4.5 6 Gm 60 Puff Inh IH 2 puffs BID DRISS Administration Device 1 each 07/30/22 19:00 Inhaler, Assist Device DIRECTED DRISS Dimethicone/Zinc Oxide 0 gm 07/30/22 16:40 Patrick Protect Cream 142 Gm Tube TP PRN PRN Docusate Sodium 100 mg 07/30/22 16:40 Docusate Sodium 100 Mg Cap PO TID PRN PRN Enoxaparin Sodium 90 mg 07/31/22 10:00 08/04/22 09:41 Enoxaparin 100 Mg/Ml Syr SC Not Given Q12H DRISS Guaifenesin 1,200 mg 07/30/22 20:00 08/03/22 19:02 Guaifenesin 600 Mg Tabcr PO 1,200 mg BID DRISS Administration Cefepime HCl 2 gm/ Sodium 100 mls @ 200 mls/hr 07/30/22 20:00 08/04/22 04:13 Chloride IVPB 200 mls/hr Q8H DRISS Administration Sodium Chloride 500 mls @ 0 mls/hr 07/30/22 20:33 08/04/22 04:12 Saline 500ml Bag IV 0.1 mls/hr PRN PRN Administration As Directed IV Miscellaneous Supplies 1 each 07/30/22 10:30 Iv Access IV DIRECTED DRISS Lactobacillus Acidophilus/Casei 1 cap 08/01/22 08:30 08/03/22 09:42 L. Acidophilus, Casei, Rhamnosus Cap PO 1 cap DAILY DRISS Administration Magnesium Hydroxide 30 ml 07/30/22 16:40 Milk Of Magnesia 30 Ml Cup PO DAILY PRN PRN Melatonin 3 mg 07/31/22 22:00 08/03/22 21:28 Melatonin 3 Mg Tab PO 3 mg HS DRISS Administration Methylprednisolone Sodium Succinate 60 mg 07/30/22 20:00 08/04/22 10:02 Methylprednisolone Succ 125 Mg Vial IVP 60 mg BID DRISS Administration Pantoprazole Sodium 40 mg 07/31/22 07:30 08/03/22 09:48 Pantoprazole 40 Mg Tabcr PO 40 mg DAILY@0730 DRISS Administration Sodium Chloride 0 ml 07/30/22 10:26 08/04/22 10:03 Normal Saline Flush 10 Ml Syr IVP 10 ml PRN PRN Administration Sodium Chloride 3 ml 07/31/22 18:00 08/04/22 05:53 Sodium Chloride 0.9% For Inhalation 3 Ml Vial UPD 3 ml Q6H DRISS Administration Tiotropium [place] 2 puff 07/31/22 08:30 08/04/22 07:53 Tiotropium [place]-Respimat 10 Puff Inh IH 2 puffs DAILY DRISS Administration Trimethoprim/Sulfamethoxazole 1 tab 07/31/22 08:30 08/03/22 09:48 Sulfameth/Trimeth Ds Tab PO 1 tab DAILY DRISS Administration PFSH Active Problems Active Problems: Problem Status Onset Code Right leg DVT I82.401 Edema of right ankle M25.471 Discharge planning issues Z02.9 DVT prophylaxis Z29.9 Infiltrate of lung present on computed tomography R91.8 Dyspnea R06.00 COVID-19 long hauler manifesting chronic dyspnea R06.09, U09.9 Respiratory failure with hypoxia J96.91 Organizing pneumonia J84.89 COVID-19 U07.1 Obesity (BMI 30.0-34.9) E66.9 Sprain of left thumb S63.602A Surgical History Surgical History (Updated 07/30/22 @ 19:15 by Kathia Peterson MD) Colonoscopy - IV Sedation (10/05/16) H/O right wrist surgery x2 Tobacco Smoking/Tobacco Use Status: Never Passive smoking exposure: Yes Second hand exposure: Yes Alcohol Alcohol Intake: never Substance Use Substance use: Rarely Substance use type: marijuana Details: The patient takes a teaspoon of CBD/THC oil at night to help him sleep Vital Signs and Lab Results Vital Signs Most Recent Vital Signs in EMR: Most Recent Vital Signs Temp Pulse Resp BP Pulse Ox 36 C L 56 L 20 139/79 93 08/04/22 07:27 08/04/22 07:27 08/04/22 07:27 08/04/22 07:27 08/04/22 07:27 Lab Results 08/03/22 11:35 08/03/22 11:35 Blood Type / Crossmatch: No Data to Display Complete Blood Count: White Blood Count 16.46 10^3/uL (4.4-10.8) H 08/03/22 11:35 Red Blood Count 4.65 10^6/uL (4.36-5.78) 08/03/22 11:35 Hemoglobin 14.3 g/dL (13.5-17.5) 08/03/22 11:35 Hematocrit 43.0 % (40.0-50.0) 08/03/22 11:35 Platelet Count 201 10^3/uL (130-400) 08/03/22 11:35 Complete Metabolic Panel: Sodium 142 mmol/L (136-145) 08/03/22 11:35 Potassium 3.8 mmol/L (3.5-5.1) 08/03/22 11:35 Chloride 103 mmol/L (98-107) 08/03/22 11:35 Carbon Dioxide 32.5 mmol/L (21.0-32.0) H 08/03/22 11:35 BUN 28 mg/dL (7-18) H 08/03/22 11:35 Creatinine 1.1 mg/dL (0.70-1.30) 08/03/22 11:35 Est GFR (CKD-EPI 2020) 78.30 (mL/min/1.73m2) 08/03/22 11:35 Magnesium 2.3 mg/dL (1.8-2.4) 08/01/22 06:12 Calcium 9.3 mg/dL (8.5-10.1) 08/03/22 11:35 Albumin 2.8 g/dL (3.4-5.0) L 08/03/22 11:35 Glucose 119 mg/dL (74-106) H 08/03/22 11:35 C-Reactive Protein 0.64 mg/dL (0.0-0.3) H 08/03/22 11:35 Liver Function Panel: Alanine Aminotransferase (ALT/SGPT) 29 U/L (16-63) 08/03/22 11:35 Aspartate Amino Transf (AST/SGOT) 15 U/L (15-37) 08/03/22 11:35 Coagulation Panel: INR International Normalized Ratio 1.0 (0.9-1.1) 07/30/22 10:25 Prothrombin Time 9.9 sec (9.3-11.0) 07/30/22 10:25 Activated Partial Thromboplast Time 24.1 sec (21.5-31.9) 07/30/22 10:25 D-Dimer 1869 ng/mlFEU (<500) H 07/30/22 10:25 Cardiac Panel: Troponin I < 50 ng/L (<or=60) 07/30/22 NT-Pro-B Natriuret Pep 26 pg/mL (<300) 07/30/22 Arterial Blood Gas: No Data to Display Venous Blood Gas: No Data to Display Pancreas Panel: No Data to Display Thyroid Panel: No Data to Display Infectious Disease: Coronavirus (COVID-19)(PCR) Negative (Negative) 07/30/22 13:30 Coronavirus 2019 Source Nasopharynx 07/30/22 13:30 Influenza Virus Type A (PCR) Negative (Negative) 07/30/22 13:30 Influenza Virus Type B (PCR) Negative (Negative) 07/30/22 13:30 Respiratory Syncytial Virus (PCR) Negative (Negative) 07/30/22 13:30 Blood Cultures: No Data to Display Toxicology Panel: No Data to Display Imaging and Studies Imaging and Studies Study information below may be from another EMR and interpreted by another provider. Please see original notes in EMR for more complete details. EKG Summary: 07/30/2022: Exam: Resting ECG Reason for Exam: sob Patient Location: E HR:70 bpm ECG Measurements Heart Rate 70 AXIS OK 155 P 28 QRSd 99 QRS -21 QT 354 T33 QTc 384 Conclusion Sinus rhythm...normal P axis, V-rate 60- 99 I have reviewed and I agree with the emergency room physician's ECG interpretation. Echocardiogram Summary: 07/30/2022: Conclusion Normal left ventricular wall thickness and chamber size. Estimated ejection fraction is 55 to 60%. Wall motion is normal Normal right ventricular size and systolic function The atria are normal in size There is no structural or hemodynamically significant valvular disease Estimated right ventricular systolic pressure is 33 mmHg Anesthesia Assessment and Plan Anesthesia History Personal History: No History of Anesthesia Complications Family History: No Family History of Anesthesia Complications Exercise Tolerance Exercise Tolerance: Metabolic Equivalents<4 Pertinent Negatives Pertinent Negatives: No Symptoms of GERD and No Major Cardiovascular Symptoms or Complaints Cardiac & Pulmonary Exam Cardiac Exam: Normal S1/S2 Heart Sounds Pulmonary Exam: Other (Baseline SOB, on 8/L) Implantable Cardiac Device Does patient have a Pacemaker or an ICD?: No Airway Exam Known Difficult Airway: No Mallampati Class: 2 Mouth Opening: Normal (> 3cm) Thyromental Distance: Greater than 3 cm Neck Range of Motion: Full ROM Neck Circumference: Normal Teeth Condition: Normal Dentition ASA Classification ASA Score: ASA 3 Emergency Case?: No NPO Status NPO Status: NPO Clears >2 hours, Solids >8 hours Anesthesia Plan Resuscitation Status: Full Code Anesthesia Technique: General Anesthesia Airway Planned: Endotracheal Tube Monitors Used: Standard Monitors Preoperative Comments:: [employer] was down, updating preop from paper record.
[2022-08-04 11:06] LABS: TB Interpretation Negative (Negative)
[2022-08-04] MEDS: Lactated Ringers 1,000 ML 30 ML IV (12:22)
--- NOTE | 2022-08-04 12:40 | PAPNONF_PTH ---
PATIENT: Shawn Ospina LOC: ICU U#:[id number] AGE/SX: 56/M ROOM: ICU.222 RE07/30/[address]: Kathia Peterson : 1965 BED: A DIS: 08/07/2022 SPEC #: [id number] RECD: 08/04/22 17:52 STATUS: MILEY REQ #: [id number] BASIA: 08/04/22 12:[address]: Kathia Peterson DEPT: [facility] Cytology RECD BY: Luanne Encarnacion ENTERED: 08/04/22 17:53 SP TYPE: BEBETO ONTIVEROS DR: Nathaniel Gallagher, COMFORT FILLER Tissues: 1 - BODY FLUID CYTO(NOT S/U/N/EM)[facility] Procedures: BODY FLUID CYTO(NOT SPU/UR/NIP/ENDOM)[facility] SPECIAL STAIN 1 Comments: [id number] (TV = 10 ml, SENT FRESH) (REFRIGERATED)
[2022-08-04] MEDS: Lidocaine 1% Pres-Free 30 ML VIAL (12:48)
--- NOTE | 2022-08-04 13:54 | W.ANESPOSTOP ---
Postoperative Evaluation Date, Time and Location Date Performed: 08/04/22 Time Performed: 13:54 Patient Location: PACU Vital Signs Most Recent Imported Vital Signs: Most Recent Vital Signs Temp Pulse Resp BP Pulse Ox 36.6 C 70 28 H 104/65 96 08/04/22 13:45 08/04/22 13:45 08/04/22 13:45 08/04/22 13:45 08/04/22 13:45 Pain Score Most Recent Pain Score: Most Recent Pain Score Pain Level [Generalized] 0 08/02/22 16:00 Pain Level 0 08/04/22 13:45 Assessment Mental Status: Awake (Alert & Oriented to Patient Baseline) Airway and Respiratory Function: Patient has been admitted and is receiving care as an inpatient Cardiovascular Function: Hemodynamically Stable Hydration Status: Adequately Hydrated Nausea & Vomiting: No Nausea or Vomiting Pain: Pt. Denies Any Pain Peripheral Nerve Block: Patient did not receive a nerve block
--- NOTE | 2022-08-04 14:02 | W.PM.OP ---
Date of service: 08/04/22 Time of Service: 12:00 Operative Note Operative Note PRE-OP DIAGNOSIS: Abnormal Chest CT Refer to Anesthesia Record Procedure Description: Bronchoscopy Indication:Worsening respiratory failure, abnormal chest CT Procedure performed: Flexible bronchoscopy with BAL Sedation plan: General anesthesia Informed consent was obtained after the risks and benefits or the procedure were discussed. Patient was sedated and intubated by anesthesia. A proper and complete OR compliant time out was performed. The therapeutic 6.2mm Olympus bronchoscope was inserted through the endotracheal tube. The bronchoscope was inserted into the airways, where 3cc in total of 1% topical lidocaine was used the anesthetize the airways. The trachea was midline and without lesion or injury. The mucosa appeared normal and there were no signs of tracheomalacia. There were diverticuli present throughout the airways. The gurvinder was sharp. All bronchial subsegments were visualized within each lobe and showed normal mucosa with minimal white and easy to clear secretions. A bronchoalveolar lavage was performed in the KIRSTEN. A total of 120cc of saline was administered with a return of 40cc. The fluid was slightly cloudy in appearance with visible mucus plugs. The bronchoscope was then removed and the case terminated. The patient was taken to PACU in stable condition but requiring HFNC 60LPM, 75% at the end of the case. Samples collected:KIRSTEN BAL, bronchial washings Testing ordered:cell diff, cytopathology and silver stain, bacterial, fungal and AFB cultures, extended respiratory viral panel Complications: worsened post operative hypoxia. Recommend ICU observation overnight with CPAP [id number]. Manju Torres MD Pulmonary & Critical Care Medicine
[2022-08-04 15:28] LABS: ANA Interpretation Positive (Negative); ANA Titer Pattern 1:320 Speckled
--- NOTE | 2022-08-04 16:59 | PDOC.CMPRO ---
- If Service Date Differs Date of service: 08/04/22 Time of Service: 16:59 Care Management Progress Note S/O: Shawn was not in his room when CM attempted to visit, as he was in the OR having a bronchoscopy. CM will continue to follow. A: Shawn is a 56 year old male admitted to [facility] on 07/30/22 for organizing pneumonia. P: Shawn may transfer to [facility] if accepted, and will transport via EMS vs return home once medically cleared. He does not feel that services are indicated at this time, as he has support from family and friends. He will follow up with his PCP and discharge plan of care. CM will continue to follow.
--- NOTE | 2022-08-04 17:21 | PGE_ITS ---
Date of Service Date of service: 08/04/22 Time of Service: 17:21 Assessment and Plan Assessment and plan (1) Organizing pneumonia: Status: Acute Assessment and plan: blood cultures 07/30: NGTD MRSA screen neg. legionella urine antigen: neg. urine strep pneumoniae antigen: pending fungitell pending histoplasmosis studies pending blastomyces studies pending respiratory viral panel negative (rhinovirus, RSV, parainfluenza, influenza A and influenza B, SARS-COV2). PARAM positive at 1:320 speckled, anti-DS DNA, SSA, SSB, Smiley, scleroderma 70, and ANCA are all pending. inflammatory markers are improving: CRP 6.06>2.79>1.36>0.64; however his CT findings on admission were worse than over a month ago from 06/17/22. continue Cefepime; now off vancomycin.. continue high dose corticosteroids (solumedorol 60 mg iv q12h), encourage pulmonary toiletry (IS, acapella), continue aerosolized bronchodilators. S/P bronchoscopy and BAL today. Bacterial, fungal cultures, AFB, cytology and viral panel and silver methenamine stain were all sent and are pending. The patient never received coverage for atyicals w/ doxycycline or azithromycin. However, given that he is improving w/out this and he had levaquin as outpatient, Dr. Balderrama indicated that as he is improving, she does not feel it necessary to add for atypicals however, if he plateaus or worsens, then she would recommend adding atypical coverage. Dr. Torres was in agreement w/ this plan. Professional time spent interviewing and examining patient, discussion of goals of care with hospital team (care management, nursing and consulting professionals) was 15 minutes. (2) Right leg DVT: Status: Acute Assessment and plan: continue lovenox tonight (was held for bronchoscopy this mornning). Tomorrow he can go on a DOAC and stop the lovenox (3) COVID-19 long hauler manifesting chronic dyspnea: Status: Acute Assessment and plan: As above (4) Discharge planning issues: Status: Acute Assessment and plan: Full code Continues to require hospitalization. Subjective Subjective Interval history since last seen: Patient underwent fiberoptic bronchoscopy w/ BAL of his KIRSTEN. Post op he had wo rsening hypoxemia and required HFNC. He will recover in the ICU overnight. I saw him after his return to ICU. He is doing well. He does not feel anymore dyspneic than he did prior to the bronchoscopy. In fact he seems less dyspneic and talking to me in lengthy sentences w/out having to stop to catch his breath. Exam Narrative Exam Narrative: Shawn is sitting up in bed asking for dinner. he already has had a kalpana ileana and yogurt without any difficulty Lungs: diffuse fine rales, unchanged from prior Heart: RRR Abdomen: soft, nontender Objective Last Vital Signs Temp 37.2 C 08/04/22 16:00 Pulse 87 08/04/22 16:30 Resp 19 08/04/22 16:30 BP 106/71 08/04/22 16:30 Pulse Ox 98 08/04/22 16:30 Laboratory Results - last 24 hr 08/02/22 06:12 TB Test Ag - Nil 1 0.00 TB Test Ag - Nil 2 0.00 TB Test (QFT) Interp Negative Time Spent with Patient Time Spent with Patient: <25 minutes Time was spent: preparing to see the patient(eg.review tests) and care coordination
[2022-08-04] MEDS: Sulfameth/Trimeth DS TAB 1 TAB PO (17:26)
[2022-08-04] MEDS: Benzonatate 200 MG CAP PO ×2 (17:26→20:11)
[2022-08-04] MEDS: Enoxaparin 100 MG/ML SYR 90 MG SC (20:11)
[2022-08-04] MEDS: guaiFENesin 600 MG TABCR 1200 MG PO (20:11)
[2022-08-04] MEDS: Melatonin 3 MG TAB PO (21:06)
[2022-08-05] VITALS (89 sets, daily range): BP systolic 97–130; BP diastolic 61–78; PULSE 47–90; RESP 5–43; TEMP 31–37.4; O2SAT 90–97
[2022-08-05] MEDS: CEFEPIME 2 GM in Normal Saline 100 ML IVPB ×3 (02:53→18:38)
[2022-08-05] MEDS: Sodium Chloride 0.9% for Inhalation 3 ML VIAL UPD ×3 (06:23→18:24)
[2022-08-05] MEDS: Albuterol/Ipratropium 3 ML UPD VIAL UPD ×3 (06:23→18:22)
--- NOTE | 2022-08-05 08:04 | RESPIRATORY ---
When RT arrived this morning pt's Airvo HHF system had been changed to Flow 17L, FiO2 95% with no documentation. RT will change back to appropriate settings.
[2022-08-05] MEDS: Budesonide/Formoterol 160/4.5 6 GM 60 PUFF INH IH ×2 (08:13→20:40)
[2022-08-05] MEDS: Tiotropium Bromide-Respimat 10 PUFF INH 2 PUFF IH (08:13)
--- NOTE | 2022-08-05 08:49 | PGE_ITS ---
Date of Service Date of service: 08/05/22 Time of Service: 08:49 Assessment and Plan Assessment and plan (1) Organizing pneumonia: Status: Acute Assessment and plan: blood cultures 07/30: NGTD, currently on cefepime day #7 (he will be treated for at least 10 days empirically) MRSA screen neg. legionella urine antigen: neg. urine strep pneumoniae antigen: neg. fungitell (Beta D Glucan) neg. histoplasmosis urine antigen: neg blastomyces antigen: neg. respiratory viral panel negative (rhinovirus, RSV, parainfluenza, influenza A and influenza B, SARS-COV2). PARAM positive at 1:320 speckled, anti-DS DNA, SSA, SSB, Smiley, scleroderma 70, and ANCA are all pending. TB quantiferon: neg. inflammatory markers are improving: CRP 6.06>2.79>1.36>0.64; however his CT findings on admission were worse than over a month ago from 06/17/22. continue Cefepime; now off vancomycin.. continue high dose corticosteroids (solumedorol 60 mg iv q12h), encourage pulmonary toiletry (IS, acapella), continue aerosolized bronchodilators. S/P bronchoscopy and BAL today. cell count, Bacterial, fungal cultures, AFB, cytology and viral panel and silver methenamine stain were all sent and are pend ing. The patient never received coverage for atyicals w/ doxycycline or azithromycin. However, given that he is improving w/out this and he had levaquin as outpatient, Dr. Balderrama indicated that as he is improving, she does not feel it necessary to add for atypicals however, if he plateaus or worsens, then she would recommend adding atypical coverage. Dr. Torres was in agreement w/ this plan. I think that given the severity of his lung disease that having him on a macrolide would not be the wrong thing to do. He is hemodynamically and respiratory stable and can transfer to med/surgical floor although his respiratory condition is such that he is not ready for discharge and still needs hospitalization. Professional time spent interviewing and examining patient, discussion of goals of care with hospital team (care management, nursing and consulting professionals) was 30minutes. (2) Right leg DVT: Status: Acute Assessment and plan: continue lovenox tonight (was held for bronchoscopy this mornning). I have changed his lovenox to Apixaban 10 mg bid x 7d then he can decrease to 5 mg bid. He had his lovenox this morning and therefore he will start tonight (3) COVID-19 long hauler manifesting chronic dyspnea: Status: Acute Assessment and plan: As above (4) Discharge planning issues: Status: Acute Assessment and plan: Full code Continues to require hospitalization. Subjective Subjective Interval history since last seen: Patient states that he coughed up a lot of thick green mucous this morning. Overall he feels better since the bronchoscopy. Not dyspneic at rest but w/ activity such as getting out of bed he gets very dyspneic. Currently SPO2 is 96% on HFNC at 40 lpm and FIO2 of 70%. Exam Narrative Exam Narrative: Shawn is sitting up in his bed just having finished his breakfast. He is talking to the phone. He had no acute respiratory distress able to speak in complete sentences. Lungs scattered diffuse fine rales Heart is regular rate and rhythm Abdomen obese soft and nontender Extremities without edema Objective Last Vital Signs Temp 36.7 C 08/05/22 04:16 Pulse 50 L 08/05/22 05:01 Resp 20 08/05/22 05:01 BP 119/61 08/05/22 05:01 Pulse Ox 96 08/05/22 05:01 Laboratory Results - last 24 hr 07/31/22 08/02/22 13:10 06:12 PARAM Titer 1:320 Speckled PARAM Titer 2 Not Applicable PARAM Titer 3 Not Applicable PARAM Interpretation Positive A TB Test Ag - Nil 1 0.00 TB Test Ag - Nil 2 0.00 TB Test (QFT) Interp Negative Time Spent with Patient Time Spent with Patient: 25-34 minutes Time was spent: preparing to see the patient(eg.review tests), referring, communicating with other health caregivers homecare (Ms. Mason, pulmonary), indepentently interpreting results, counseling the patient and care coordination
[2022-08-05] MEDS: Benzonatate 200 MG CAP PO ×3 (08:56→20:43)
[2022-08-05] MEDS: Pantoprazole 40 MG TABCR PO (08:56)
[2022-08-05] MEDS: methylPREDNISolone SUCC 125 MG VIAL 60 MG IVP ×2 (08:56→20:43)
[2022-08-05] MEDS: guaiFENesin 600 MG TABCR 1200 MG PO ×2 (08:56→20:42)
[2022-08-05] MEDS: Apixaban 5 MG TAB 10 MG PO ×2 (10:48→20:41)
[2022-08-05] MEDS: Azithromycin 250 MG TAB 500 MG PO (10:48)
--- NOTE | 2022-08-05 11:44 | CMPROGNOTE_ITS ---
- If Service Date Differs Date of service: 08/05/22 Time of Service: 11:44 Care Management Progress Note S/O: Shawn was not available when CM attempted to visit with him today. He was transferred to the ICU yesterday, after his bronchoscopy, and he was on high flow O2. Today he was transferred to [facility] [place], as he is hemodynamically stable, although he remains on high flow O2. He will continue to be monitored closely. CM will continue to follow. A: Shawn is a 56 year old male admitted to [facility] on 07/30/22 for organizing pneumonia. P: Shawn may transfer to [facility] if accepted, and will transport via EMS vs return home once medically cleared. He does not feel that HH services are indicated at this time, as he has support from family and friends. He will follow up with his PCP and discharge plan of care. CM will continue to follow.
--- NOTE | 2022-08-05 12:59 | PGE_ITS ---
Date of Service Date of service: 08/05/22 Time of Service: 09:00 Assessment and Plan Assessment and plan (1) Infiltrate of lung present on computed tomography: Status: Acute (2) Respiratory failure with hypoxia: Status: Acute (3) Organizing pneumonia: Status: Acute Assessment and plan: 56 year old male with worsening pulmonary infiltrates since May (s/p COVID) who has not responded to three course of prednisone and two courses of antibiotics. He has been on steroids for months and although was on ppx for PJP, it is possible he has a fungal infection that is causing this worsening. Blasto and histo urine antigens have been collected, as has a Fungitell, all of which are negative. Rheumatologic workup is pending. He underwent bronchoscopy with BAL by Dr Torres yesterday and required HFNC in PACU. He was transferred to ICU for overnight observation. Today he is doing well with no acute complaints. Plan to transfer out of ICU today. Hypoxic respiratory failure - supplemental O2 for sats >90% - wean off HFNC as tolerated Abnormal chest CT - awaiting bronchoscopy BAL results: cell diff, cultures, cytology, respiratory viral panel - histo, blasto and fungitell negative - blood cultures negative - anti-DNA, aspergillus Ag, ANCA, Scl-70, SSA/SSB, anti-Sm pending Exam Resp Effort & Inspection: normal respiratory effort and able to speak in complete sentences Auscultation: rales bilaterally at the base, no rhonchi and no wheezes Objective Last Vital Signs Temp 97.9 F 08/05/22 09:15 Pulse 68 08/05/22 09:01 Resp 33 H 08/05/22 09:35 BP 110/68 08/05/22 09:01 Pulse Ox 95 08/05/22 09:35 Laboratory Results - last 24 hr 07/31/22 13:10 PARAM Titer 1:320 Speckled PARAM Titer 2 Not Applicable PARAM Titer 3 Not Applicable PARAM Interpretation Positive A Time Spent with Patient Time Spent with Patient: 25-34 minutes Time was spent: preparing to see the patient(eg.review tests), obtaining and/or reviewing separately otained hiistory, referring, communicating with other health pharmacy care coordinator and indepentently interpreting results
[2022-08-05 15:16] LABS: SS-B (La) Ab, IgG 2.2 Units (<20.0)
[2022-08-05] MEDS: Sulfameth/Trimeth DS TAB 1 TAB PO (15:27)
[2022-08-05 15:39] LABS: SS-A Antibody 1.3 Units (<20.0)
[2022-08-05 16:23] LABS: ANCA Interpretation Negative (Negative)
[2022-08-05 18:04] LABS: Scl 70 Antibodies, IgG <0.2 U
[2022-08-05] MEDS: Melatonin 3 MG TAB PO (22:10)
[2022-08-05 22:22] LABS: Adenovirus DNA Result Negative (Negative); Metapneumovirus RNA Result Positive (Negative); Parainfluenza Type1 RNA Result Negative (Negative); Parainfluenza Type2 RNA Result Negative (Negative); Parainfluenza Type3 RNA Result Negative (Negative); Parainfluenza Type4 RNA Result Negative (Negative); Rhinovirus RNA Result Negative (Negative)
[2022-08-06] VITALS (21 sets, daily range): BP systolic 109–133; BP diastolic 72–84; PULSE 62–112; RESP 7–42; TEMP 31–37.1; O2SAT 69–96
[2022-08-06] MEDS: Albuterol/Ipratropium 3 ML UPD VIAL UPD ×4 (00:52→17:51)
[2022-08-06] MEDS: Sodium Chloride 0.9% for Inhalation 3 ML VIAL UPD ×2 (00:53→06:05)
[2022-08-06] MEDS: CEFEPIME 2 GM in Normal Saline 100 ML IVPB ×3 (00:53→17:32)
--- NOTE | 2022-08-06 06:57 | PGE_ITS ---
Assessment and Plan Assessment and plan (1) Infiltrate of lung present on computed tomography: Status: Acute (2) Respiratory failure with hypoxia: Status: Acute (3) Human metapneumovirus (hMPV) pneumonia: Status: Acute (4) Organizing pneumonia: Status: Acute Assessment and plan: This is a 56 yo with worsening clinical and radiologic organizing pneumonia. Bronchoscopy performed with BAL successfully, however patient did one night observation in ICU due to transient worsening of his hypoxia. He is now back on nasal cannula and out of the ICU. His BAL found no malignancy, negative silver stain and a pattern of acute inflammation. His extended viral panel did return with metapneumovirus. I think that his organizing pneumonia has been worsening with time and he now has contracted an additional viral infection that has acutely exacerbated his respiratory decompensation. Ribavirin does have anti- viral activity against human metapneumovirus and it may be worth starting this to see if he improves. Given the inflammatory pattern of the BAL, I will recommend a pulse dose steroid regimen for 3 days in order to see if this helps (now that fungal infection has been thoroughly ruled out). Pharmacy has to order in the ribavirin so will start this tomorrow once we have it. Hypoxic respiratory failure - supplemental O2 for sats >90% - wean off HFNC as tolerated Organizing pneumonia - BAL with 60% neutrophils, no bacterial or fungal infections seen - recommend 500mg IV methylprednisilone bid for 3 days, followed by weaning to 40mg daily over 3 days - he is already on Bactrim ppx - most rheumatologic testing negative - some tests still pending Human metapneumovirus pneumonia - recommend trial of ribavirn 600mg bid for 7-10 days General Date Of Service Date of service: 08/06/22 Time of Service: 06:57 Reason for Consult: Abnormal chest CT Subjective 24 Hour Events: BAL returned: negative stain for fungus, AFB and bacteria. Silver stain negative. No malignant cells. Cell differential with 60% neutrophils, 20% macrophages (acute inflammation pattern). Extended viral panel positive for metapneumovirus. Note Note: Shawn has improved since his bronchoscopy but feels overall unchanged. Exam Narrative Exam Narrative: Gen:?in mild to moderate respiratory distress at rest HENT:?PERRL Chest:?Mild to moderate respiratory distress, crackles present throughout Heart:?regular rate and rhythym, no murmurs, rubs or gallops Abdomen:?Non-distended, soft, non tender Extremities:?No clubbing, edema, cyanosis, rashes Neuro:?AAOx3 , non focal Psych:?cooperative, appropriate mental affect Objective Last Vital Signs Temp 36.7 C 08/05/22 22:00 Pulse 80 08/05/22 22:00 Resp 16 08/06/22 01:46 BP 111/67 08/05/22 22:00 Pulse Ox 96 08/06/22 01:46 Laboratory Results - last 24 hr 08/02/22 06:12 SS-A Antibody 1.3 SS-B Antibody 2.2 Sm (Smiley) Antibody 2.0 Results Medications Medications: Active Medications Generic Name Dose Route Start Last Admin Trade Name Freq PRN Reason Stop Dose Admin Acetaminophen 0 mg 07/30/22 16:40 Acetaminophen 325 Mg Tab PO Q4H PRN PRN Al Hydrox/Mg Hydrox/Simethicone 30 ml 07/30/22 16:40 Mylanta Suspension 30 Ml Cup PO Q2H PRN PRN Albuterol Sulfate 2.5 mg 07/30/22 16:40 08/01/22 06:10 Albuterol 2.5 Mg/3 Ml Inh Soln Vial UPD 2.5 mg Q2H PRN PRN Administration Albuterol/Ipratropium 3 ml 07/30/22 18:00 08/06/22 06:04 Albuterol/Ipratropium 3 Ml Upd Vial UPD 3 ml Q6H DRISS Administration Apixaban 10 mg 08/05/22 09:45 08/05/22 20:41 Apixaban 5 Mg Tab PO 08/11/22 20:01 10 mg BID DRISS Administration Azithromycin 250 mg 08/06/22 08:30 Azithromycin 250 Mg Tab PO 08/09/22 08:31 DAILY DRISS Benzonatate 200 mg 07/30/22 20:00 08/05/22 20:43 Benzonatate 200 Mg Cap PO 200 mg TID DRISS Administration Budesonide/Formoterol Fumarate 2 puff 07/30/22 20:00 08/05/22 20:40 Budesonide/Formoterol 160/4.5 6 Gm 60 Puff Inh IH 2 puffs BID DRISS Administration Device 1 each 07/30/22 19:00 Inhaler, Assist Device DIRECTED [facility] Dimethicone/Zinc Oxide 0 gm 07/30/22 16:40 Patrick Protect Cream 142 Gm Tube TP PRN PRN Docusate Sodium 100 mg 07/30/22 16:40 Docusate Sodium 100 Mg Cap PO TID PRN PRN Guaifenesin 1,200 mg 07/30/22 20:00 08/05/22 20:42 Guaifenesin 600 Mg Tabcr PO 1,200 mg BID DRISS Administration Sodium Chloride 500 mls @ 0 mls/hr 07/30/22 20:33 08/04/22 16:37 Saline 500ml Bag IV 0.1 mls/hr PRN PRN Infusion As Directed Cefepime HCl 2 gm/ Sodium 100 mls @ 200 mls/hr 08/05/22 02:00 08/06/22 00:53 Chloride IVPB 100 mls/hr Q8H DRISS Administration IV Miscellaneous Supplies 1 each 07/30/22 10:30 Iv Access IV DIRECTED DRISS Lactobacillus Acidophilus/Casei 1 cap 08/01/22 08:30 08/05/22 08:56 L. Acidophilus, Casei, Rhamnosus Cap PO 1 cap DAILY DRISS Administration Magnesium Hydroxide 30 ml 07/30/22 16:40 Milk Of Magnesia 30 Ml Cup PO DAILY PRN PRN Melatonin 3 mg 07/31/22 22:00 08/05/22 22:10 Melatonin 3 Mg Tab PO 3 mg HS DRISS Administration Methylprednisolone Sodium Succinate 60 mg 07/30/22 20:00 08/05/22 20:43 Methylprednisolone Succ 125 Mg Vial IVP 60 mg BID DRISS Administration Pantoprazole Sodium 40 mg 07/31/22 07:30 08/05/22 08:56 Pantoprazole 40 Mg Tabcr PO 40 mg DAILY@0730 DRISS Administration Sodium Chloride 0 ml 07/30/22 10:26 08/04/22 10:03 Normal Saline Flush 10 Ml Syr IVP 10 ml PRN PRN Administration Sodium Chloride 3 ml 07/31/22 18:00 08/06/22 06:05 Sodium Chloride 0.9% For Inhalation 3 Ml Vial UPD 3 ml Q6H DRISS Administration Tiotropium Lester 2 puff 07/31/22 08:30 08/05/22 08:13 Tiotropium Lester-Respimat 10 Puff Inh IH 2 puffs DAILY DRISS Administration Trimethoprim/Sulfamethoxazole 1 tab 08/05/22 16:00 08/05/22 15:27 Sulfameth/Trimeth Ds Tab PO 1 tab Q24H DRISS Administration Allergies bee venom protein (honey bee) Allergy (Unknown, Verified 07/30/22 10:44) Labs 08/03/22 11:35 08/03/22 11:35 Labs: 08/03/22 09:35 Sputum - Expectorated Sputum Culture - Preliminary Normal Beba 08/03/22 09:35 Sputum - Expectorated Gram Stain - Final 07/30/22 13:44 Blood Blood Culture - Final NO GROWTH 120 HOURS 07/30/22 13:30 Blood Blood Culture - Final NO GROWTH 120 HOURS 07/30/22 17:40 Sputum Sputum Culture - Final Normal Beba 07/30/22 17:40 Sputum Gram Stain - Final 07/31/22 14:23 Nose MRSA Screen - Final Laboratory Tests Range/Units 07/30/22 07/30/22 07/30/22 10:25 10:25 10:25 WBC (4.4-10.8) 10^3/uL 13.96 H RBC (4.36-5.78) 10^6/uL 4.80 Hgb (13.5-17.5) g/dL 15.1 Hct (40.0-50.0) % 46.1 MCV (80-95) fL 96 H MCH (27.0-33.0) pg 31.5 MCHC (32.0-36.0) % 32.8 RDW (11.8-14.1) % 13.8 Plt Count (130-400) 10^3/uL 196 MPV (8.0-11.0) fL 7.9 L Immature Gran % 0.7 Neutrophils % 70.5 Lymphocytes % 19.2 Monocytes % 7.5 Eosinophils % 1.9 Basophils % 0.2 Nucleated RBC % (0.0-0.3) % 0.0 Absolute Neutrophils (1.2-6.7) 10^3/uL 9.84 H Absolute Lymphocytes (1.2-3.4) 10^3/uL 2.68 Absolute Monocytes (0.1-0.8) 10^3/uL 1.05 H Absolute Eosinophils (0.0-0.7) 10^3/uL 0.27 Absolute Basophils (0.0-0.2) 10^3/uL 0.03 ESR (0-20) mm/hr PT (9.3-11.0) sec 9.9 INR (0.9-1.1) 1.0 APTT (21.5-31.9) sec 24.1 D-Dimer (<500) ng/mlFEU 1869 H Sodium (136-145) mmol/L 139 Potassium (3.5-5.1) mmol/L 3.2 L Chloride (98-107) mmol/L 102 Carbon Dioxide (21.0-32.0) mmol/L 32.9 H Anion Gap (3-11) mmol/L 4.1 BUN (7-18) mg/dL 16 Creatinine (0.70-1.30) mg/dL 1.3 Est GFR (CKD-EPI 2020) (mL/min/1.73m2) 64.07 Glucose (74-106) mg/dL 92 Calcium (8.5-10.1) mg/dL 8.9 Magnesium (1.8-2.4) mg/dL 2.1 Total Bilirubin (0.2-1.0) mg/dL 0.7 AST (15-37) U/L 20 ALT (16-63) U/L 25 Alkaline Phosphatase (46-116) U/L 75 Troponin I (<or=60) ng/L < 50 C-Reactive Protein (0.0-0.3) mg/dL NT-Pro-B Natriuret Pep (<300) pg/mL 26 Total Protein (6.4-8.2) g/dL 6.7 Albumin (3.4-5.0) g/dL 2.9 L Procalcitonin ng/mL PARAM Titer PARAM Titer 2 PARAM Titer 3 PARAM Interpretation (Negative) SS-A Antibody (<20.0) Units SS-B Antibody (<20.0) Units Sm (Smiley) Antibody (<20.0) Units Adenovirus DNA (Negative) Blastomyces Ag Result Blastomyces Ag Comment ng/mL COVID-19 Source SARS-CoV-2 (PCR) (Negative) Urine Histoplasma Ag U Histoplasma Ag Index ng/mL Human Metapneumovir RNA (Negative) Influenza Type A (PCR) (Negative) Influenza Type B (PCR) (Negative) Urine Legionella Ag (Negative) M. pneumoniae Source M. pneumoniae (PCR) Parainfluenza 1 (PCR) (Negative) Parainfluenza 2 (PCR) (Negative) Parainfluenza 3 (PCR) (Negative) Parainfluenza 4 (PCR) (Negative) RSV (PCR) (Negative) Resp Viral Spec Desc Rhinovirus (PCR) (Negative) Ur Strep pneumoniae Ag (Negative) TB Test Ag - Nil 1 IU/mL TB Test Ag - Nil 2 IU/mL TB Test (QFT) Interp (Negative) B-(1,3)-D-Glucan Quant (<60 pg/mL) pg/mL B-(1,3)-D-Glucan Qual (Negative) Range/Units 07/30/22 07/30/22 07/30/22 10:25 13:30 13:30 WBC (4.4-10.8) 10^3/uL RBC (4.36-5.78) 10^6/uL Hgb (13.5-17.5) g/dL Hct (40.0-50.0) % MCV (80-95) fL MCH (27.0-33.0) pg MCHC (32.0-36.0) % RDW (11.8-14.1) % Plt Count (130-400) 10^3/uL MPV (8.0-11.0) fL Immature Gran % Neutrophils % Lymphocytes % Monocytes % Eosinophils % Basophils % Nucleated RBC % (0.0-0.3) % Absolute Neutrophils (1.2-6.7) 10^3/uL Absolute Lymphocytes (1.2-3.4) 10^3/uL Absolute Monocytes (0.1-0.8) 10^3/uL Absolute Eosinophils (0.0-0.7) 10^3/uL Absolute Basophils (0.0-0.2) 10^3/uL ESR (0-20) mm/hr PT (9.3-11.0) sec INR (0.9-1.1) APTT (21.5-31.9) sec D-Dimer (<500) ng/mlFEU Sodium (136-145) mmol/L Potassium (3.5-5.1) mmol/L Chloride (98-107) mmol/L Carbon Dioxide (21.0-32.0) mmol/L Anion Gap (3-11) mmol/L BUN (7-18) mg/dL Creatinine (0.70-1.30) mg/dL Est GFR (CKD-EPI 2020) (mL/min/1.73m2) Glucose (74-106) mg/dL Calcium (8.5-10.1) mg/dL Magnesium (1.8-2.4) mg/dL Total Bilirubin (0.2-1.0) mg/dL AST (15-37) U/L ALT (16-63) U/L Alkaline Phosphatase (46-116) U/L Troponin I (<or=60) ng/L C-Reactive Protein (0.0-0.3) mg/dL NT-Pro-B Natriuret Pep (<300) pg/mL Total Protein (6.4-8.2) g/dL Albumin (3.4-5.0) g/dL Procalcitonin ng/mL < 0.1 PARAM Titer PARAM Titer 2 PARAM Titer 3 PARAM Interpretation (Negative) SS-A Antibody (<20.0) Units SS-B Antibody (<20.0) Units Sm (Smiley) Antibody (<20.0) Units Adenovirus DNA (Negative) Negative Blastomyces Ag Result Blastomyces Ag Comment ng/mL COVID-19 Source Nasopharynx SARS-CoV-2 (PCR) (Negative) Negative Urine Histoplasma Ag U Histoplasma Ag Index ng/mL Human Metapneumovir RNA (Negative) Negative Influenza Type A (PCR) (Negative) Negative Influenza Type B (PCR) (Negative) Negative Urine Legionella Ag (Negative) M. pneumoniae Source M. pneumoniae (PCR) Parainfluenza 1 (PCR) (Negative) Negative Parainfluenza 2 (PCR) (Negative) Negative Parainfluenza 3 (PCR) (Negative) Negative Parainfluenza 4 (PCR) (Negative) Negative RSV (PCR) (Negative) Negative Resp Viral Spec Desc Not Applicable Rhinovirus (PCR) (Negative) Negative Ur Strep pneumoniae Ag (Negative) TB Test Ag - Nil 1 IU/mL TB Test Ag - Nil 2 IU/mL TB Test (QFT) Interp (Negative) B-(1,3)-D-Glucan Quant (<60 pg/mL) pg/mL B-(1,3)-D-Glucan Qual (Negative) Range/Units 07/30/22 07/31/22 07/31/22 17:40 05:53 05:54 WBC (4.4-10.8) 10^3/uL RBC (4.36-5.78) 10^6/uL Hgb (13.5-17.5) g/dL Hct (40.0-50.0) % MCV (80-95) fL MCH (27.0-33.0) pg MCHC (32.0-36.0) % RDW (11.8-14.1) % Plt Count (130-400) 10^3/uL MPV (8.0-11.0) fL Immature Gran % Neutrophils % Lymphocytes % Monocytes % Eosinophils % Basophils % Nucleated RBC % (0.0-0.3) % Absolute Neutrophils (1.2-6.7) 10^3/uL Absolute Lymphocytes (1.2-3.4) 10^3/uL Absolute Monocytes (0.1-0.8) 10^3/uL Absolute Eosinophils (0.0-0.7) 10^3/uL Absolute Basophils (0.0-0.2) 10^3/uL ESR (0-20) mm/hr PT (9.3-11.0) sec INR (0.9-1.1) APTT (21.5-31.9) sec D-Dimer (<500) ng/mlFEU Sodium (136-145) mmol/L Potassium (3.5-5.1) mmol/L Chloride (98-107) mmol/L Carbon Dioxide (21.0-32.0) mmol/L Anion Gap (3-11) mmol/L BUN (7-18) mg/dL Creatinine (0.70-1.30) mg/dL Est GFR (CKD-EPI 2020) (mL/min/1.73m2) Glucose (74-106) mg/dL Calcium (8.5-10.1) mg/dL Magnesium (1.8-2.4) mg/dL Total Bilirubin (0.2-1.0) mg/dL AST (15-37) U/L ALT (16-63) U/L Alkaline Phosphatase (46-116) U/L Troponin I (<or=60) ng/L C-Reactive Protein (0.0-0.3) mg/dL NT-Pro-B Natriuret Pep (<300) pg/mL Total Protein (6.4-8.2) g/dL Albumin (3.4-5.0) g/dL Procalcitonin ng/mL PARAM Titer PARAM Titer 2 PARAM Titer 3 PARAM Interpretation (Negative) SS-A Antibody (<20.0) Units SS-B Antibody (<20.0) Units Sm (Smiley) Antibody (<20.0) Units Adenovirus DNA (Negative) Blastomyces Ag Result Blastomyces Ag Comment ng/mL COVID-19 Source SARS-CoV-2 (PCR) (Negative) Urine Histoplasma Ag U Histoplasma Ag Index ng/mL Human Metapneumovir RNA (Negative) Influenza Type A (PCR) (Negative) Influenza Type B (PCR) (Negative) Urine Legionella Ag (Negative) Negative M. pneumoniae Source Sputum M. pneumoniae (PCR) Negative Parainfluenza 1 (PCR) (Negative) Parainfluenza 2 (PCR) (Negative) Parainfluenza 3 (PCR) (Negative) Parainfluenza 4 (PCR) (Negative) RSV (PCR) (Negative) Resp Viral Spec Desc Rhinovirus (PCR) (Negative) Ur Strep pneumoniae Ag (Negative) Negative TB Test Ag - Nil 1 IU/mL TB Test Ag - Nil 2 IU/mL TB Test (QFT) Interp (Negative) B-(1,3)-D-Glucan Quant (<60 pg/mL) pg/mL B-(1,3)-D-Glucan Qual (Negative) Range/Units 07/31/22 07/31/22 07/31/22 06:10 06:10 13:10 WBC (4.4-10.8) 10^3/uL 10.90 H RBC (4.36-5.78) 10^6/uL 4.32 L Hgb (13.5-17.5) g/dL 13.4 L Hct (40.0-50.0) % 40.1 MCV (80-95) fL 93 MCH (27.0-33.0) pg 31.0 MCHC (32.0-36.0) % 33.4 RDW (11.8-14.1) % 13.6 Plt Count (130-400) 10^3/uL 214 MPV (8.0-11.0) fL 8.5 Immature Gran % 0.6 Neutrophils % 86.7 Lymphocytes % 7.7 Monocytes % 5.0 Eosinophils % 0.0 Basophils % 0.0 Nucleated RBC % (0.0-0.3) % 0.0 Absolute Neutrophils (1.2-6.7) 10^3/uL 9.45 H Absolute Lymphocytes (1.2-3.4) 10^3/uL 0.84 L Absolute Monocytes (0.1-0.8) 10^3/uL 0.55 Absolute Eosinophils (0.0-0.7) 10^3/uL 0.00 Absolute Basophils (0.0-0.2) 10^3/uL 0.00 ESR (0-20) mm/hr PT (9.3-11.0) sec INR (0.9-1.1) APTT (21.5-31.9) sec D-Dimer (<500) ng/mlFEU Sodium (136-145) mmol/L 138 Potassium (3.5-5.1) mmol/L 4.2 D Chloride (98-107) mmol/L 103 Carbon Dioxide (21.0-32.0) mmol/L 28.5 Anion Gap (3-11) mmol/L 6.5 BUN (7-18) mg/dL 27 H Creatinine (0.70-1.30) mg/dL 1.0 Est GFR (CKD-EPI 2020) (mL/min/1.73m2) 87.78 Glucose (74-106) mg/dL 136 H Calcium (8.5-10.1) mg/dL 9.2 Magnesium (1.8-2.4) mg/dL 2.3 Total Bilirubin (0.2-1.0) mg/dL AST (15-37) U/L ALT (16-63) U/L Alkaline Phosphatase (46-116) U/L Troponin I (<or=60) ng/L C-Reactive Protein (0.0-0.3) mg/dL 6.06 H NT-Pro-B Natriuret Pep (<300) pg/mL Total Protein (6.4-8.2) g/dL Albumin (3.4-5.0) g/dL Procalcitonin ng/mL PARAM Titer 1:320 Speckled PARAM Titer 2 Not Applicable PARAM Titer 3 Not Applicable PARAM Interpretation (Negative) Positive A SS-A Antibody (<20.0) Units SS-B Antibody (<20.0) Units Sm (Smliey) Antibody (<20.0) Units Adenovirus DNA (Negative) Blastomyces Ag Result Blastomyces Ag Comment ng/mL COVID-19 Source SARS-CoV-2 (PCR) (Negative) Urine Histoplasma Ag U Histoplasma Ag Index ng/mL Human Metapneumovir RNA (Negative) Influenza Type A (PCR) (Negative) Influenza Type B (PCR) (Negative) Urine Legionella Ag (Negative) M. pneumoniae Source M. pneumoniae (PCR) Parainfluenza 1 (PCR) (Negative) Parainfluenza 2 (PCR) (Negative) Parainfluenza 3 (PCR) (Negative) Parainfluenza 4 (PCR) (Negative) RSV (PCR) (Negative) Resp Viral Spec Desc Rhinovirus (PCR) (Negative) Ur Strep pneumoniae Ag (Negative) TB Test Ag - Nil 1 IU/mL TB Test Ag - Nil 2 IU/mL TB Test (QFT) Interp (Negative) B-(1,3)-D-Glucan Quant (<60 pg/mL) pg/mL B-(1,3)-D-Glucan Qual (Negative) Range/Units 07/31/22 07/31/22 07/31/22 13:10 14:17 14:17 WBC (4.4-10.8) 10^3/uL RBC (4.36-5.78) 10^6/uL Hgb (13.5-17.5) g/dL Hct (40.0-50.0) % MCV (80-95) fL MCH (27.0-33.0) pg MCHC (32.0-36.0) % RDW (11.8-14.1) % Plt Count (130-400) 10^3/uL MPV (8.0-11.0) fL Immature Gran % Neutrophils % Lymphocytes % Monocytes % Eosinophils % Basophils % Nucleated RBC % (0.0-0.3) % Absolute Neutrophils (1.2-6.7) 10^3/uL Absolute Lymphocytes (1.2-3.4) 10^3/uL Absolute Monocytes (0.1-0.8) 10^3/uL Absolute Eosinophils (0.0-0.7) 10^3/uL Absolute Basophils (0.0-0.2) 10^3/uL ESR (0-20) mm/hr PT (9.3-11.0) sec INR (0.9-1.1) APTT (21.5-31.9) sec D-Dimer (<500) ng/mlFEU Sodium (136-145) mmol/L Potassium (3.5-5.1) mmol/L Chloride (98-107) mmol/L Carbon Dioxide (21.0-32.0) mmol/L Anion Gap (3-11) mmol/L BUN (7-18) mg/dL Creatinine (0.70-1.30) mg/dL Est GFR (CKD-EPI 2020) (mL/min/1.73m2) Glucose (74-106) mg/dL Calcium (8.5-10.1) mg/dL Magnesium (1.8-2.4) mg/dL Total Bilirubin (0.2-1.0) mg/dL AST (15-37) U/L ALT (16-63) U/L Alkaline Phosphatase (46-116) U/L Troponin I (<or=60) ng/L C-Reactive Protein (0.0-0.3) mg/dL NT-Pro-B Natriuret Pep (<300) pg/mL Total Protein (6.4-8.2) g/dL Albumin (3.4-5.0) g/dL Procalcitonin ng/mL PARAM Titer PARAM Titer 2 PARAM Titer 3 PARAM Interpretation (Negative) SS-A Antibody (<20.0) Units SS-B Antibody (<20.0) Units Sm (Smiley) Antibody (<20.0) Units Adenovirus DNA (Negative) Blastomyces Ag Result Not Detected Blastomyces Ag Comment ng/mL Not Detected COVID-19 Source SARS-CoV-2 (PCR) (Negative) Urine Histoplasma Ag Not Detected U Histoplasma Ag Index ng/mL Not Detected Human Metapneumovir RNA (Negative) Influenza Type A (PCR) (Negative) Influenza Type B (PCR) (Negative) Urine Legionella Ag (Negative) M. pneumoniae Source M. pneumoniae (PCR) Parainfluenza 1 (PCR) (Negative) Parainfluenza 2 (PCR) (Negative) Parainfluenza 3 (PCR) (Negative) Parainfluenza 4 (PCR) (Negative) RSV (PCR) (Negative) Resp Viral Spec Desc Rhinovirus (PCR) (Negative) Ur Strep pneumoniae Ag (Negative) TB Test Ag - Nil 1 IU/mL TB Test Ag - Nil 2 IU/mL TB Test (QFT) Interp (Negative) B-(1,3)-D-Glucan Quant (<60 pg/mL) pg/mL <31 B-(1,3)-D-Glucan Qual (Negative) Negative Range/Units 07/31/22 08/01/22 08/01/22 Unknown 06:12 06:12 WBC (4.4-10.8) 10^3/uL 14.58 H RBC (4.36-5.78) 10^6/uL 4.32 L Hgb (13.5-17.5) g/dL 13.4 L Hct (40.0-50.0) % 40.4 MCV (80-95) fL 94 MCH (27.0-33.0) pg 31.0 MCHC (32.0-36.0) % 33.2 RDW (11.8-14.1) % 13.4 Plt Count (130-400) 10^3/uL 212 MPV (8.0-11.0) fL 8.3 Immature Gran % 0.8 Neutrophils % 88.3 Lymphocytes % 6.9 Monocytes % 3.9 Eosinophils % 0.0 Basophils % 0.1 Nucleated RBC % (0.0-0.3) % 0.0 Absolute Neutrophils (1.2-6.7) 10^3/uL 12.87 H Absolute Lymphocytes (1.2-3.4) 10^3/uL 1.01 L Absolute Monocytes (0.1-0.8) 10^3/uL 0.57 Absolute Eosinophils (0.0-0.7) 10^3/uL 0.00 Absolute Basophils (0.0-0.2) 10^3/uL 0.01 ESR (0-20) mm/hr PT (9.3-11.0) sec INR (0.9-1.1) APTT (21.5-31.9) sec D-Dimer (<500) ng/mlFEU Sodium (136-145) mmol/L 137 Potassium (3.5-5.1) mmol/L 3.9 Chloride (98-107) mmol/L 104 Carbon Dioxide (21.0-32.0) mmol/L 26.1 Anion Gap (3-11) mmol/L 6.9 BUN (7-18) mg/dL 27 H Creatinine (0.70-1.30) mg/dL 1.1 Est GFR (CKD-EPI 2020) (mL/min/1.73m2) 78.30 Glucose (74-106) mg/dL 130 H Calcium (8.5-10.1) mg/dL 9.0 Magnesium (1.8-2.4) mg/dL 2.3 Total Bilirubin (0.2-1.0) mg/dL AST (15-37) U/L ALT (16-63) U/L Alkaline Phosphatase (46-116) U/L Troponin I (<or=60) ng/L C-Reactive Protein (0.0-0.3) mg/dL 2.79 H NT-Pro-B Natriuret Pep (<300) pg/mL Total Protein (6.4-8.2) g/dL Albumin (3.4-5.0) g/dL Procalcitonin ng/mL PARAM Titer PARAM Titer 2 PARAM Titer 3 PARAM Interpretation (Negative) SS-A Antibody (<20.0) Units SS-B Antibody (<20.0) Units Sm (Smiley) Antibody (<20.0) Units Adenovirus DNA (Negative) Blastomyces Ag Result Cancelled Blastomyces Ag Comment ng/mL Cancelled COVID-19 Source SARS-CoV-2 (PCR) (Negative) Urine Histoplasma Ag U Histoplasma Ag Index ng/mL Human Metapneumovir RNA (Negative) Influenza Type A (PCR) (Negative) Influenza Type B (PCR) (Negative) Urine Legionella Ag (Negative) M. pneumoniae Source M. pneumoniae (PCR) Parainfluenza 1 (PCR) (Negative) Parainfluenza 2 (PCR) (Negative) Parainfluenza 3 (PCR) (Negative) Parainfluenza 4 (PCR) (Negative) RSV (PCR) (Negative) Resp Viral Spec Desc Rhinovirus (PCR) (Negative) Ur Strep pneumoniae Ag (Negative) TB Test Ag - Nil 1 IU/mL TB Test Ag - Nil 2 IU/mL TB Test (QFT) Interp (Negative) B-(1,3)-D-Glucan Quant (<60 pg/mL) pg/mL B-(1,3)-D-Glucan Qual (Negative) Range/Units 08/02/22 08/02/22 08/02/22 06:12 06:12 06:12 WBC (4.4-10.8) 10^3/uL RBC (4.36-5.78) 10^6/uL Hgb (13.5-17.5) g/dL Hct (40.0-50.0) % MCV (80-95) fL MCH (27.0-33.0) pg MCHC (32.0-36.0) % RDW (11.8-14.1) % Plt Count (130-400) 10^3/uL MPV (8.0-11.0) fL Immature Gran % Neutrophils % Lymphocytes % Monocytes % Eosinophils % Basophils % Nucleated RBC % (0.0-0.3) % Absolute Neutrophils (1.2-6.7) 10^3/uL Absolute Lymphocytes (1.2-3.4) 10^3/uL Absolute Monocytes (0.1-0.8) 10^3/uL Absolute Eosinophils (0.0-0.7) 10^3/uL Absolute Basophils (0.0-0.2) 10^3/uL ESR (0-20) mm/hr PT (9.3-11.0) sec INR (0.9-1.1) APTT (21.5-31.9) sec D-Dimer (<500) ng/mlFEU Sodium (136-145) mmol/L Potassium (3.5-5.1) mmol/L Chloride (98-107) mmol/L Carbon Dioxide (21.0-32.0) mmol/L Anion Gap (3-11) mmol/L BUN (7-18) mg/dL Creatinine (0.70-1.30) mg/dL Est GFR (CKD-EPI 2020) (mL/min/1.73m2) Glucose (74-106) mg/dL Calcium (8.5-10.1) mg/dL Magnesium (1.8-2.4) mg/dL Total Bilirubin (0.2-1.0) mg/dL AST (15-37) U/L ALT (16-63) U/L Alkaline Phosphatase (46-116) U/L Troponin I (<or=60) ng/L C-Reactive Protein (0.0-0.3) mg/dL 1.36 H NT-Pro-B Natriuret Pep (<300) pg/mL Total Protein (6.4-8.2) g/dL Albumin (3.4-5.0) g/dL Procalcitonin ng/mL < 0.1 PARAM Titer PARAM Titer 2 PARAM Titer 3 PARMA Interpretation (Negative) SS-A Antibody (<20.0) Units SS-B Antibody (<20.0) Units Sm (Smiley) Antibody (<20.0) Units Adenovirus DNA (Negative) Blastomyces Ag Result Blastomyces Ag Comment ng/mL COVID-19 Source SARS-CoV-2 (PCR) (Negative) Urine Histoplasma Ag U Histoplasma Ag Index ng/mL Human Metapneumovir RNA (Negative) Influenza Type A (PCR) (Negative) Influenza Type B (PCR) (Negative) Urine Legionella Ag (Negative) M. pneumoniae Source M. pneumoniae (PCR) Parainfluenza 1 (PCR) (Negative) Parainfluenza 2 (PCR) (Negative) Parainfluenza 3 (PCR) (Negative) Parainfluenza 4 (PCR) (Negative) RSV (PCR) (Negative) Resp Viral Spec Desc Rhinovirus (PCR) (Negative) Ur Strep pneumoniae Ag (Negative) TB Test Ag - Nil 1 IU/mL 0.00 TB Test Ag - Nil 2 IU/mL 0.00 TB Test (QFT) Interp (Negative) Negative B-(1,3)-D-Glucan Quant (<60 pg/mL) pg/mL B-(1,3)-D-Glucan Qual (Negative) Range/Units 08/02/22 08/02/22 08/02/22 06:12 06:12 06:12 WBC (4.4-10.8) 10^3/uL 11.94 H RBC (4.36-5.78) 10^6/uL 4.31 L Hgb (13.5-17.5) g/dL 13.5 Hct (40.0-50.0) % 40.5 MCV (80-95) fL 94 MCH (27.0-33.0) pg 31.3 MCHC (32.0-36.0) % 33.3 RDW (11.8-14.1) % 13.4 Plt Count (130-400) 10^3/uL 197 MPV (8.0-11.0) fL 8.5 Immature Gran % 0.9 Neutrophils % 89.0 Lymphocytes % 5.5 Monocytes % 4.4 Eosinophils % 0.1 Basophils % 0.1 Nucleated RBC % (0.0-0.3) % 0.0 Absolute Neutrophils (1.2-6.7) 10^3/uL 10.63 H Absolute Lymphocytes (1.2-3.4) 10^3/uL 0.66 L Absolute Monocytes (0.1-0.8) 10^3/uL 0.53 Absolute Eosinophils (0.0-0.7) 10^3/uL 0.01 Absolute Basophils (0.0-0.2) 10^3/uL 0.01 ESR (0-20) mm/hr 21 H PT (9.3-11.0) sec INR (0.9-1.1) APTT (21.5-31.9) sec D-Dimer (<500) ng/mlFEU Sodium (136-145) mmol/L Potassium (3.5-5.1) mmol/L Chloride (98-107) mmol/L Carbon Dioxide (21.0-32.0) mmol/L Anion Gap (3-11) mmol/L BUN (7-18) mg/dL Creatinine (0.70-1.30) mg/dL Est GFR (CKD-EPI 2020) (mL/min/1.73m2) Glucose (74-106) mg/dL Calcium (8.5-10.1) mg/dL Magnesium (1.8-2.4) mg/dL Total Bilirubin (0.2-1.0) mg/dL AST (15-37) U/L ALT (16-63) U/L Alkaline Phosphatase (46-116) U/L Troponin I (<or=60) ng/L C-Reactive Protein (0.0-0.3) mg/dL NT-Pro-B Natriuret Pep (<300) pg/mL Total Protein (6.4-8.2) g/dL Albumin (3.4-5.0) g/dL Procalcitonin ng/mL PARAM Titer PARAM Titer 2 PARAM Titer 3 PARAM Interpretation (Negative) SS-A Antibody (<20.0) Units 1.3 SS-B Antibody (<20.0) Units 2.2 Sm (Smiley) Antibody (<20.0) Units 2.0 Adenovirus DNA (Negative) Blastomyces Ag Result Blastomyces Ag Comment ng/mL COVID-19 Source SARS-CoV-2 (PCR) (Negative) Urine Histoplasma Ag U Histoplasma Ag Index ng/mL Human Metapneumovir RNA (Negative) Influenza Type A (PCR) (Negative) Influenza Type B (PCR) (Negative) Urine Legionella Ag (Negative) M. pneumoniae Source M. pneumoniae (PCR) Parainfluenza 1 (PCR) (Negative) Parainfluenza 2 (PCR) (Negative) Parainfluenza 3 (PCR) (Negative) Parainfluenza 4 (PCR) (Negative) RSV (PCR) (Negative) Resp Viral Spec Desc Rhinovirus (PCR) (Negative) Ur Strep pneumoniae Ag (Negative) TB Test Ag - Nil 1 IU/mL TB Test Ag - Nil 2 IU/mL TB Test (QFT) Interp (Negative) B-(1,3)-D-Glucan Quant (<60 pg/mL) pg/mL B-(1,3)-D-Glucan Qual (Negative) Range/Units 08/03/22 08/03/22 11:35 11:35 WBC (4.4-10.8) 10^3/uL 16.46 H RBC (4.36-5.78) 10^6/uL 4.65 Hgb (13.5-17.5) g/dL 14.3 Hct (40.0-50.0) % 43.0 MCV (80-95) fL 93 MCH (27.0-33.0) pg 30.8 MCHC (32.0-36.0) % 33.3 RDW (11.8-14.1) % 13.6 Plt Count (130-400) 10^3/uL 201 MPV (8.0-11.0) fL 8.4 Immature Gran % 1.3 Neutrophils % 88.7 Lymphocytes % 3.1 Monocytes % 6.7 Eosinophils % 0.0 Basophils % 0.2 Nucleated RBC % (0.0-0.3) % 0.0 Absolute Neutrophils (1.2-6.7) 10^3/uL 14.60 H Absolute Lymphocytes (1.2-3.4) 10^3/uL 0.51 L Absolute Monocytes (0.1-0.8) 10^3/uL 1.10 H Absolute Eosinophils (0.0-0.7) 10^3/uL 0.00 Absolute Basophils (0.0-0.2) 10^3/uL 0.03 ESR (0-20) mm/hr PT (9.3-11.0) sec INR (0.9-1.1) APTT (21.5-31.9) sec D-Dimer (<500) ng/mlFEU Sodium (136-145) mmol/L 142 Potassium (3.5-5.1) mmol/L 3.8 Chloride (98-107) mmol/L 103 Carbon Dioxide (21.0-32.0) mmol/L 32.5 H Anion Gap (3-11) mmol/L 6.5 BUN (7-18) mg/dL 28 H Creatinine (0.70-1.30) mg/dL 1.1 Est GFR (CKD-EPI 2020) (mL/min/1.73m2) 78.30 Glucose (74-106) mg/dL 119 H Calcium (8.5-10.1) mg/dL 9.3 Magnesium (1.8-2.4) mg/dL Total Bilirubin (0.2-1.0) mg/dL 0.4 AST (15-37) U/L 15 ALT (16-63) U/L 29 Alkaline Phosphatase (46-116) U/L 63 Troponin I (<or=60) ng/L C-Reactive Protein (0.0-0.3) mg/dL 0.64 H NT-Pro-B Natriuret Pep (<300) pg/mL Total Protein (6.4-8.2) g/dL 6.4 Albumin (3.4-5.0) g/dL 2.8 L Procalcitonin ng/mL PARAM Titer PARAM Titer 2 PARAM Titer 3 PARAM Interpretation (Negative) SS-A Antibody (<20.0) Units SS-B Antibody (<20.0) Units Sm (Smiley) Antibody (<20.0) Units Adenovirus DNA (Negative) Blastomyces Ag Result Blastomyces Ag Comment ng/mL COVID-19 Source SARS-CoV-2 (PCR) (Negative) Urine Histoplasma Ag U Histoplasma Ag Index ng/mL Human Metapneumovir RNA (Negative) Influenza Type A (PCR) (Negative) Influenza Type B (PCR) (Negative) Urine Legionella Ag (Negative) M. pneumoniae Source M. pneumoniae (PCR) Parainfluenza 1 (PCR) (Negative) Parainfluenza 2 (PCR) (Negative) Parainfluenza 3 (PCR) (Negative) Parainfluenza 4 (PCR) (Negative) RSV (PCR) (Negative) Resp Viral Spec Desc Rhinovirus (PCR) (Negative) Ur Strep pneumoniae Ag (Negative) TB Test Ag - Nil 1 IU/mL TB Test Ag - Nil 2 IU/mL TB Test (QFT) Interp (Negative) B-(1,3)-D-Glucan Quant (<60 pg/mL) pg/mL B-(1,3)-D-Glucan Qual (Negative)
[2022-08-06 07:39] LABS: Platelet Count 192 10^3/uL (130-400)
[2022-08-06] MEDS: Benzonatate 200 MG CAP PO ×3 (08:12→19:50)
[2022-08-06] MEDS: Apixaban 5 MG TAB 10 MG PO ×2 (08:12→19:49)
[2022-08-06] MEDS: Pantoprazole 40 MG TABCR PO (08:12)
[2022-08-06] MEDS: methylPREDNISolone SUCC 125 MG VIAL 60 MG IVP (08:13)
[2022-08-06] MEDS: Azithromycin 250 MG TAB PO (08:13)
[2022-08-06] MEDS: guaiFENesin 600 MG TABCR 1200 MG PO ×2 (08:13→19:50)
[2022-08-06] MEDS: Budesonide/Formoterol 160/4.5 6 GM 60 PUFF INH IH ×2 (09:46→19:51)
[2022-08-06] MEDS: Tiotropium Bromide-Respimat 10 PUFF INH 2 PUFF IH (09:47)
--- NOTE | 2022-08-06 12:37 | W.PM.PROGNOT ---
Date of Service Date of service: 08/06/22 Time of Service: 12:37 Assessment and Plan Assessment and plan (1) Organizing pneumonia: Status: Acute Assessment and plan: Reccommendations as per Dr. Torres as listed below: Hypoxic respiratory failure - supplemental O2 for sats >90% - wean off HFNC as tolerated Organizing pneumonia - BAL with 60% neutrophils, no bacterial or fungal infections seen - recommend 500mg IV methylprednisilone bid for 3 days, followed by weaning to 40mg daily over 3 days - he is already on Bactrim ppx - most rheumatologic testing negative - some tests still pending Human metapneumovirus pneumonia - recommend trial of ribavirn 600mg bid for 7-10 days (pharmacy to order this in, will be here in the morning on 08/07) Professional time spent interviewing and examining patient, discussion of goals of care with hospital team (care management, nursing and consulting professionals) was 30 minutes. (2) Respiratory failure with hypoxia: Status: Acute Assessment and plan: as above (3) Human metapneumovirus (hMPV) pneumonia: Status: Acute (4) Right leg DVT: Status: Acute Assessment and plan: on apixaban 10 mg bid through 08/11/22 @ 20:00, should begin 5 mg bid beginning on morning of 08/12 (5) DVT prophylaxis: Status: Acute Assessment and plan: on apixaban Subjective Subjective Interval history since last seen: Patient has been constipated, so I ordered bowel regimen including senna, colace and miralax. he was getting up to bedside commode and had a BM but developed severe hypoxemia w/ SPO2 of 69% and became cyanotic. Nursing promptly attended to him and he was put on 15 lpm NRB mask (he had been on regular NC at 10 lpm). He has since recovered. I was notified of the event after the fact. He is now on HFNC at 50 lpm and FIO2 of 67%. His SPO2 is now 96%. He feels much better. Exam Narrative Exam Narrative: Obese male who appears recovered from his acute respiratory event. He is not using accesssory respiratory muscle to breathe. He is able to talk in complete sentences now LUngs: diffuse fine rales in all lung carlin Heart: regular rate and rhythm now Abdomen: soft, non-distended, nontender Legs: no edema, no peripheral cyanosis Objective Last Vital Signs Temp 37.1 C 08/06/22 11:16 Pulse 95 H 08/06/22 11:24 Resp 40 H 08/06/22 11:22 BP 121/84 08/06/22 11:22 Pulse Ox 93 08/06/22 11:24 Laboratory Results - last 24 hr 08/02/22 08/02/22 08/04/22 06:12 06:12 12:45 Plt Count ANCA Immunofluorescen Negative ANCA Titer Not Applicable ANCA Pattern Not Applicable SS-A Antibody 1.3 SS-B Antibody 2.2 Sm (Smiley) Antibody 2.0 Scl-70 IgG Ab <0.2 Adenovirus DNA Negative Human Metapneumovir RNA Positive A Parainfluenza 1 (PCR) Negative Parainfluenza 2 (PCR) Negative Parainfluenza 3 (PCR) Negative Parainfluenza 4 (PCR) Negative Resp Viral Spec Desc Not Applicable Rhinovirus (PCR) Negative 08/06/22 06:07 Plt Count 192 ANCA Immunofluorescen ANCA Titer ANCA Pattern SS-A Antibody SS-B Antibody Sm (Smiley) Antibody Scl-70 IgG Ab Adenovirus DNA Human Metapneumovir RNA Parainfluenza 1 (PCR) Parainfluenza 2 (PCR) Parainfluenza 3 (PCR) Parainfluenza 4 (PCR) Resp Viral Spec Desc Rhinovirus (PCR) Time Spent with Patient Time Spent with Patient: 25-34 minutes Time was spent: preparing to see the patient(eg.review tests), ordering medications,tests, procedures, referring, communicating with other health healthcare insurance sales agent (Dr. Torres as well as nursing staff including nursing land management supervisor), indepentently interpreting results, counseling the patient and care coordination
[2022-08-06] MEDS: Docusate Sodium 100 MG CAP PO ×2 (13:18→19:51)
[2022-08-06] MEDS: Sulfameth/Trimeth DS TAB 1 TAB PO (15:35)
--- NOTE | 2022-08-06 15:36 | NUR.NOTE ---
Nursing Note: At approximately 1445 on 08/06/22, this RN gave nurse to nurse report on the pt. to the FOOD GENERAL MANAGER. Pt. to be transferred to the ICU per MD order. FOOD GENERAL MANAGER will call Med/Surg when the room is ready for the pt.
--- NOTE | 2022-08-06 15:51 | CMPROGNOTE_ITS ---
- If Service Date Differs Date of service: 08/06/22 Time of Service: 15:51 Care Management Progress Note S/O: Shawn transferred back to the ICU today after having a respiratory status change while using the commode. He is being closely monitored and treated and on Hi Flow O2. CM will continue to follow. A: Shawn is a 56 year old male admitted to [facility] on 07/30/22 for organizing pneumonia. P: Shawn may transfer to [facility] [place] if accepted, and will transport via EMS vs return home once medically cleared. He does not feel that HH services are indicated at this time, as he has support from family and friends. He will follow up with his PCP and discharge plan of care. CM will continue to follow.
[2022-08-06] MEDS: Normal Saline Flush 10 ML SYR IVP (17:33)
[2022-08-06] MEDS: methylPREDNISolone SUCC 500 MG in Normal Saline 100 ML 216 MG IVPB (19:59)
[2022-08-06] MEDS: Melatonin 3 MG TAB PO (20:29)
[2022-08-07] VITALS (46 sets, daily range): BP systolic 103–133; BP diastolic 62–85; PULSE 51–120; RESP 4–50; TEMP 31–37; O2SAT 86–95
[2022-08-07] MEDS: Albuterol/Ipratropium 3 ML UPD VIAL UPD ×4 (00:07→17:35)
[2022-08-07] MEDS: CEFEPIME 2 GM in Normal Saline 100 ML IVPB ×3 (01:36→18:30)
--- NOTE | 2022-08-07 07:12 | PGE_ITS ---
Assessment and Plan Assessment and plan (1) Infiltrate of lung present on computed tomography: Status: Acute (2) Respiratory failure with hypoxia: Status: Acute (3) Human metapneumovirus (hMPV) pneumonia: Status: Acute (4) Organizing pneumonia: Status: Acute Assessment and plan: This is a 56 yo with worsening clinical and radiologic organizing pneumonia. His BAL found no malignancy, negative silver stain and a pattern of acute inflammation. His extended viral panel did return with positive metapneumovirus. I think that his organizing pneumonia has been worsening with time and he now has contracted an additional viral infection that has acutely exacerbated his respiratory decompensation. Ribavirin does have anti-viral activity against human metapneumovirus and it may be worth starting this to see if he improves. Given the inflammatory pattern of the BAL, I will recommend a pulse dose steroid regimen for 3 days in order to see if this helps (now that fungal infection has been thoroughly ruled out). Pharmacy has to order in the ribavirin so will start this today. If he does not seem to be improving by tomorrow, I would recommend transfer to a tertiary center where rheumatology and infectious disease assista nce is available. Hypoxic respiratory failure - supplemental O2 for sats >90% - wean off HFNC as tolerated Organizing pneumonia - BAL with 60% neutrophils, no bacterial or fungal infections seen - recommend 500mg IV methylprednisilone bid for 2 more days, followed by weaning to 40mg daily over 3 days - he is already on Bactrim ppx - rheumatologic testing negative Human metapneumovirus pneumonia - recommend trial of ribavirn 600mg bid for 7-10 days General Date Of Service Date of service: 08/07/22 Time of Service: 07:13 Reason for Consult: Abnormal chest CT Subjective 24 Hour Events: He was transferred to the ICU out of concern for exertional desaturation Note Note: He feels as though his continues to decline. He has concerns about his mortality. His breathing is strained. Exam Narrative Exam Narrative: Gen:?in mild to moderate respiratory distress at rest HENT:?PERRL Chest:?Mild to moderate respiratory distress, crackles present throughout Heart:?regular rate and rhythym, no murmurs, rubs or gallops Abdomen:?Non-distended, soft, non tender Extremities:?No clubbing, edema, cyanosis, rashes Neuro:?AAOx3 , non focal Psych:?cooperative, appropriate mental affect Objective Last Vital Signs Temp 36.4 C L 08/07/22 04:00 Pulse 55 L 08/07/22 06:11 Resp 27 H 08/07/22 06:11 BP 103/62 08/07/22 04:01 Pulse Ox 95 08/07/22 06:11 Laboratory Results - last 24 hr 08/02/22 08/02/22 08/02/22 06:12 06:12 06:12 Plt Count ANCA Immunofluorescen Negative ANCA Titer Not Applicable ANCA Pattern Not Applicable Scl-70 IgG Ab <0.2 Adenovirus DNA Human Metapneumovir RNA Parainfluenza 1 (PCR) Parainfluenza 2 (PCR) Parainfluenza 3 (PCR) Parainfluenza 4 (PCR) Aspergillus Ag (EIA) Cancelled Resp Viral Spec Desc Rhinovirus (PCR) 08/04/22 08/06/22 12:45 06:07 Plt Count 192 ANCA Immunofluorescen ANCA Titer ANCA Pattern Scl-70 IgG Ab Adenovirus DNA Negative Human Metapneumovir RNA Positive A Parainfluenza 1 (PCR) Negative Parainfluenza 2 (PCR) Negative Parainfluenza 3 (PCR) Negative Parainfluenza 4 (PCR) Negative Aspergillus Ag (EIA) Resp Viral Spec Desc Not Applicable Rhinovirus (PCR) Negative Results Medications Medications: Active Medications Generic Name Dose Route Start Last Admin Trade Name Freq PRN Reason Stop Dose Admin Acetaminophen 0 mg 07/30/22 16:40 Acetaminophen 325 Mg Tab PO Q4H PRN PRN Al Hydrox/Mg Hydrox/Simethicone 30 ml 07/30/22 16:40 Mylanta Suspension 30 Ml Cup PO Q2H PRN PRN Albuterol Sulfate 2.5 mg 07/30/22 16:40 08/01/22 06:10 Albuterol 2.5 Mg/3 Ml Inh Soln Vial UPD 2.5 mg Q2H PRN PRN Administration Albuterol/Ipratropium 3 ml 07/30/22 18:00 08/07/22 06:11 Albuterol/Ipratropium 3 Ml Upd Vial UPD 3 ml Q6H DRISS Administration Apixaban 10 mg 08/05/22 09:45 08/06/22 19:49 Apixaban 5 Mg Tab PO 08/11/22 20:01 10 mg BID DRISS Administration Apixaban 5 mg 08/12/22 08:30 Apixaban 5 Mg Tab PO BID DRISS Azithromycin 250 mg 08/06/22 08:30 08/06/22 08:13 Azithromycin 250 Mg Tab PO 08/09/22 08:31 250 mg DAILY DRISS Administration Benzonatate 200 mg 07/30/22 20:00 08/06/22 19:50 Benzonatate 200 Mg Cap PO 200 mg TID DRISS Administration Budesonide/Formoterol Fumarate 2 puff 07/30/22 20:00 08/06/22 19:51 Budesonide/Formoterol 160/4.5 6 Gm 60 Puff Inh IH 2 puffs BID DRISS Administration Device 1 each 07/30/22 19:00 Inhaler, Assist Device MC DIRECTED DRISS Dextrose 0 gm 08/07/22 00:03 Glucose Oral Gel 15 Gm/37.5 Gm Tube PO DIRECTED PRN Dextrose/Water 0 gm 08/07/22 00:03 Dextrose 50%-Water 25 Gm/50 Ml Syr IVP DIRECTED PRN Dimethicone/Zinc Oxide 0 gm 07/30/22 16:40 Patrick Protect Cream 142 Gm Tube TP PRN PRN Docusate Sodium 100 mg 08/06/22 14:00 08/06/22 19:51 Docusate Sodium 100 Mg Cap PO 100 mg TID DRISS Administration Guaifenesin 1,200 mg 07/30/22 20:00 08/06/22 19:50 Guaifenesin 600 Mg Tabcr PO 1,200 mg BID [facility] Administration Sodium Chloride 500 mls @ 0 mls/hr 07/30/22 20:33 08/04/22 16:37 Saline 500ml Bag IV 0.1 mls/hr PRN PRN Infusion As Directed Cefepime HCl 2 gm/ Sodium 100 mls @ 200 mls/hr 08/05/22 02:00 08/07/22 02:10 Chloride IVPB Infused Q8H [facility] Infusion Methylprednisolone Sodium 108 mls @ 216 mls/hr 08/06/22 20:00 08/06/22 21:10 Succinate 500 mg/ Sodium IVPB 08/09/22 08:59 Infused Chloride BID DRISS Infusion IV Miscellaneous Supplies 1 each 07/30/22 10:30 Iv Access IV DIRECTED [facility] Insulin Aspart 0 units 08/07/22 08:00 Insulin Aspart 300 Units/3 Ml Pen SC 0800,1200,1700,2200 [facility] Protocol Insulin Human NPH 25 unit 08/08/22 08:00 Insulin Nph-Human 300 Units/3 Ml Pen SC Q12H [facility] Lactobacillus Acidophilus/Casei 1 cap 08/01/22 08:30 08/06/22 08:12 L. Acidophilus, Casei, Rhamnosus Cap PO 1 cap DAILY DRISS Administration Magnesium Hydroxide 30 ml 07/30/22 16:40 Milk Of Magnesia 30 Ml Cup PO DAILY PRN PRN Melatonin 3 mg 07/31/22 22:00 08/06/22 20:29 Melatonin 3 Mg Tab PO 3 mg HS DRISS Administration Pantoprazole Sodium 40 mg 07/31/22 07:30 08/06/22 08:12 Pantoprazole 40 Mg Tabcr PO 40 mg DAILY@0730 DRISS Administration Polyethylene Glycol 17 gm 08/06/22 10:42 Polyethylene Glycol 3350 17 Gm Packet PO DAILY PRN PRN Constipation Sennosides 1 tab 08/06/22 22:00 08/06/22 20:27 Senna Tab PO Not Given HS DRISS Sodium Chloride 0 ml 07/30/22 10:26 08/06/22 17:33 Normal Saline Flush 10 Ml Syr IVP 10 ml PRN PRN Administration Sodium Chloride 3 ml 07/31/22 18:00 08/07/22 06:10 Sodium Chloride 0.9% For Inhalation 3 Ml Vial UPD Not Given Q6H DRISS Tiotropium Garwood 2 puff 07/31/22 08:30 08/06/22 09:47 Tiotropium Garwood-Respimat 10 Puff Inh IH 2 puffs DAILY DRISS Administration Trimethoprim/Sulfamethoxazole 1 tab 08/05/22 16:00 08/06/22 15:35 Sulfameth/Trimeth Ds Tab PO 1 tab Q24H DRISS Administration Allergies bee venom protein (honey bee) Allergy (Unknown, Verified 07/30/22 10:44) Labs 08/06/22 06:07 08/03/22 11:35 Labs: 08/03/22 09:35 Sputum - Expectorated Sputum Culture - Final Normal Beba 08/03/22 09:35 Sputum - Expectorated Gram Stain - Final 07/30/22 13:44 Blood Blood Culture - Final NO GROWTH 120 HOURS 07/30/22 13:30 Blood Blood Culture - Final NO GROWTH 120 HOURS 07/30/22 17:40 Sputum Sputum Culture - Final Normal Beba 07/30/22 17:40 Sputum Gram Stain - Final 07/31/22 14:23 Nose MRSA Screen - Final Laboratory Tests Range/Units 07/30/22 07/30/22 07/30/22 10:25 10:25 10:25 WBC (4.4-10.8) 10^3/uL 13.96 H RBC (4.36-5.78) 10^6/uL 4.80 Hgb (13.5-17.5) g/dL 15.1 Hct (40.0-50.0) % 46.1 MCV (80-95) fL 96 H MCH (27.0-33.0) pg 31.5 MCHC (32.0-36.0) % 32.8 RDW (11.8-14.1) % 13.8 Plt Count (130-400) 10^3/uL 196 MPV (8.0-11.0) fL 7.9 L Immature Gran % 0.7 Neutrophils % 70.5 Lymphocytes % 19.2 Monocytes % 7.5 Eosinophils % 1.9 Basophils % 0.2 Nucleated RBC % (0.0-0.3) % 0.0 Absolute Neutrophils (1.2-6.7) 10^3/uL 9.84 H Absolute Lymphocytes (1.2-3.4) 10^3/uL 2.68 Absolute Monocytes (0.1-0.8) 10^3/uL 1.05 H Absolute Eosinophils (0.0-0.7) 10^3/uL 0.27 Absolute Basophils (0.0-0.2) 10^3/uL 0.03 ESR (0-20) mm/hr PT (9.3-11.0) sec 9.9 INR (0.9-1.1) 1.0 APTT (21.5-31.9) sec 24.1 D-Dimer (<500) ng/mlFEU 1869 H Sodium (136-145) mmol/L 139 Potassium (3.5-5.1) mmol/L 3.2 L Chloride (98-107) mmol/L 102 Carbon Dioxide (21.0-32.0) mmol/L 32.9 H Anion Gap (3-11) mmol/L 4.1 BUN (7-18) mg/dL 16 Creatinine (0.70-1.30) mg/dL 1.3 Est GFR (CKD-EPI 2020) (mL/min/1.73m2) 64.07 Glucose (74-106) mg/dL 92 Calcium (8.5-10.1) mg/dL 8.9 Magnesium (1.8-2.4) mg/dL 2.1 Total Bilirubin (0.2-1.0) mg/dL 0.7 AST (15-37) U/L 20 ALT (16-63) U/L 25 Alkaline Phosphatase (46-116) U/L 75 Troponin I (<or=60) ng/L < 50 C-Reactive Protein (0.0-0.3) mg/dL NT-Pro-B Natriuret Pep (<300) pg/mL 26 Total Protein (6.4-8.2) g/dL 6.7 Albumin (3.4-5.0) g/dL 2.9 L Procalcitonin ng/mL PARAM Titer PARAM Titer 2 PARAM Titer 3 PARAM Interpretation (Negative) ANCA Immunofluorescen (Negative) ANCA Titer ANCA Pattern SS-A Antibody (<20.0) Units SS-B Antibody (<20.0) Units Sm (Smiley) Antibody (<20.0) Units Scl-70 IgG Ab U Adenovirus DNA (Negative) Blastomyces Ag Result Blastomyces Ag Comment ng/mL COVID-19 Source SARS-CoV-2 (PCR) (Negative) Urine Histoplasma Ag U Histoplasma Ag Index ng/mL Human Metapneumovir RNA (Negative) Influenza Type A (PCR) (Negative) Influenza Type B (PCR) (Negative) Urine Legionella Ag (Negative) M. pneumoniae Source M. pneumoniae (PCR) Parainfluenza 1 (PCR) (Negative) Parainfluenza 2 (PCR) (Negative) Parainfluenza 3 (PCR) (Negative) Parainfluenza 4 (PCR) (Negative) Aspergillus Ag (EIA) RSV (PCR) (Negative) Resp Viral Spec Desc Rhinovirus (PCR) (Negative) Ur Strep pneumoniae Ag (Negative) TB Test Ag - Nil 1 IU/mL TB Test Ag - Nil 2 IU/mL TB Test (QFT) Interp (Negative) B-(1,3)-D-Glucan Quant (<60 pg/mL) pg/mL B-(1,3)-D-Glucan Qual (Negative) Range/Units 07/30/22 07/30/22 07/30/22 10:25 13:30 13:30 WBC (4.4-10.8) 10^3/uL RBC (4.36-5.78) 10^6/uL Hgb (13.5-17.5) g/dL Hct (40.0-50.0) % MCV (80-95) fL MCH (27.0-33.0) pg MCHC (32.0-36.0) % RDW (11.8-14.1) % Plt Count (130-400) 10^3/uL MPV (8.0-11.0) fL Immature Gran % Neutrophils % Lymphocytes % Monocytes % Eosinophils % Basophils % Nucleated RBC % (0.0-0.3) % Absolute Neutrophils (1.2-6.7) 10^3/uL Absolute Lymphocytes (1.2-3.4) 10^3/uL Absolute Monocytes (0.1-0.8) 10^3/uL Absolute Eosinophils (0.0-0.7) 10^3/uL Absolute Basophils (0.0-0.2) 10^3/uL ESR (0-20) mm/hr PT (9.3-11.0) sec INR (0.9-1.1) APTT (21.5-31.9) sec D-Dimer (<500) ng/mlFEU Sodium (136-145) mmol/L Potassium (3.5-5.1) mmol/L Chloride (98-107) mmol/L Carbon Dioxide (21.0-32.0) mmol/L Anion Gap (3-11) mmol/L BUN (7-18) mg/dL Creatinine (0.70-1.30) mg/dL Est GFR (CKD-EPI 2020) (mL/min/1.73m2) Glucose (74-106) mg/dL Calcium (8.5-10.1) mg/dL Magnesium (1.8-2.4) mg/dL Total Bilirubin (0.2-1.0) mg/dL AST (15-37) U/L ALT (16-63) U/L Alkaline Phosphatase (46-116) U/L Troponin I (<or=60) ng/L C-Reactive Protein (0.0-0.3) mg/dL NT-Pro-B Natriuret Pep (<300) pg/mL Total Protein (6.4-8.2) g/dL Albumin (3.4-5.0) g/dL Procalcitonin ng/mL < 0.1 PARAM Titer PARAM Titer 2 PARAM Titer 3 PARAM Interpretation (Negative) ANCA Immunofluorescen (Negative) ANCA Titer ANCA Pattern SS-A Antibody (<20.0) Units SS-B Antibody (<20.0) Units Sm (Smiley) Antibody (<20.0) Units Scl-70 IgG Ab U Adenovirus DNA (Negative) Negative Blastomyces Ag Result Blastomyces Ag Comment ng/mL COVID-19 Source Nasopharynx SARS-CoV-2 (PCR) (Negative) Negative Urine Histoplasma Ag U Histoplasma Ag Index ng/mL Human Metapneumovir RNA (Negative) Negative Influenza Type A (PCR) (Negative) Negative Influenza Type B (PCR) (Negative) Negative Urine Legionella Ag (Negative) M. pneumoniae Source M. pneumoniae (PCR) Parainfluenza 1 (PCR) (Negative) Negative Parainfluenza 2 (PCR) (Negative) Negative Parainfluenza 3 (PCR) (Negative) Negative Parainfluenza 4 (PCR) (Negative) Negative Aspergillus Ag (EIA) RSV (PCR) (Negative) Negative Resp Viral Spec Desc Not Applicable Rhinovirus (PCR) (Negative) Negative Ur Strep pneumoniae Ag (Negative) TB Test Ag - Nil 1 IU/mL TB Test Ag - Nil 2 IU/mL TB Test (QFT) Interp (Negative) B-(1,3)-D-Glucan Quant (<60 pg/mL) pg/mL B-(1,3)-D-Glucan Qual (Negative) Range/Units 07/30/22 07/31/22 07/31/22 17:40 05:53 05:54 WBC (4.4-10.8) 10^3/uL RBC (4.36-5.78) 10^6/uL Hgb (13.5-17.5) g/dL Hct (40.0-50.0) % MCV (80-95) fL MCH (27.0-33.0) pg MCHC (32.0-36.0) % RDW (11.8-14.1) % Plt Count (130-400) 10^3/uL MPV (8.0-11.0) fL Immature Gran % Neutrophils % Lymphocytes % Monocytes % Eosinophils % Basophils % Nucleated RBC % (0.0-0.3) % Absolute Neutrophils (1.2-6.7) 10^3/uL Absolute Lymphocytes (1.2-3.4) 10^3/uL Absolute Monocytes (0.1-0.8) 10^3/uL Absolute Eosinophils (0.0-0.7) 10^3/uL Absolute Basophils (0.0-0.2) 10^3/uL ESR (0-20) mm/hr PT (9.3-11.0) sec INR (0.9-1.1) APTT (21.5-31.9) sec D-Dimer (<500) ng/mlFEU Sodium (136-145) mmol/L Potassium (3.5-5.1) mmol/L Chloride (98-107) mmol/L Carbon Dioxide (21.0-32.0) mmol/L Anion Gap (3-11) mmol/L BUN (7-18) mg/dL Creatinine (0.70-1.30) mg/dL Est GFR (CKD-EPI 2020) (mL/min/1.73m2) Glucose (74-106) mg/dL Calcium (8.5-10.1) mg/dL Magnesium (1.8-2.4) mg/dL Total Bilirubin (0.2-1.0) mg/dL AST (15-37) U/L ALT (16-63) U/L Alkaline Phosphatase (46-116) U/L Troponin I (<or=60) ng/L C-Reactive Protein (0.0-0.3) mg/dL NT-Pro-B Natriuret Pep (<300) pg/mL Total Protein (6.4-8.2) g/dL Albumin (3.4-5.0) g/dL Procalcitonin ng/mL PARAM Titer PARAM Titer 2 PARAM Titer 3 PARAM Interpretation (Negative) ANCA Immunofluorescen (Negative) ANCA Titer ANCA Pattern SS-A Antibody (<20.0) Units SS-B Antibody (<20.0) Units Sm (Smiley) Antibody (<20.0) Units Scl-70 IgG Ab U Adenovirus DNA (Negative) Blastomyces Ag Result Blastomyces Ag Comment ng/mL COVID-19 Source SARS-CoV-2 (PCR) (Negative) Urine Histoplasma Ag U Histoplasma Ag Index ng/mL Human Metapneumovir RNA (Negative) Influenza Type A (PCR) (Negative) Influenza Type B (PCR) (Negative) Urine Legionella Ag (Negative) Negative M. pneumoniae Source Sputum M. pneumoniae (PCR) Negative Parainfluenza 1 (PCR) (Negative) Parainfluenza 2 (PCR) (Negative) Parainfluenza 3 (PCR) (Negative) Parainfluenza 4 (PCR) (Negative) Aspergillus Ag (EIA) RSV (PCR) (Negative) Resp Viral Spec Desc Rhinovirus (PCR) (Negative) Ur Strep pneumoniae Ag (Negative) Negative TB Test Ag - Nil 1 IU/mL TB Test Ag - Nil 2 IU/mL TB Test (QFT) Interp (Negative) B-(1,3)-D-Glucan Quant (<60 pg/mL) pg/mL B-(1,3)-D-Glucan Qual (Negative) Range/Units 07/31/22 07/31/22 07/31/22 06:10 06:10 13:10 WBC (4.4-10.8) 10^3/uL 10.90 H RBC (4.36-5.78) 10^6/uL 4.32 L Hgb (13.5-17.5) g/dL 13.4 L Hct (40.0-50.0) % 40.1 MCV (80-95) fL 93 MCH (27.0-33.0) pg 31.0 MCHC (32.0-36.0) % 33.4 RDW (11.8-14.1) % 13.6 Plt Count (130-400) 10^3/uL 214 MPV (8.0-11.0) fL 8.5 Immature Gran % 0.6 Neutrophils % 86.7 Lymphocytes % 7.7 Monocytes % 5.0 Eosinophils % 0.0 Basophils % 0.0 Nucleated RBC % (0.0-0.3) % 0.0 Absolute Neutrophils (1.2-6.7) 10^3/uL 9.45 H Absolute Lymphocytes (1.2-3.4) 10^3/uL 0.84 L Absolute Monocytes (0.1-0.8) 10^3/uL 0.55 Absolute Eosinophils (0.0-0.7) 10^3/uL 0.00 Absolute Basophils (0.0-0.2) 10^3/uL 0.00 ESR (0-20) mm/hr PT (9.3-11.0) sec INR (0.9-1.1) APTT (21.5-31.9) sec D-Dimer (<500) ng/mlFEU Sodium (136-145) mmol/L 138 Potassium (3.5-5.1) mmol/L 4.2 D Chloride (98-107) mmol/L 103 Carbon Dioxide (21.0-32.0) mmol/L 28.5 Anion Gap (3-11) mmol/L 6.5 BUN (7-18) mg/dL 27 H Creatinine (0.70-1.30) mg/dL 1.0 Est GFR (CKD-EPI 2020) (mL/min/1.73m2) 87.78 Glucose (74-106) mg/dL 136 H Calcium (8.5-10.1) mg/dL 9.2 Magnesium (1.8-2.4) mg/dL 2.3 Total Bilirubin (0.2-1.0) mg/dL AST (15-37) U/L ALT (16-63) U/L Alkaline Phosphatase (46-116) U/L Troponin I (<or=60) ng/L C-Reactive Protein (0.0-0.3) mg/dL 6.06 H NT-Pro-B Natriuret Pep (<300) pg/mL Total Protein (6.4-8.2) g/dL Albumin (3.4-5.0) g/dL Procalcitonin ng/mL PARAM Titer 1:320 Speckled PARAM Titer 2 Not Applicable PARAM Titer 3 Not Applicable PARAM Interpretation (Negative) Positive A ANCA Immunofluorescen (Negative) ANCA Titer ANCA Pattern SS-A Antibody (<20.0) Units SS-B Antibody (<20.0) Units Sm (Smiley) Antibody (<20.0) Units Scl-70 IgG Ab U Adenovirus DNA (Negative) Blastomyces Ag Result Blastomyces Ag Comment ng/mL COVID-19 Source SARS-CoV-2 (PCR) (Negative) Urine Histoplasma Ag U Histoplasma Ag Index ng/mL Human Metapneumovir RNA (Negative) Influenza Type A (PCR) (Negative) Influenza Type B (PCR) (Negative) Urine Legionella Ag (Negative) M. pneumoniae Source M. pneumoniae (PCR) Parainfluenza 1 (PCR) (Negative) Parainfluenza 2 (PCR) (Negative) Parainfluenza 3 (PCR) (Negative) Parainfluenza 4 (PCR) (Negative) Aspergillus Ag (EIA) RSV (PCR) (Negative) Resp Viral Spec Desc Rhinovirus (PCR) (Negative) Ur Strep pneumoniae Ag (Negative) TB Test Ag - Nil 1 IU/mL TB Test Ag - Nil 2 IU/mL TB Test (QFT) Interp (Negative) B-(1,3)-D-Glucan Quant (<60 pg/mL) pg/mL B-(1,3)-D-Glucan Qual (Negative) Range/Units 07/31/22 07/31/22 07/31/22 13:10 14:17 14:17 WBC (4.4-10.8) 10^3/uL RBC (4.36-5.78) 10^6/uL Hgb (13.5-17.5) g/dL Hct (40.0-50.0) % MCV (80-95) fL MCH (27.0-33.0) pg MCHC (32.0-36.0) % RDW (11.8-14.1) % Plt Count (130-400) 10^3/uL MPV (8.0-11.0) fL Immature Gran % Neutrophils % Lymphocytes % Monocytes % Eosinophils % Basophils % Nucleated RBC % (0.0-0.3) % Absolute Neutrophils (1.2-6.7) 10^3/uL Absolute Lymphocytes (1.2-3.4) 10^3/uL Absolute Monocytes (0.1-0.8) 10^3/uL Absolute Eosinophils (0.0-0.7) 10^3/uL Absolute Basophils (0.0-0.2) 10^3/uL ESR (0-20) mm/hr PT (9.3-11.0) sec INR (0.9-1.1) APTT (21.5-31.9) sec D-Dimer (<500) ng/mlFEU Sodium (136-145) mmol/L Potassium (3.5-5.1) mmol/L Chloride (98-107) mmol/L Carbon Dioxide (21.0-32.0) mmol/L Anion Gap (3-11) mmol/L BUN (7-18) mg/dL Creatinine (0.70-1.30) mg/dL Est GFR (CKD-EPI 2020) (mL/min/1.73m2) Glucose (74-106) mg/dL Calcium (8.5-10.1) mg/dL Magnesium (1.8-2.4) mg/dL Total Bilirubin (0.2-1.0) mg/dL AST (15-37) U/L ALT (16-63) U/L Alkaline Phosphatase (46-116) U/L Troponin I (<or=60) ng/L C-Reactive Protein (0.0-0.3) mg/dL NT-Pro-B Natriuret Pep (<300) pg/mL Total Protein (6.4-8.2) g/dL Albumin (3.4-5.0) g/dL Procalcitonin ng/mL PARAM Titer PARAM Titer 2 PARAM Titer 3 PARAM Interpretation (Negative) ANCA Immunofluorescen (Negative) ANCA Titer ANCA Pattern SS-A Antibody (<20.0) Units SS-B Antibody (<20.0) Units Sm (Smiley) Antibody (<20.0) Units Scl-70 IgG Ab U Adenovirus DNA (Negative) Blastomyces Ag Result Not Detected Blastomyces Ag Comment ng/mL Not Detected COVID-19 Source SARS-CoV-2 (PCR) (Negative) Urine Histoplasma Ag Not Detected U Histoplasma Ag Index ng/mL Not Detected Human Metapneumovir RNA (Negative) Influenza Type A (PCR) (Negative) Influenza Type B (PCR) (Negative) Urine Legionella Ag (Negative) M. pneumoniae Source M. pneumoniae (PCR) Parainfluenza 1 (PCR) (Negative) Parainfluenza 2 (PCR) (Negative) Parainfluenza 3 (PCR) (Negative) Parainfluenza 4 (PCR) (Negative) Aspergillus Ag (EIA) RSV (PCR) (Negative) Resp Viral Spec Desc Rhinovirus (PCR) (Negative) Ur Strep pneumoniae Ag (Negative) TB Test Ag - Nil 1 IU/mL TB Test Ag - Nil 2 IU/mL TB Test (QFT) Interp (Negative) B-(1,3)-D-Glucan Quant (<60 pg/mL) pg/mL <31 B-(1,3)-D-Glucan Qual (Negative) Negative Range/Units 07/31/22 08/01/22 08/01/22 Unknown 06:12 06:12 WBC (4.4-10.8) 10^3/uL 14.58 H RBC (4.36-5.78) 10^6/uL 4.32 L Hgb (13.5-17.5) g/dL 13.4 L Hct (40.0-50.0) % 40.4 MCV (80-95) fL 94 MCH (27.0-33.0) pg 31.0 MCHC (32.0-36.0) % 33.2 RDW (11.8-14.1) % 13.4 Plt Count (130-400) 10^3/uL 212 MPV (8.0-11.0) fL 8.3 Immature Gran % 0.8 Neutrophils % 88.3 Lymphocytes % 6.9 Monocytes % 3.9 Eosinophils % 0.0 Basophils % 0.1 Nucleated RBC % (0.0-0.3) % 0.0 Absolute Neutrophils (1.2-6.7) 10^3/uL 12.87 H Absolute Lymphocytes (1.2-3.4) 10^3/uL 1.01 L Absolute Monocytes (0.1-0.8) 10^3/uL 0.57 Absolute Eosinophils (0.0-0.7) 10^3/uL 0.00 Absolute Basophils (0.0-0.2) 10^3/uL 0.01 ESR (0-20) mm/hr PT (9.3-11.0) sec INR (0.9-1.1) APTT (21.5-31.9) sec D-Dimer (<500) ng/mlFEU Sodium (136-145) mmol/L 137 Potassium (3.5-5.1) mmol/L 3.9 Chloride (98-107) mmol/L 104 Carbon Dioxide (21.0-32.0) mmol/L 26.1 Anion Gap (3-11) mmol/L 6.9 BUN (7-18) mg/dL 27 H Creatinine (0.70-1.30) mg/dL 1.1 Est GFR (CKD-EPI 2020) (mL/min/1.73m2) 78.30 Glucose (74-106) mg/dL 130 H Calcium (8.5-10.1) mg/dL 9.0 Magnesium (1.8-2.4) mg/dL 2.3 Total Bilirubin (0.2-1.0) mg/dL AST (15-37) U/L ALT (16-63) U/L Alkaline Phosphatase (46-116) U/L Troponin I (<or=60) ng/L C-Reactive Protein (0.0-0.3) mg/dL 2.79 H NT-Pro-B Natriuret Pep (<300) pg/mL Total Protein (6.4-8.2) g/dL Albumin (3.4-5.0) g/dL Procalcitonin ng/mL PARAM Titer PARAM Titer 2 PARAM Titer 3 PARAM Interpretation (Negative) ANCA Immunofluorescen (Negative) ANCA Titer ANCA Pattern SS-A Antibody (<20.0) Units SS-B Antibody (<20.0) Units Sm (Smiley) Antibody (<20.0) Units Scl-70 IgG Ab U Adenovirus DNA (Negative) Blastomyces Ag Result Cancelled Blastomyces Ag Comment ng/mL Cancelled COVID-19 Source SARS-CoV-2 (PCR) (Negative) Urine Histoplasma Ag U Histoplasma Ag Index ng/mL Human Metapneumovir RNA (Negative) Influenza Type A (PCR) (Negative) Influenza Type B (PCR) (Negative) Urine Legionella Ag (Negative) M. pneumoniae Source M. pneumoniae (PCR) Parainfluenza 1 (PCR) (Negative) Parainfluenza 2 (PCR) (Negative) Parainfluenza 3 (PCR) (Negative) Parainfluenza 4 (PCR) (Negative) Aspergillus Ag (EIA) RSV (PCR) (Negative) Resp Viral Spec Desc Rhinovirus (PCR) (Negative) Ur Strep pneumoniae Ag (Negative) TB Test Ag - Nil 1 IU/mL TB Test Ag - Nil 2 IU/mL TB Test (QFT) Interp (Negative) B-(1,3)-D-Glucan Quant (<60 pg/mL) pg/mL B-(1,3)-D-Glucan Qual (Negative) Range/Units 08/02/22 08/02/22 08/02/22 06:12 06:12 06:12 WBC (4.4-10.8) 10^3/uL RBC (4.36-5.78) 10^6/uL Hgb (13.5-17.5) g/dL Hct (40.0-50.0) % MCV (80-95) fL MCH (27.0-33.0) pg MCHC (32.0-36.0) % RDW (11.8-14.1) % Plt Count (130-400) 10^3/uL MPV (8.0-11.0) fL Immature Gran % Neutrophils % Lymphocytes % Monocytes % Eosinophils % Basophils % Nucleated RBC % (0.0-0.3) % Absolute Neutrophils (1.2-6.7) 10^3/uL Absolute Lymphocytes (1.2-3.4) 10^3/uL Absolute Monocytes (0.1-0.8) 10^3/uL Absolute Eosinophils (0.0-0.7) 10^3/uL Absolute Basophils (0.0-0.2) 10^3/uL ESR (0-20) mm/hr PT (9.3-11.0) sec INR (0.9-1.1) APTT (21.5-31.9) sec D-Dimer (<500) ng/mlFEU Sodium (136-145) mmol/L Potassium (3.5-5.1) mmol/L Chloride (98-107) mmol/L Carbon Dioxide (21.0-32.0) mmol/L Anion Gap (3-11) mmol/L BUN (7-18) mg/dL Creatinine (0.70-1.30) mg/dL Est GFR (CKD-EPI 2020) (mL/min/1.73m2) Glucose (74-106) mg/dL Calcium (8.5-10.1) mg/dL Magnesium (1.8-2.4) mg/dL Total Bilirubin (0.2-1.0) mg/dL AST (15-37) U/L ALT (16-63) U/L Alkaline Phosphatase (46-116) U/L Troponin I (<or=60) ng/L C-Reactive Protein (0.0-0.3) mg/dL 1.36 H NT-Pro-B Natriuret Pep (<300) pg/mL Total Protein (6.4-8.2) g/dL Albumin (3.4-5.0) g/dL Procalcitonin ng/mL < 0.1 PARAM Titer PARAM Titer 2 PARAM Titer 3 PARAM Interpretation (Negative) ANCA Immunofluorescen (Negative) ANCA Titer ANCA Pattern SS-A Antibody (<20.0) Units SS-B Antibody (<20.0) Units Sm (Smiley) Antibody (<20.0) Units Scl-70 IgG Ab U Adenovirus DNA (Negative) Blastomyces Ag Result Blastomyces Ag Comment ng/mL COVID-19 Source SARS-CoV-2 (PCR) (Negative) Urine Histoplasma Ag U Histoplasma Ag Index ng/mL Human Metapneumovir RNA (Negative) Influenza Type A (PCR) (Negative) Influenza Type B (PCR) (Negative) Urine Legionella Ag (Negative) M. pneumoniae Source M. pneumoniae (PCR) Parainfluenza 1 (PCR) (Negative) Parainfluenza 2 (PCR) (Negative) Parainfluenza 3 (PCR) (Negative) Parainfluenza 4 (PCR) (Negative) Aspergillus Ag (EIA) RSV (PCR) (Negative) Resp Viral Spec Desc Rhinovirus (PCR) (Negative) Ur Strep pneumoniae Ag (Negative) TB Test Ag - Nil 1 IU/mL 0.00 TB Test Ag - Nil 2 IU/mL 0.00 TB Test (QFT) Interp (Negative) Negative B-(1,3)-D-Glucan Quant (<60 pg/mL) pg/mL B-(1,3)-D-Glucan Qual (Negative) Range/Units 08/02/22 08/02/22 08/02/22 06:12 06:12 06:12 WBC (4.4-10.8) 10^3/uL 11.94 H RBC (4.36-5.78) 10^6/uL 4.31 L Hgb (13.5-17.5) g/dL 13.5 Hct (40.0-50.0) % 40.5 MCV (80-95) fL 94 MCH (27.0-33.0) pg 31.3 MCHC (32.0-36.0) % 33.3 RDW (11.8-14.1) % 13.4 Plt Count (130-400) 10^3/uL 197 MPV (8.0-11.0) fL 8.5 Immature Gran % 0.9 Neutrophils % 89.0 Lymphocytes % 5.5 Monocytes % 4.4 Eosinophils % 0.1 Basophils % 0.1 Nucleated RBC % (0.0-0.3) % 0.0 Absolute Neutrophils (1.2-6.7) 10^3/uL 10.63 H Absolute Lymphocytes (1.2-3.4) 10^3/uL 0.66 L Absolute Monocytes (0.1-0.8) 10^3/uL 0.53 Absolute Eosinophils (0.0-0.7) 10^3/uL 0.01 Absolute Basophils (0.0-0.2) 10^3/uL 0.01 ESR (0-20) mm/hr 21 H PT (9.3-11.0) sec INR (0.9-1.1) APTT (21.5-31.9) sec D-Dimer (<500) ng/mlFEU Sodium (136-145) mmol/L Potassium (3.5-5.1) mmol/L Chloride (98-107) mmol/L Carbon Dioxide (21.0-32.0) mmol/L Anion Gap (3-11) mmol/L BUN (7-18) mg/dL Creatinine (0.70-1.30) mg/dL Est GFR (CKD-EPI 2020) (mL/min/1.73m2) Glucose (74-106) mg/dL Calcium (8.5-10.1) mg/dL Magnesium (1.8-2.4) mg/dL Total Bilirubin (0.2-1.0) mg/dL AST (15-37) U/L ALT (16-63) U/L Alkaline Phosphatase (46-116) U/L Troponin I (<or=60) ng/L C-Reactive Protein (0.0-0.3) mg/dL NT-Pro-B Natriuret Pep (<300) pg/mL Total Protein (6.4-8.2) g/dL Albumin (3.4-5.0) g/dL Procalcitonin ng/mL PARAM Titer PARAM Titer 2 PARAM Titer 3 PARAM Interpretation (Negative) ANCA Immunofluorescen (Negative) ANCA Titer ANCA Pattern SS-A Antibody (<20.0) Units 1.3 SS-B Antibody (<20.0) Units 2.2 Sm (Smiley) Antibody (<20.0) Units 2.0 Scl-70 IgG Ab U <0.2 Adenovirus DNA (Negative) Blastomyces Ag Result Blastomyces Ag Comment ng/mL COVID-19 Source SARS-CoV-2 (PCR) (Negative) Urine Histoplasma Ag U Histoplasma Ag Index ng/mL Human Metapneumovir RNA (Negative) Influenza Type A (PCR) (Negative) Influenza Type B (PCR) (Negative) Urine Legionella Ag (Negative) M. pneumoniae Source M. pneumoniae (PCR) Parainfluenza 1 (PCR) (Negative) Parainfluenza 2 (PCR) (Negative) Parainfluenza 3 (PCR) (Negative) Parainfluenza 4 (PCR) (Negative) Aspergillus Ag (EIA) RSV (PCR) (Negative) Resp Viral Spec Desc Rhinovirus (PCR) (Negative) Ur Strep pneumoniae Ag (Negative) TB Test Ag - Nil 1 IU/mL TB Test Ag - Nil 2 IU/mL TB Test (QFT) Interp (Negative) B-(1,3)-D-Glucan Quant (<60 pg/mL) pg/mL B-(1,3)-D-Glucan Qual (Negative) Range/Units 08/02/22 08/02/22 08/03/22 06:12 06:12 11:35 WBC (4.4-10.8) 10^3/uL 16.46 H RBC (4.36-5.78) 10^6/uL 4.65 Hgb (13.5-17.5) g/dL 14.3 Hct (40.0-50.0) % 43.0 MCV (80-95) fL 93 MCH (27.0-33.0) pg 30.8 MCHC (32.0-36.0) % 33.3 RDW (11.8-14.1) % 13.6 Plt Count (130-400) 10^3/uL 201 MPV (8.0-11.0) fL 8.4 Immature Gran % 1.3 Neutrophils % 88.7 Lymphocytes % 3.1 Monocytes % 6.7 Eosinophils % 0.0 Basophils % 0.2 Nucleated RBC % (0.0-0.3) % 0.0 Absolute Neutrophils (1.2-6.7) 10^3/uL 14.60 H Absolute Lymphocytes (1.2-3.4) 10^3/uL 0.51 L Absolute Monocytes (0.1-0.8) 10^3/uL 1.10 H Absolute Eosinophils (0.0-0.7) 10^3/uL 0.00 Absolute Basophils (0.0-0.2) 10^3/uL 0.03 ESR (0-20) mm/hr PT (9.3-11.0) sec INR (0.9-1.1) APTT (21.5-31.9) sec D-Dimer (<500) ng/mlFEU Sodium (136-145) mmol/L Potassium (3.5-5.1) mmol/L Chloride (98-107) mmol/L Carbon Dioxide (21.0-32.0) mmol/L Anion Gap (3-11) mmol/L BUN (7-18) mg/dL Creatinine (0.70-1.30) mg/dL Est GFR (CKD-EPI 2020) (mL/min/1.73m2) Glucose (74-106) mg/dL Calcium (8.5-10.1) mg/dL Magnesium (1.8-2.4) mg/dL Total Bilirubin (0.2-1.0) mg/dL AST (15-37) U/L ALT (16-63) U/L Alkaline Phosphatase (46-116) U/L Troponin I (<or=60) ng/L C-Reactive Protein (0.0-0.3) mg/dL NT-Pro-B Natriuret Pep (<300) pg/mL Total Protein (6.4-8.2) g/dL Albumin (3.4-5.0) g/dL Procalcitonin ng/mL PARAM Titer PARAM Titer 2 PARAM Titer 3 PARAM Interpretation (Negative) ANCA Immunofluorescen (Negative) Negative ANCA Titer Not Applicable ANCA Pattern Not Applicable SS-A Antibody (<20.0) Units SS-B Antibody (<20.0) Units Sm (Smiley) Antibody (<20.0) Units Scl-70 IgG Ab U Adenovirus DNA (Negative) Blastomyces Ag Result Blastomyces Ag Comment ng/mL COVID-19 Source SARS-CoV-2 (PCR) (Negative) Urine Histoplasma Ag U Histoplasma Ag Index ng/mL Human Metapneumovir RNA (Negative) Influenza Type A (PCR) (Negative) Influenza Type B (PCR) (Negative) Urine Legionella Ag (Negative) M. pneumoniae Source M. pneumoniae (PCR) Parainfluenza 1 (PCR) (Negative) Parainfluenza 2 (PCR) (Negative) Parainfluenza 3 (PCR) (Negative) Parainfluenza 4 (PCR) (Negative) Aspergillus Ag (EIA) Cancelled RSV (PCR) (Negative) Resp Viral Spec Desc Rhinovirus (PCR) (Negative) Ur Strep pneumoniae Ag (Negative) TB Test Ag - Nil 1 IU/mL TB Test Ag - Nil 2 IU/mL TB Test (QFT) Interp (Negative) B-(1,3)-D-Glucan Quant (<60 pg/mL) pg/mL B-(1,3)-D-Glucan Qual (Negative) Range/Units 08/03/22 08/04/22 08/06/22 11:35 12:45 06:07 WBC (4.4-10.8) 10^3/uL RBC (4.36-5.78) 10^6/uL Hgb (13.5-17.5) g/dL Hct (40.0-50.0) % MCV (80-95) fL MCH (27.0-33.0) pg MCHC (32.0-36.0) % RDW (11.8-14.1) % Plt Count (130-400) 10^3/uL 192 MPV (8.0-11.0) fL Immature Gran % Neutrophils % Lymphocytes % Monocytes % Eosinophils % Basophils % Nucleated RBC % (0.0-0.3) % Absolute Neutrophils (1.2-6.7) 10^3/uL Absolute Lymphocytes (1.2-3.4) 10^3/uL Absolute Monocytes (0.1-0.8) 10^3/uL Absolute Eosinophils (0.0-0.7) 10^3/uL Absolute Basophils (0.0-0.2) 10^3/uL ESR (0-20) mm/hr PT (9.3-11.0) sec INR (0.9-1.1) APTT (21.5-31.9) sec D-Dimer (<500) ng/mlFEU Sodium (136-145) mmol/L 142 Potassium (3.5-5.1) mmol/L 3.8 Chloride (98-107) mmol/L 103 Carbon Dioxide (21.0-32.0) mmol/L 32.5 H Anion Gap (3-11) mmol/L 6.5 BUN (7-18) mg/dL 28 H Creatinine (0.70-1.30) mg/dL 1.1 Est GFR (CKD-EPI 2020) (mL/min/1.73m2) 78.30 Glucose (74-106) mg/dL 119 H Calcium (8.5-10.1) mg/dL 9.3 Magnesium (1.8-2.4) mg/dL Total Bilirubin (0.2-1.0) mg/dL 0.4 AST (15-37) U/L 15 ALT (16-63) U/L 29 Alkaline Phosphatase (46-116) U/L 63 Troponin I (<or=60) ng/L C-Reactive Protein (0.0-0.3) mg/dL 0.64 H NT-Pro-B Natriuret Pep (<300) pg/mL Total Protein (6.4-8.2) g/dL 6.4 Albumin (3.4-5.0) g/dL 2.8 L Procalcitonin ng/mL PARAM Titer PARAM Titer 2 PARAM Titer 3 PARAM Interpretation (Negative) ANCA Immunofluorescen (Negative) ANCA Titer ANCA Pattern SS-A Antibody (<20.0) Units SS-B Antibody (<20.0) Units Sm (Simley) Antibody (<20.0) Units Scl-70 IgG Ab U Adenovirus DNA (Negative) Negative Blastomyces Ag Result Blastomyces Ag Comment ng/mL COVID-19 Source SARS-CoV-2 (PCR) (Negative) Urine Histoplasma Ag U Histoplasma Ag Index ng/mL Human Metapneumovir RNA (Negative) Positive A Influenza Type A (PCR) (Negative) Influenza Type B (PCR) (Negative) Urine Legionella Ag (Negative) M. pneumoniae Source M. pneumoniae (PCR) Parainfluenza 1 (PCR) (Negative) Negative Parainfluenza 2 (PCR) (Negative) Negative Parainfluenza 3 (PCR) (Negative) Negative Parainfluenza 4 (PCR) (Negative) Negative Aspergillus Ag (EIA) RSV (PCR) (Negative) Resp Viral Spec Desc Not Applicable Rhinovirus (PCR) (Negative) Negative Ur Strep pneumoniae Ag (Negative) TB Test Ag - Nil 1 IU/mL TB Test Ag - Nil 2 IU/mL TB Test (QFT) Interp (Negative) B-(1,3)-D-Glucan Quant (<60 pg/mL) pg/mL B-(1,3)-D-Glucan Qual (Negative)
[2022-08-07 07:36] LABS: Abs Immature Grans 0.29 10^3/uL (0.0-0.06); Absolute Basophil Count 0.04 10^3/uL (0.0-0.2); Absolute Lymphocyte Count 0.41 10^3/uL (1.2-3.4); Basophils % 0.3; HCT 43.4 % (40.0-50.0); HGB 14.5 g/dL (13.5-17.5); Immature Grans % 2.5; Lymphocytes % 3.5; MCH 30.8 pg (27.0-33.0); MCHC 33.4 % (32.0-36.0); MCV 92 fL (80-95); MPV 8.7 fL (8.0-11.0); Monocytes % 2.6; Neutrophils % 91.1; Platelet Count 173 10^3/uL (130-400); RBC 4.71 10^6/uL (4.36-5.78); RDW 13.2 % (11.8-14.1); RDW-SD 44.7 fL; WBC 11.75 10^3/uL (4.4-10.8)
[2022-08-07 07:38] LABS: Absolute Monocyte Count 0.31 10^3/uL (0.1-0.8)
[2022-08-07 07:51] LABS: ALT 41 U/L (16-63); AST 17 U/L (15-37); Albumin 2.5 g/dL (3.4-5.0); Alkaline Phosphatase 65 U/L (46-116); Anion Gap 4.6 mmol/L (3-11); BUN 32 mg/dL (7-18); Bilirubin, Total 0.5 mg/dL (0.2-1.0); CO2 29.4 mmol/L (21.0-32.0); Calcium 8.9 mg/dL (8.5-10.1); Chloride 101 mmol/L (98-107); Estimated GFR 87.78 (mL/min/1.73m2); Glucose 150 mg/dL (74-106); Potassium 4.2 mmol/L (3.5-5.1); Sodium 135 mmol/L (136-145)
[2022-08-07] MEDS: Tiotropium Bromide-Respimat 10 PUFF INH 2 PUFF IH (08:08)
[2022-08-07] MEDS: Budesonide/Formoterol 160/4.5 6 GM 60 PUFF INH IH ×2 (08:09→19:55)
[2022-08-07 08:54] LABS: Gram Smear Result Neutrophils Present
[2022-08-07 08:55] LABS: Lymphocytes Fluid Relative 7 %; Mono/Macrophage Fluid Relative 20 %; Neutrophils Fluid Relative 60 %
[2022-08-07 08:56] LABS: Other Cells Fluid Relative 13 %
--- NOTE | 2022-08-07 09:16 | PDOC.CMPRO ---
- If Service Date Differs Date of service: 08/07/22 Time of Service: 09:16 Care Management Progress Note S/O: Shawn is being closely monitored in the ICU. Per report, his organizing pneumonia is worsening clinically and radiologically. His viral panel returned with positive metapneumovirus. MD is considering transfer to [facility] [place], if accepted. CM will continue to follow. A: Shawn is a 56 year old male admitted to [facility] on 07/30/22 for organizing pneumonia. P: Shawn may transfer to [facility] if accepted, and will transport via EMS vs return home once medically cleared. He does not feel that HH services are indicated at this time, as he has support from family and friends. He will follow up with his PCP and discharge plan of care. CM will continue to follow.
--- NOTE | 2022-08-07 09:30 | NUR.NOTE ---
Nursing Note: Notified Dr. Boucher of Patient's VS as follows: HR trending upwards-from 60's to 110 to 118, respiratory rate now up into the 40's with BP of 118/85.
--- NOTE | 2022-08-07 09:34 | NUR.NOTE ---
Nursing Note: Dr. Torres in to see at approximately 0800 then again at 0900. Dr. Boucher in to see patient at approximately 0915.
--- NOTE | 2022-08-07 09:54 | DI.RAD_ITS ---
Exam(s) XR PORTABLE CHEST AP EXAM: XR PORTABLE CHEST AP CLINICAL HISTORY: pneumonia TECHNIQUE: 2D digital imaging was performed of the chest. One image was obtained. An AP view was ob tained. COMPARISON: CR XR PORTABLE CHEST AP from 05/12/2022 FINDINGS: Examination limited by poor inspiration. There are low lung volumes. MEDIASTINUM: Normal. HEART: Normal. PULMONARY VASCULATURE: Normal. LUNGS: There are bilateral pulmonary opacities. There are more prominent compared to the examination from 05/12. PLEURAL SPACE: No pleural effusion or pneumothorax. BONE:Within normal limits for the patient's age. OTHER FINDINGS:Normal. IMPRESSION: 1. Examination limited by low lung volumes. 2. Bilateral pulmonary infiltrates which have progressed since the prior examination. This may repre sent a superimposed pneumonia. Interstitial edema cannot be excluded. Please correlate clinically. DATA REPOSITORY: RADIATION DOSE DELIVERED:
[2022-08-07] MEDS: Benzonatate 200 MG CAP PO ×3 (09:56→20:04)
[2022-08-07] MEDS: Docusate Sodium 100 MG CAP PO ×3 (09:56→20:04)
[2022-08-07] MEDS: Azithromycin 250 MG TAB PO (09:56)
[2022-08-07] MEDS: Pantoprazole 40 MG TABCR PO (09:56)
[2022-08-07] MEDS: Apixaban 5 MG TAB 10 MG PO ×2 (09:56→20:03)
[2022-08-07] MEDS: guaiFENesin 600 MG TABCR 1200 MG PO ×2 (09:58→20:03)
[2022-08-07] MEDS: methylPREDNISolone SUCC 500 MG in Normal Saline 100 ML 216 MG IVPB ×2 (10:03→20:18)
[2022-08-07] MEDS: Insulin NPH-Human 300 UNITS/3 ML PEN 25 UNIT SC ×2 (10:20→20:22)
--- NOTE | 2022-08-07 11:11 | NUR.NOTE ---
Nursing Note: MD notification to Dr. Torres via [employer]: ICU Nurse Ute here. Patient in room 222, his respiratory rates are now between 40-50 sustained. He is on 8L oxygen via NC (green tubing-high flow). BP 128/72. Since 08 this morning his heart rate has been 105 and 120 sustained, overnight his heart rate was in the 60's. His chest xray worse than yesterday per Dr. Boucher. Dr. Boucher also notified of above vital signs at this time as well.
[2022-08-07] MEDS: Sulfameth/Trimeth DS TAB 1 TAB PO (16:41)
--- NOTE | 2022-08-07 17:29 | W.PM.PROGNOT ---
Date of Service Date of service: 08/07/22 Time of Service: 17:30 Assessment and Plan Assessment and plan (1) Organizing pneumonia: Status: Acute Assessment and plan: Reccommendations as per Dr. Torres as listed below: Hypoxic respiratory failure - supplemental O2 for sats >90% - wean off HFNC as tolerated; have not been able to do so. In fact increased to 60% FIO2 from 50% late this afternoon. Organizing pneumonia - BAL with 60% neutrophils, no bacterial or fungal infections seen - recommend 500mg IV methylprednisilone bid for 3 days, followed by weaning to 40mg daily over 3 days - he is already on Bactrim ppx - most rheumatologic testing negative - some tests still pending Human metapneumovirus pneumonia - recommend trial of ribavirn 600mg bid for 7-10 days (pharmacy to order this in, will be here in the morning on 08/07[place] [facility] [place]. [place] bed available and did not meet ICU criteria; he would if resp. status declines further. (2) Respiratory failure with hypoxia: Status: Acute Assessment and plan: as above (3) Human metapneumovirus (hMPV) pneumonia: Status: Acute Assessment and plan: Trial of ribavirin. (4) Right leg DVT: Status: Acute Assessment and plan: on apixaban 10 mg bid through 08/11/22 @ 20:00, should begin 5 mg bid beginning on morning of 08/12 (5) DVT prophylaxis: Status: Acute Assessment and plan: on apixaban Subjective Subjective Patient reports: nausea, vomiting, shortness of breath and afebrile Interval history since last seen: Transferred to ICU yesterday d/t increased BYERS. Exam Narrative Exam Narrative: Gen: Lying semireclined in bed. Highflow nasal cannula in place. Pleasant and conversant. Lungs: diffuse fine rales in all lung carlin Heart: regular rate and rhythm now Abdomen: soft, non-distended, nontender Legs: no edema, no peripheral cyanosis Objective Last Vital Signs Temp 37.0 C 08/07/22 11:20 Pulse 108 H 08/07/22 14:00 Resp 46 H 08/07/22 14:00 BP 124/77 08/07/22 14:00 Pulse Ox 89 L 08/07/22 14:00 Laboratory Results - last 24 hr 08/04/22 08/04/2208/07/23 12:45 12:47 07:25 WBC RBC Hgb Hct MCV MCH MCHC RDW Plt Count MPV Immature Gran % Neutrophils % Lymphocytes % Monocytes % Eosinophils % Basophils % Nucleated RBC % Absolute Neutrophils Absolute Lymphocytes Absolute Monocytes Absolute Eosinophils Absolute Basophils Sodium 135 L Potassium 4.2 Chloride 101 Carbon Dioxide 29.4 Anion Gap 4.6 BUN 32 H Creatinine 1.0 Est GFR (CKD-EPI 2020) 87.78 Glucose 150 H Calcium 8.9 Total Bilirubin 0.5 AST 17 ALT 41 Alkaline Phosphatase 65 Total Protein 6.0 L Albumin 2.5 L Bronchial Other Cells 13 BAL Neutrophils 60 BAL Lymphocytes 7 BAL Eosinophils Not Applicable BAL Monocyte/Macrophage 20 Gram Stain Neutrophils Present A SEE BELOW A Aerobic Culture No Growth No Growth Ref Test Specimen Type Not Applicable Not Applicable Ref Report Verification Not Applicable Not Applicable 08/07/22 07:25 WBC 11.75 H RBC 4.71 Hgb 14.5 Hct 43.4 MCV 92 MCH 30.8 MCHC 33.4 RDW 13.2 Plt Count 173 MPV 8.7 Immature Gran % 2.5 Neutrophils % 91.1 Lymphocytes % 3.5 Monocytes % 2.6 Eosinophils % 0.0 Basophils % 0.3 Nucleated RBC % 0.0 Absolute Neutrophils 10.70 H Absolute Lymphocytes 0.41 L Absolute Monocytes 0.31 Absolute Eosinophils 0.00 Absolute Basophils 0.04 Sodium Potassium Chloride Carbon Dioxide Anion Gap BUN Creatinine Est GFR (CKD-EPI 2020) Glucose Calcium Total Bilirubin AST ALT Alkaline Phosphatase Total Protein Albumin Bronchial Other Cells BAL Neutrophils BAL Lymphocytes BAL Eosinophils BAL Monocyte/Macrophage Gram Stain Aerobic Culture Ref Test Specimen Type Ref Report Verification Time Spent with Patient Time Spent with Patient: 35-49 minutes Time was spent: preparing to see the patient(eg.review tests), obtaining and/or reviewing separately otained hiistory, ordering medications,tests, procedures, referring, communicating with other health client care manager and indepentently interpreting results
[2022-08-07] MEDS: Insulin Aspart 300 UNITS/3 ML PEN SC (18:31)
[2022-08-07] MEDS: MORPHine 2 MG/ML SYR IVP (20:13)
[2022-08-07] MEDS: Normal Saline Flush 10 ML SYR IVP (20:13)
--- NOTE | 2022-08-07 20:30 | DSE_ITS ---
Date of service: 08/07/22 Time of Service: 20:30 DS: Diagnosis Discharge Diagnosis (1) Organizing pneumonia: Status: Acute Asessment and Plan: Pulmonary/critical care followed. Bronchoscopy performed. His BAL found no malignancy, negative silver stain and a pattern of acute inflammation. His extended viral panel did return with positive metapneumovirus. It appears that his organizing pneumonia has been worsening with time and he now has contracted an additional viral infection that has acutely exacerbated his respiratory decompensation. Ribavirin does have anti-viral activity against human metapneumovirus and it was initiated on 08/07/22. Given the inflammatory pattern of the BAL, pulse dose steroid regimen for 3 days (methylprednisolone 500mg IV BID) in order to see if this helps (now that fungal infection has been thoroughly ruled out).? He is on prophylactic bactrim dosing. (2) Respiratory failure with hypoxia: Status: Acute Asessment and Plan: He has had a gradual decline in his respiratory status. On the day of discharge he declined from requiring 8L NC to Highflow O2 with increasing needs. He easily desaturated with minimal activity and with conversation. (3) Human metapneumovirus (hMPV) pneumonia: Status: Acute Asessment and Plan: A trial of ribavirin initiated on day of transfer to [facility]. (4) Right leg DVT: Status: Acute Asessment and Plan: On apixiban. Discharge Plan Disposition Specific Acute Inpt Facility: [facility] Condition: Deteriorating Discharge Details Reason For Visit: Organizing Pneumonia,Question of Pulmonary Fibrosi Admit Date/Time: 07/30/22 16:41 Admit Provider: Kathia Peterson Attending Provider: Kathia Peterson Primary Care Provider: Nathaniel Gallagher Hospital Course Hospital Course: Mr Ospina is a 56 year old male with PMHx of chronic hypoxic respiratory failure post COVID-19 in 05/07, on 5L of O2 by NC at baseline as well as on prednisone 40 mg PO daily and bactrim for PJP prophylaxis, as well as h/o organizing pneumonia, suspected conventional bacterial pneumonia that he just completed levofloxacin for yesterday, Obesity with BMI of 30 kg/m2, who presented to [facility] ED c/o worsening shortness of breath x 3 weeks, especially so on morning of this admission. The patient admitted to not sleeping with his oxygen on for the last 4-5 days because he is usually more comfortable in bed without it, but this morning he could not get up from the bed or talk when he woke up. He endorsed green hard sputum productive, denies fevers. He also reported RLE/R ankle swelling in the last few days, not normal for him.? He remains on 5 L of O2 by MI, but is very symptomatic of his shortness of breath/dyspnea on exertion/tachypnea. His d-dimer was elevated, and he underwent a CTA of the chest which showed no evidence of PE but did reveal an interval worsening of bilateral infiltrates. His procalcitonin was negative. [facility] pulmonology, who follows him, was consulted and recommended high dose steroids (either solumedrol 125 mg daily or 60 mg BID). The role for antibiotics was unclear. There were no beds available at [facility] for inpatient transfer and no ability to do bronchoscopy until next week. [facility] and [facility] were also at capacity. We did not have pulmonology in house until 4 days after admission date. See Diagnosis Home Meds and New Rx's Prescriptions: No Action sulfamethoxazole-trimethoprim [Bactrim DS] 800-160 mg tablet 1 tab PO DAILY Qty: 60 0RF Rx Instructions: Take while on a prednisone dose of 20mg and higher ipratropium-albuterol 20-100 mcg/actuation mist See Rx Instructions inhalation QID PRN (Reason: shortness of breath or wheezing) Qty: 4 12RF Rx Instructions: 1-2 inhaled four times a day PRN; space evenly during waking hours Anoro Ellipta 62.5-25 mcg/actuation blister with device 1 inh inhalation DAILY prednisone 20 mg tablet 40 mg PO DAILY Rx Instructions: Take 3 tabs daily for 14 days, then 2.5 tabs daily for 14 days, then 2 tabs daily for 7 days, then 1.5 tabs daily for 7 days, then 1 tab daily for 7 days, then 0.5 tabs daily for 7 days Mucinex DM 30-600 mg Tablet Extended Release 12 Hr 1 tab PO BID azithromycin 500 mg tablet 500 mg PO DAILY Probiotic 10 billion cell Capsule 10,000 mmu cells PO DAILY Discharge Instructions Activity:: Bed only Equipment/Supplies:: No Equipment Needed Diet:: As Tolerated DS: Summary Time Spent with Patient providing and/or coordinating discharge services: Greater than 30 minutes Status at Discharge Functional status at discharge: bed bound (As precaution due to hypoxia. ) Overall status at discharge: patient is not back to baseline Mental Status: mental status grossly normal Speech and Movement: speech clear Mood: congruent mood Affect: anxious affect Exam Narrative Exam Narrative: Gen: Lying semireclined in bed. Highflow nasal cannula in place. Anxious appearing. Lungs: diffuse fine rales in all lung carlin. Short of air with conversation. Heart: regular rate and rhythm now Abdomen: soft, non-distended, nontender Legs: no edema, no peripheral cyanosis Psych Mental Status: mental status grossly normal Speech and Movement: speech clear Mood: congruent mood Affect: anxious affect DS: Data Vitals/I&O Vitals and I&O: Vital Signs Temperature 36.9 C 08/07/22 20:00 Temperature Source Temporal Artery Scan 08/07/22 20:00 Pulse 111 H 08/07/22 17:42 Pulse Rhythm Regular 08/06/22 16:59 Pulse 107 H 08/07/22 14:00 Respiratory Rate 31 H 08/07/22 17:42 Respiratory Effort Short of Breath, Labored, Incrsd Work of Breathing 08/07/22 11:20 Respiratory Depth Shallow 08/07/22 11:20 Respiratory Pattern Tachypnea 08/07/22 11:20 Blood Pressure 124/77 08/07/22 14:00 Blood Pressure Mean 84 08/07/22 14:00 Blood Pressure Position Supine 08/07/22 11:20 Pulse Oximetry 92 08/07/22 17:42 Oxygen Delivery Method High Flow System 08/07/22 17:35 Oxygen Flow Rate 35 08/07/22 17:37 Fraction of Inspired Oxygen (FIO2) 60 08/07/22 17:37 Pain Level 0 08/07/22 08:25 Comment RN present, aware 08/06/22 20:30 Intake & Output 08/06/22 08/07/22 08/07/22 23:59 11:59 23:59 Intake Total 668 / 1128 868 / 1448 580 / 1448 Output Total 525 / 1300 985 / 985 Balance 143 / -172 -117 / 463 580 / 463 Weight 81.5 kg Intake: IV 308 / 408 308 / 408 100 / 408 Oral 360 / 720 560 / 1040 480 / 1040 Output: Urine 525 / 1300 985 / 985 Other: Urine Color Straw Yellow Urine Appearance Clear Clear Urine Odor Normal Normal Comment Void x1 in the urinal. Patient voids in urinal. Voiding Methods Urinal Urinal Data Completed and Pending Labs on day of discharge: Labs from last 24 hours 08/07/22 08/07/22 08/04/22 07:25 07:25 12:47 WBC 11.75 H RBC 4.71 Hgb 14.5 Hct 43.4 MCV 92 MCH 30.8 MCHC 33.4 RDW 13.2 Plt Count 173 MPV 8.7 Immature Gran % 2.5 Neutrophils % 91.1 Lymphocytes % 3.5 Monocytes % 2.6 Eosinophils % 0.0 Basophils % 0.3 Nucleated RBC % 0.0 Absolute Neutrophils 10.70 H Absolute Lymphocytes 0.41 L Absolute Monocytes 0.31 Absolute Eosinophils 0.00 Absolute Basophils 0.04 Sodium 135 L Potassium 4.2 Chloride 101 Carbon Dioxide 29.4 Anion Gap 4.6 BUN 32 H Creatinine 1.0 Est GFR (CKD-EPI 2020) 87.78 Glucose 150 H Calcium 8.9 Total Bilirubin 0.5 AST 17 ALT 41 Alkaline Phosphatase 65 Total Protein 6.0 L Albumin 2.5 L Bronchial Other Cells BAL Neutrophils BAL Lymphocytes BAL Eosinophils BAL Monocyte/Macrophage Gram Stain SEE BELOW A Aerobic Culture No Growth Ref Test Specimen Type Not Applicable Ref Report Verification Not Applicable 08/04/22 12:45 WBC RBC Hgb Hct MCV MCH MCHC RDW Plt Count MPV Immature Gran % Neutrophils % Lymphocytes % Monocytes % Eosinophils % Basophils % Nucleated RBC % Absolute Neutrophils Absolute Lymphocytes Absolute Monocytes Absolute Eosinophils Absolute Basophils Sodium Potassium Chloride Carbon Dioxide Anion Gap BUN Creatinine Est GFR (CKD-EPI 2020) Glucose Calcium Total Bilirubin AST ALT Alkaline Phosphatase Total Protein Albumin Bronchial Other Cells 13 BAL Neutrophils 60 BAL Lymphocytes 7 BAL Eosinophils Not Applicable BAL Monocyte/Macrophage 20 Gram Stain Neutrophils Present A Aerobic Culture No Growth Ref Test Specimen Type Not Applicable Ref Report Verification Not Applicable PFSH All Active Problems Human metapneumovirus (hMPV) pneumonia (Acute) Right leg DVT (Acute) Edema of right ankle (Acute) Discharge planning issues (Acute) DVT prophylaxis (Acute) Infiltrate of lung present on computed tomography (Acute) Dyspnea (Acute) COVID-19 long hauler manifesting chronic dyspnea (Acute) Respiratory failure with hypoxia (Acute) Organizing pneumonia (Acute) COVID-19 (Acute) Onset-05/03/22 Obesity (BMI 30.0-34.9) (Acute) Sprain of left thumb (Acute) Surgical History Colonoscopy - IV Sedation (10/05/16) H/O right wrist surgery x2 Family History Mother , 65 No problems noted. Father , 81 No problems noted. Sister No problems noted. Brother No problems noted. Brother , 53 No problems noted. Brother No problems noted. Maternal Grandfather No problems noted. Paternal Grandfather , 77 No problems noted. Maternal Grandmother No problems noted. Paternal Grandmother , 91 No problems noted. Son No problems noted. Son No problems noted. Daughter No problems noted. Social History Smoking/Tobacco Use Status: Never Second Hand Exposure: Yes Smoking risk assessment performed?: Yes Alcohol Intake: never Drug use: Rarely Substance use type: marijuana Details: The patient takes a teaspoon of CBD/THC oil at night to help him sleep Caregiver/Support person: No Household members: children Housing: house Communication Needs: None Do you need help understanding health information?: Never current occupation: [employer] Pets and animals: Yes Pets and animals: cat(s) Sexually active: No Do you think of yourself as: straight/heterosexual Current gender identity: male What is your relationship status?: How often do you talk on the phone with friends or family?: three or more times per week How often do you get together with friends or relatives?: three or more times per week How often do you attend protestant or catholic services?: 1-3 times per year Do you belong to any clubs or organized social groups?: no Panel score (0-1 are the most socially isolated patients): 1 What type of physical activity do you participate in: other Details: Work Duration: 15-30 minutes/day Frequency: 5-6 times per week Francie/Lutheran: Sabianism Special francie needs: No Seatbelt use: sometimes Helmet use: Yes Helmet use: always 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
[2022-08-08 11:44] LABS: dsDNA Ab, IgG <12.3 IU/mL (<30.0)
[2022-09-02 09:05] LABS: Fungus Smear No Fungi Seen
== END 2022-08-07 22:40 | disposition short-term general hospital (02) | DRG 193 ==
LOC: ER 17:17 → MS 17:34 → ICU 08-04 17:07 → MS 08-05 14:05 → ICU 08-06 19:02
PROVIDERS: Internal Medicine; Student in an Organized Health Care Education/Training Program; Admitting Provider Internal Medicine; Emergency Provider Nurse Practitioner Family; PCP Nurse Practitioner Family; Visit Provider Internal Medicine
PROC: 0BJ08ZZ Inspection of Tracheobronchial Tree, Via Natural or Artificial Opening Endoscopic (ICD-10-PCS; CPT 31622; principal; 2022-08-04 12:00)
DX: J12.3 Human metapneumovirus pneumonia (principal); J96.21 Acute and chronic respiratory failure with hypoxia; I82.451 Acute embolism and thrombosis of right peroneal vein; I82.431 Acute embolism and thrombosis of right popliteal vein; I82.441 Acute embolism and thrombosis of right tibial vein; R91.8 Other nonspecific abnormal finding of lung field; J84.89 Other specified interstitial pulmonary diseases; M25.471 Effusion, right ankle; U09.9 Post COVID-19 condition, unspecified; Z99.81 Dependence on supplemental oxygen; Z79.52 Long term (current) use of systemic steroids
CPT/HCPCS: 31624; 36415; 71275; 80048; 80053; 80162; 84145; 85652; 86255; 87040; 87070; 87081; 87102; 87116; 87205; 87206; 87305; 87449; 87632; 87637; 93005; 94640; 96374; 96375; 99285; J1650; 71045; 83735; 83880; 84484; 85025; 85049; 85379; 85610; 85730; 86038; 86140; 86225; 86235; 86480; 87385; 87581; 87899; 88104; 88312; 93010; 93306; 93971; 94664; 94667; 94668; 94760; 99223; 99231; 99232; 99233; 99239; J1941; J2270; J2405; J2704; J2930; J7613; J7620